=== PATIENT | male | born 1940 | race Caucasian/White ===

== ENCOUNTER 2017-02-17 23:47 | Inpatient (IN) | payer MEDICARE ==
[2017-02-18] MEDS ORDERED: Albuterol/Ipratropium NEB.SOL* Albuterol 2.5 MG/Ipratropium 0.5 MG 3 ML INH ONE (00:09)
[2017-02-18 01:01] LABS: Hematocrit 36 % (42-52); Hemoglobin 11.9 g/dl (14.0-18.0); Mean Corpuscular HGB Conc 33 g/dl (31-36); Mean Corpuscular Hemoglobin 28 pg (27-31); Mean Corpuscular Volume 83 fL (80-94); Mean Platelet Volume 10 um3 (7.4-10.4); Red Blood Count 4.29 10^6/ul (4.0-5.4); Red Cell Distribution Width 14 % (10.5-15); White Blood Count 13.6 10^3/ul (3.5-10.8)
[2017-02-18 01:18] LABS: Albumin 4.4 g/dL (3.2-5.2); BUN/Creatinine Ratio 21.8 (8-20); Calcium 9.6 mg/dL (8.6-10.3); EGFR African American 83.5 (>60); EGFR Non-African American 64.9 (>60); Globulin 3.3 g/dL (2-4); Potassium 3.3 mmol/L (3.5-5.0); Total Bilirubin 1.1 mg/dL (0.2-1.0); Total Protein 7.7 g/dL (6.4-8.9)
[2017-02-18 01:20] LABS: Troponin I 0.57 ng/mL (<0.04)
[2017-02-18] MEDS ORDERED: traMADol TAB* 50 MG PO PRN (01:35)
[2017-02-18] MEDS ORDERED: Ondansetron INJ* 2 MG/ML VIAL IV PRN (01:35)
[2017-02-18] MEDS ORDERED: Morphine INJ* 2 MG/ML 1 ML SYRINGE IV PRN (01:35)
[2017-02-18] MEDS ORDERED: CMCS: Melatonin (NF) 3 MG TAB PO PRN (01:35)
[2017-02-18] MEDS ORDERED: Heparin DRIP 25,000 UNITS(*) 25,000 UNITS/500 ML BAG IVPB SCH (01:45)
--- NOTE | 2017-02-18 01:48 | HP ---
H&P (Free Text) History and Physical: PCP: Zelda Chow MD Date/Time of Evaluation: 02/18/2017 0130 CC: SOB HPI: Mr Jim is a 76YO male HX CAD, DM2, & HTN presents reporting onset last night ~2100 of SOB which progressed quickly to included dull, non-exertional L chest discomfort radiating into the L neck associated with nausea, sweating, and light-headedness, but no palpitations. He monitored it at home for 30min to an hour, but called EMS when it was not improving. Reportedly his saO2 was in the high-80s upon their arrival. They placed him on oxygen which seemed to alleviate his symptoms and gave him 324mg chewable aspirin. Upon arrival to [facility] he reports only SOB which is worse with cough. He denies sick contacts & F/C. He frequently produces phlegm at baseline. ECG shows NSR with ischemic changes in the anterolateral leads. Troponin is 0.05. BNP 542. K+ 3.3. Mg++ 1.8. CXR consistent w/ CHF. PMedHx CAD DM2 HTN Ambulatory Orders Hydrochlorothiazide TAB* [Hydrodiuril TAB*] 25 mg PO DAILY 03/27/14 Metronidazole (Topical) [Metronidazole] 0.75 % TOPICAL DAILY 03/27/14 Sildenafil Citrate [Viagra] 50 mg PO DAILY PRN 03/27/14 metFORMIN* [Glucophage*] 1,000 mg PO BID 03/27/14 Ascorbic Acid [Vitamin C] 500 mg PO DAILY 08/01/14 Aspirin EC Low Dose* [Ecotrin EC Low Dose 81 MG*] 81 mg PO DAILY 08/01/14 Emollient [Beta Care] 1 cre EX BID 08/01/14 Hydrocortisone 1% CREAM* [Hytone Cream 1%*] 1 applic TOPICAL DAILY 08/01/14 Metoprolol Tartrate TAB* [Lopressor TAB*] 50 mg PO BID 08/01/14 Multiple Vitamins W/ Minerals [Multi Vitamin/Minerals Fu] 1 tab PO DAILY Juda-3 Fatty Acids [Juda-3 Fish Oil 1000 mg] 1 cap PO BID 08/01/14 Simvastatin TAB(NF) [Zocor(NF)] 40 mg PO 1700 08/01/14 Allergies No Known Allergies Allergy (Verified 02/18/17 00:12) PSurgHx none SocHx: minor smoking HX w/ <10PYHX, mild alcohol, denies recreational drugs; lives with his ; retired mechanical technician; full code status FamHx: positive for CAD & colon CA ROS: as above, otherwise reviewed and all were negative Constitutional: NAD, normally developed, overweight white male vitals: Vital Signs Temp 37.2 C 02/17/17 23:53 Pulse 76 02/18/17 01:16 Resp 14 02/18/17 01:16 BP 153/89 02/17/17 23:53 Pulse Ox 97 02/18/17 01:16 Intake & Output 02/17/17 02/17/17 02/18/17 11:59 23:59 11:59 Weight 83.915 kg HEENM: atraumatic; sclera/conjunctiva: non-icteric/mildly injected OU; hearing: clinically intact; oropharynx: clear, mucosa moist Neck: soft tissue: non-tender; thyroid: normal Pulmonary: clear to auscultation bilaterally, good aeration, no accessory muscle use CV: RR/RR, normal S1S2, no carotid bruit, no jugular venous distention, 2+ B DP/ PT, no edema Abdominal: soft, non-distended, non-tender, no rebound/guarding/rigidity, normoactive bowel sounds, no hepatosplenomegaly or masses, no costovertebral angle tenderness Musculoskeletal: general: grossly intact; gait: stable Integumental: normal appearance and texture of exposed skin Psychiatric orientation: AA&O to PPS affect: calm mood: cooperative eye contact: good content: reliable responses: mildly slowed insight: fair to good Testing: Lab Results 02/18/17 02/18/17 02/18/17 Range/Units 00:20 00:20 00:20 WBC 13.6 H (3.5-10.8) 10^3/ul RBC 4.29 (4.0-5.4) 10^6/ul Hgb 11.9 L (14.0-18.0) g/dl Hct 36 L (42-52) % MCV 83 (80-94) fL MCH 28 (27-31) pg MCHC 33 (31-36) g/dl RDW 14 (10.5-15) % Plt Count 260 (150-450) 10^3/ul MPV 10 (7.4-10.4) um3 Neut % (Auto) 87.0 H (38-83) % Lymph % (Auto) 7.6 L (25-47) % [place] % (Auto) 4.8 (1-9) % Eos % (Auto) 0.2 (0-6) % Baso % (Auto) 0.4 (0-2) % Absolute Neuts (auto) 11.8 H (1.5-7.7) 10^3/ul Absolute Lymphs (auto) 1.0 (1.0-4.8) 10^3/ul Absolute Monos (auto) 0.7 (0-0.8) 10^3/ul Absolute Eos (auto) 0 (0-0.6) 10^3/ul Absolute Basos (auto) 0.1 (0-0.2) 10^3/ul Absolute Nucleated RBC 0 10^3/ul Nucleated RBC % 0 Sodium 130 L (133-145) mmol/L Potassium 3.3 L (3.5-5.0) mmol/L Chloride 93 L (101-111) mmol/L Carbon Dioxide 26 (22-32) mmol/L Anion Gap 11 (2-11) mmol/L BUN 24 (6-24) mg/dL Creatinine 1.10 (0.67-1.17) mg/dL Est GFR ( Amer) 83.5 (>60) Est GFR (Non-Af Amer) 64.9 (>60) BUN/Creatinine Ratio 21.8 H (8-20) Glucose 253 H (70-100) mg/dL Lactic Acid 2.3 H* (0.5-2.0) mmol/L Calcium 9.6 (8.6-10.3) mg/dL Magnesium Pending Total Bilirubin 1.10 H (0.2-1.0) mg/dL AST 26 (13-39) U/L ALT 12 (7-52) U/L Alkaline Phosphatase 71 (34-104) U/L Troponin I 0.57 H* (<0.04) ng/mL B-Natriuretic Peptide ( - 100) pg/mL Total Protein 7.7 (6.4-8.9) g/dL Albumin 4.4 (3.2-5.2) g/dL Globulin 3.3 (2-4) g/dL Albumin/Globulin Ratio 1.3 (1-3) 02/18/17 Range/Units 00:20 WBC (3.5-10.8) 10^3/ul RBC (4.0-5.4) 10^6/ul Hgb (14.0-18.0) g/dl Hct (42-52) % MCV (80-94) fL MCH (27-31) pg MCHC (31-36) g/dl RDW (10.5-15) % Plt Count (150-450) 10^3/ul MPV (7.4-10.4) um3 Neut % (Auto) (38-83) % Lymph % (Auto) (25-47) % [place] % (Auto) (1-9) % Eos % (Auto) (0-6) % Baso % (Auto) (0-2) % Absolute Neuts (auto) (1.5-7.7) 10^3/ul Absolute Lymphs (auto) (1.0-4.8) 10^3/ul Absolute Monos (auto) (0-0.8) 10^3/ul Absolute Eos (auto) (0-0.6) 10^3/ul Absolute Basos (auto) (0-0.2) 10^3/ul Absolute Nucleated RBC 10^3/ul Nucleated RBC % Sodium (133-145) mmol/L Potassium (3.5-5.0) mmol/L Chloride (101-111) mmol/L Carbon Dioxide (22-32) mmol/L Anion Gap (2-11) mmol/L BUN (6-24) mg/dL Creatinine (0.67-1.17) mg/dL Est GFR ( Amer) (>60) Est GFR (Non-Af Amer) (>60) BUN/Creatinine Ratio (8-20) Glucose (70-100) mg/dL Lactic Acid (0.5-2.0) mmol/L Calcium (8.6-10.3) mg/dL Magnesium Total Bilirubin (0.2-1.0) mg/dL AST (13-39) U/L ALT (7-52) U/L Alkaline Phosphatase (34-104) U/L Troponin I (<0.04) ng/mL B-Natriuretic Peptide 542 H ( - 100) pg/mL Total Protein (6.4-8.9) g/dL Albumin (3.2-5.2) g/dL Globulin (2-4) g/dL Albumin/Globulin Ratio (1-3) ECG, personally reviewed: NSR rate 79, ST elevation V1, deep ST depressions V4-6 , I, & II CXR, personally reviewed: most consistent with CHF Impression: 76M presenting with acute mare/systolic HF and NSTEMI DIAGNOSIS & PLAN Primary NSTEMI w/ HX CAD : ? primary cardiac event vs demand ischemia from acute CHF : telemetry : NPO x/ meds : aspirin (given by EMS) : metoprolol : heparin GTT : trend troponin : supplemental oxygen : Marvin Lombardo MD cardiology called by Asa Malagon MD ED; awaiting return call : supportive care acute mare/systolic HF : strict I&Os : daily weights : furosemide diuresis : check ECHO in AM electrolyte imbalance : replace & recheck Secondary DM2 : basal/correctional insulin : NPO as above : hold metformin : check A1c HTN : metoprolol as above : review meds once reconciled Admission Rational: inpatient for management of NSTEMI & acute HF DVTp: SCDs & heparin GTT Code Status: full HCP:
[2017-02-18 01:58] LABS: Magnesium 1.8 mg/dL (1.9-2.7)
--- NOTE | 2017-02-18 02:50 | ED ---
Luc Arango Michael, scribed for Veronika Malagon MD on 02/18/17 at 0113 . Shortness of Breath - HPI Summary HPI Summary: 76 y/o male was BIBA to the ED presenting with intermittent episodes of SOB that started a few weeks ago. The pt reports that the SOB is aggravated with ambulation and does not wake him up during the night. He also c/o CP and a productive cough. The CP started at 2200 on 02/17/17. The CP was alleviated when given oxygen from EMS. Currently, the pt has no CP. He was given 81mg ASA and his oxygen saturation was 88 prior to EMS arrival. In 2013 the pt had similar symptoms. The PMHx is significant for HTN, DM, and hypercholesterolemia. - History of Current Complaint Chief Complaint: EDShortnessOfBreath Time Seen by Provider: 02/18/17 00:08 Hx Obtained From: Patient, EMS, Medical Records Onset/Duration: Gradual Onset, Lasting Weeks, Still Present Timing: Intermittent Episodes Lasting: Current Severity: Moderate Dyspnea At: Exertion Aggrevating Factors: Movement Alleviating Factors: Oxygen Associated Signs & Symptoms: Cough (Productive), Chest Pain Unrelated to Cough - Allergy/Home Medications Allergies/Adverse Reactions: Allergies Allergy/AdvReac Type Severity Reaction Status Date / Time No Known Allergies Allergy Verified 02/18/17 00:12 Home Medications: Home Medications Amlodipine Besylate [Norvasc 10 mg tab] 10 mg PO DAILY 02/18/17 [History Confirmed 02/18/17] Atorvastatin* [Lipitor*] 20 mg PO 2100 02/18/17 [History Confirmed 02/18/17] Cholecalciferol [Vitamin D] 1,000 unit PO QAM 02/18/17 [History Confirmed ] Ferrous Sulfate [Fe Tabs] 325 mg PO BID 02/18/17 [History Confirmed 02/18/17] Hydralazine HCl 1 tab PO TID 02/18/17 [History Confirmed 02/18/17] Potassium Chloride Microencaps [Potassium Chloride Cr] 10 meq PO DAILY 02/18/17 [History Confirmed 02/18/17] PMH/Surg Hx/FS Hx/Imm Hx Endocrine/Hematology History: Reports: Hx Diabetes Denies: Hx Systemic Lupus Erythematosus Cardiovascular History: Reports: Hx Angina, Hx Coronary Artery Disease, Hx Hypercholesterolemia, Hx Hypertension, Other Cardiovascular Problems/Disorders - HYPERCHOLESTEROLEMIA/HEART MURMUR/CAD/IDDM Denies: Hx Congestive Heart Failure History: Denies: Hx Dialysis, Hx Renal Disease Musculoskeletal History: Denies: Hx Rheumatoid Arthritis Sensory History: Reports: Hx Cataracts, Hx Contacts or Glasses, Hx Hearing Problem Opthamlomology History: Reports: Hx Cataracts, Hx Contacts or Glasses - Cancer History Hx Chemotherapy: No - Immunization History Date of Tetanus Vaccine: unk Date of Influenza Vaccine: utd Infectious Disease History: No Infectious Disease History: Denies: Traveled Outside the [place] in Last 30 Days - Family History Known Family History: Positive: Cardiac Disease - Social History Occupation: Retired Lives: With Family Alcohol Use: Weekly Alcohol Amount: 1-2 beers Substance Use Type: Reports: None Hx Tobacco Use: Yes Smoking Status (MU): Former Smoker Type: Cigarettes Length of Time of Smoking/Using Tobacco: 8 years Have You Smoked in the Last Year: No Review of Systems Positive: Chest Pain Positive: Shortness Of Breath, Cough All Other Systems Reviewed And Are Negative: Yes Physical Exam Triage Information Reviewed: Yes Vital Signs On Initial Exam: Initial Vitals Temp Pulse Resp BP Pulse Ox 99.0 F 87 16 153/89 94 02/17/17 23:53 02/17/17 23:53 02/17/17 23:53 02/17/17 23:53 02/17/17 23:53 Vital Signs Reviewed: Yes Appearance: Positive: Well-Appearing, No Pain Distress Skin: Positive: Warm, Skin Color Reflects Adequate Perfusion, Dry Eyes: Positive: EOMI, [place] ENT: Positive: Pharynx normal, TMs normal Neck: Positive: Supple, Nontender Respiratory/Lung Sounds: Positive: Breath Sounds Present, Other - crackles. Negative: Rales, Rhonchi, Wheezes Cardiovascular: Positive: RRR, Other - no gallops. Negative: Murmur, Rub Abdomen Description: Positive: Nontender, Soft, Other: - no rebound. Negative: Distended, Guarding Bowel Sounds: Positive: Present Musculoskeletal: Positive: Strength/ROM Intact. Negative: Edema Left, Edema Right Neurological: Positive: Sensory/Motor Intact, Alert, Oriented to Person Place, Time, CN Intact II-III Psychiatric: Positive: Affect/Mood Appropriate - [place]e Coma Scale Coma Scale Total: 15 Diagnostics - Vital Signs Vital Signs Temp Pulse Resp BP Pulse Ox 02/17/17 23:53 99.0 F 87 16 153/89 94 - Laboratory Lab Results: Lab Results 02/18/17 02/18/17 02/18/17 Range/Units 00:20 00:20 00:20 WBC 13.6 H (3.5-10.8) 10^3/ul RBC 4.29 (4.0-5.4) 10^6/ul Hgb 11.9 L (14.0-18.0) g/dl Hct 36 L (42-52) % MCV 83 (80-94) fL MCH 28 (27-31) pg MCHC 33 (31-36) g/dl RDW 14 (10.5-15) % Plt Count 260 (150-450) 10^3/ul MPV 10 (7.4-10.4) um3 Neut % (Auto) 87.0 H (38-83) % Lymph % (Auto) 7.6 L (25-47) % [place] % (Auto) 4.8 (1-9) % Eos % (Auto) 0.2 (0-6) % Baso % (Auto) 0.4 (0-2) % Absolute Neuts (auto) 11.8 H (1.5-7.7) 10^3/ul Absolute Lymphs (auto) 1.0 (1.0-4.8) 10^3/ul Absolute Monos (auto) 0.7 (0-0.8) 10^3/ul Absolute Eos (auto) 0 (0-0.6) 10^3/ul Absolute Basos (auto) 0.1 (0-0.2) 10^3/ul Absolute Nucleated RBC 0 10^3/ul Nucleated RBC % 0 Sodium 130 L (133-145) mmol/L Potassium 3.3 L (3.5-5.0) mmol/L Chloride 93 L (101-111) mmol/L Carbon Dioxide 26 (22-32) mmol/L Anion Gap 11 (2-11) mmol/L BUN 24 (6-24) mg/dL Creatinine 1.10 (0.67-1.17) mg/dL Est GFR ( Amer) 83.5 (>60) Est GFR (Non-Af Amer) 64.9 (>60) BUN/Creatinine Ratio 21.8 H (8-20) Glucose 253 H (70-100) mg/dL Lactic Acid 2.3 H* (0.5-2.0) mmol/L Calcium 9.6 (8.6-10.3) mg/dL Magnesium 1.8 L (1.9-2.7) mg/dL Total Bilirubin 1.10 H (0.2-1.0) mg/dL AST 26 (13-39) U/L ALT 12 (7-52) U/L Alkaline Phosphatase 71 (34-104) U/L Troponin I 0.57 H* (<0.04) ng/mL B-Natriuretic Peptide ( - 100) pg/mL Total Protein 7.7 (6.4-8.9) g/dL Albumin 4.4 (3.2-5.2) g/dL Globulin 3.3 (2-4) g/dL Albumin/Globulin Ratio 1.3 (1-3) 02/18/17 Range/Units 00:20 WBC (3.5-10.8) 10^3/ul RBC (4.0-5.4) 10^6/ul Hgb (14.0-18.0) g/dl Hct (42-52) % MCV (80-94) fL MCH (27-31) pg MCHC (31-36) g/dl RDW (10.5-15) % Plt Count (150-450) 10^3/ul MPV (7.4-10.4) um3 Neut % (Auto) (38-83) % Lymph % (Auto) (25-47) % [place] % (Auto) (1-9) % Eos % (Auto) (0-6) % Baso % (Auto) (0-2) % Absolute Neuts (auto) (1.5-7.7) 10^3/ul Absolute Lymphs (auto) (1.0-4.8) 10^3/ul Absolute Monos (auto) (0-0.8) 10^3/ul Absolute Eos (auto) (0-0.6) 10^3/ul Absolute Basos (auto) (0-0.2) 10^3/ul Absolute Nucleated RBC 10^3/ul Nucleated RBC % Sodium (133-145) mmol/L Potassium (3.5-5.0) mmol/L Chloride (101-111) mmol/L Carbon Dioxide (22-32) mmol/L Anion Gap (2-11) mmol/L BUN (6-24) mg/dL Creatinine (0.67-1.17) mg/dL Est GFR ( Amer) (>60) Est GFR (Non-Af Amer) (>60) BUN/Creatinine Ratio (8-20) Glucose (70-100) mg/dL Lactic Acid (0.5-2.0) mmol/L Calcium (8.6-10.3) mg/dL Magnesium (1.9-2.7) mg/dL Total Bilirubin (0.2-1.0) mg/dL AST (13-39) U/L ALT (7-52) U/L Alkaline Phosphatase (34-104) U/L Troponin I (<0.04) ng/mL B-Natriuretic Peptide 542 H ( - 100) pg/mL Total Protein (6.4-8.9) g/dL Albumin (3.2-5.2) g/dL Globulin (2-4) g/dL Albumin/Globulin Ratio (1-3) Result Diagrams: 02/18/17 00:20 02/18/17 00:20 Lab Statement: Any lab studies that have been ordered have been reviewed, and results considered in the medical decision making process. - EKG EK EKG Rhythm: Sinus Rhythm - 79 bpm EKG Interpretation: st depression anterior and laterally. LVH. no PVCs. EKG Comparison: Other - repolarization changes are worse than previous EKG on Course/Dx - Course Course Of Treatment: Discussed patient care with Dr. Shay (Hospitalist) at 0124. The pt will be accepted as an admission. Pt with signs of sob and cough over last few weeks with cp at 10pm tonight and sob lasting until 02 placed by paramedics when he was found with sats in the low 80's.EKG with mild elevation in V1 not new from last ekg but ant /lat st depressions that are new, trop is 0.5 and lactic is elevated. Case discussed at length with Dr. Owusu both agree this does not look an ST elevation ND and that pt is in failure with non-ST ND. Calls out to Dr. Lombardo to make him aware. - Diagnoses Provider Diagnoses: Myocardial infarction acute, CHF (congestive heart failure) Discharge - Discharge Plan Condition: Stable Disposition: ADMITTED TO [facility] Discharge Disposition Comment: accepted as an admission by Dr. Shay The documentation as recorded by the izzyibLuc raphael Michael accurately reflects the service I personally performed and the decisions made by me, Veronika Malagon MD.
[2017-02-18] MEDS ORDERED: Metoprolol Tartrate TAB* 25 MG PO ONE (03:12)
[2017-02-18] MEDS ORDERED: Magnesium Sulfate 2 GM IV* 2 GM/50 ML BAG IVPB ONE (03:16)
[2017-02-18] MEDS ORDERED: Furosemide IV* 10 MG/ML 10 ML VIAL (100 MG) IV ONE (03:19)
[2017-02-18] MEDS ORDERED: Heparin VIAL(*) 5000 UNITS/ML VIAL (FIVE THOUSAND) ONE (03:29)
[2017-02-18] MEDS ORDERED: Heparin VIAL(*) 5000 UNITS/ML VIAL (FIVE THOUSAND) IV ONE (03:34)
[2017-02-18] MEDS: Potassium Chlor TAB* 20 MEQ TAB.ER PO SCH ×2 (05:02→08:47)
[2017-02-18] MEDS: Insulin LISPRO* 1 UNITS UNIT SUBCUT SCH ×2 (05:25→08:28)
[2017-02-18 05:35] LABS: Hematocrit 32 % (42-52); Hemoglobin 10.8 g/dl (14.0-18.0); Mean Corpuscular HGB Conc 34 g/dl (31-36); Mean Corpuscular Hemoglobin 28 pg (27-31); Mean Corpuscular Volume 82 fL (80-94); Mean Platelet Volume 9 um3 (7.4-10.4); Red Blood Count 3.85 10^6/ul (4.0-5.4); Red Cell Distribution Width 14 % (10.5-15); White Blood Count 14.1 10^3/ul (3.5-10.8)
[2017-02-18 05:55] LABS: BUN/Creatinine Ratio 21.1 (8-20); Calcium 9.2 mg/dL (8.6-10.3); EGFR African American 98.9 (>60); EGFR Non-African American 76.9 (>60); HDL Cholesterol 30.9 mg/dL; Magnesium 1.8 mg/dL (1.9-2.7); Potassium 3.2 mmol/L (3.5-5.0)
[2017-02-18 05:58] LABS: Troponin I 9.78 ng/mL (<0.04)
[2017-02-18] MEDS ORDERED: Omeprazole CAP* 20 MG PO SCH (06:00)
[2017-02-18] MEDS ORDERED: Furosemide IV* 10 MG/ML 10 ML VIAL (100 MG) IV SCH (08:00)
--- NOTE | 2017-02-18 08:14 | RAD ---
Indication: Shortness of breath. 2 views of the chest including dual energy PA views are reviewed and compared to previous exam dated August 01, 2014. Cardiomegaly is noted. Interstitial edema consistent with CHF is noted. Small bilateral pleural effusions are present. IMPRESSION: INTERSTITIAL EDEMA CONSISTENT WITH CHF. THERE MAY BE SMALL BILATERAL PLEURAL EFFUSIONS NOTED.
[2017-02-18 08:28] VITALS: BP 135/65
[2017-02-18 08:37] LABS: BUN/Creatinine Ratio 18.8 (8-20); Calcium 9.1 mg/dL (8.6-10.3); EGFR African American 92.1 (>60); EGFR Non-African American 71.6 (>60); Potassium 3.4 mmol/L (3.5-5.0)
[2017-02-18 08:48] LABS: Troponin I 16.83 ng/mL (<0.04)
[2017-02-18] MEDS ORDERED: amLODIPine TAB* 5 MG PO SCH (09:00)
[2017-02-18] MEDS ORDERED: Docusate CAP* 100 MG PO SCH (09:00)
[2017-02-18] MEDS ORDERED: Metoprolol Tartrate TAB* 50 mg PO SCH (09:00)
[2017-02-18] MEDS ORDERED: diPHENhydraMINE PO* 50 MG PO ONE (09:00)
[2017-02-18] MEDS ORDERED: Diazepam TAB(*) 5 MG PO ONE (09:00)
[2017-02-18] MEDS ORDERED: NS 0.45% 1000 ML BAG* 1,000 ML IV SCH (09:00)
[2017-02-18] MEDS ORDERED: Aspirin EC Low Dose* 81 MG TAB.EC PO SCH (09:00)
--- NOTE | 2017-02-18 09:40 | ECHO ---
Patient: NARENDRA SANDOVAL [facility] Rec#: [id number] : 1940 Date: 02/18/2017 Age: 76y Height: 170.18 cm / 67.0 in Weight: 81.19 kg / 178.9 lbs Sex: M BSA: 1.93 Room#: 453 Admit Date#: 02/18/2017 Type: Inpatient Referring: Carson Shay MD Reading: Yessica Lombardo MD Manager Data Warehousing: Lilian Harvey Manager Data Warehousing: Agnieszka Hernandez RDCS CC: Ana Rosa Chow MD Transthoracic Echocardiogram Indication: NSTEMI, CHF. BP: 133/116 HR: 63 Rhythm: NSR Indications Acute Coronary Syndrome Findings History: CAD, DM, HTN, acute CHF. Technical Comments: The study quality is fair. Completed at 0930. Left Ventricle: The left ventricular chamber size is normal. Moderate concentric left ventricular hypertrophy is observed. Left ventricular systolic function is at the lower limits of normal. The estimated ejection fraction is 50-55%. Closer to 50% and inferior/pos wall hypokinesis. There is no consistent Doppler evidence of clinically significant diastolic dysfunction. The patient was unable to perform a Valsalva maneuver. Left Atrium: The left atrium is mildly dilated. Right Ventricle: The right ventricular cavity size is normal. The right ventricular global systolic function is normal. Right Atrium: The right atrium is mildly dilated. Aortic Valve: The aortic valve is trileaflet. Moderate aortic leaflet calcification is visualized. Systolic excursion of the aortic valve cusps is reduced. There is mild aortic regurgitation. There is moderate aortic stenosis. The mean gradient of the aortic valve is 9.4 mmHg. The peak instantaneous gradient of the aortic valve is 26.39 mmHg. The aortic valve area, by peak velocities, is calculated at 1.04 cm2. The aortic valve area, by VTI's, is calculated at 1.4 cm2. Highest aortic valve velocity was acquired with Pedoff in right sternal border position. Mitral Valve: There is mitral annular calcification.Severe Mitral valve posterior leaflet calcification is visualized. There is moderate mitral regurgitation. There is no evidence of mitral stenosis. Tricuspid Valve: The tricuspid valve leaflets are normal. There is trace to mild tricuspid regurgitation. No pulmonary hypertension is noted. There is no tricuspid stenosis. Pulmonic Valve: The pulmonic valve structure is not well visualized. There is a trace pulmonic regurgitation. There is no pulmonic stenosis. Pericardium: There is no significant pericardial effusion. Aorta: There is no dilatation of the ascending aorta. The aortic arch is not well visualized. There is no dilation of the aortic root. Pulmonary Artery: The main pulmonary artery is not well visualized. Venous: The inferior vena cava appears normal in size. There is a greater than 50% respiratory change in the inferior vena cava dimension. Summary: There are changes noted when compared to the previous study done on 08/01/2014, LV EF appears less now from 55-60% then and new WMA. and MR are stable. 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 Conclusions The left ventricular chamber size is normal. Moderate concentric left ventricular hypertrophy is observed. The estimated ejection fraction is 50-55%. Closer to 50% and inferior/pos wall hypokinesis. The left atrium is mildly dilated. The right atrium is mildly dilated. Moderate aortic leaflet calcification is visualized. There is mild aortic regurgitation. There is moderate aortic stenosis. There is moderate mitral regurgitation. There is mitral annular calcification.Severe There is trace to mild tricuspid regurgitation. No pulmonary hypertension is noted. Measurements Name Value Normal Range RVIDd (AP) 2D 2.1 cm (0.9 - 2.6) RVDdMajor (2D) 2.8 cm (2.2 - 4.4) RAd ISD 4CH 5.7 cm (3.4 - 4.9) RA (A4C)W 4.1 cm (2.9 - 4.6) IVSd (2D) 1.6 cm (0.6 - 1) LVPWd (2D) 1.3 cm (0.6 - 1) LVIDd (2D) 4.7 cm (3.6 - 5.4) LVIDs (2D) 3.3 cm - LV FS (2D) 31 % (25 - 45) Aortic Annulus 2 cm (1.4 - 2.6) Ao root diameter (2D) 3.3 cm (2.1 - 3.5) Ascending Ao 2.9 cm (2.1 - 3.4) LA dimension (AP) 2D 4.4 cm (2.3 - 3.8) LAd ISD 4CH 5.6 cm (2.9 - 5.3) LA ISD 4CH W 5.9 cm (2.5 - 4.5) Name Value Normal Range LA ESV SP 4CH (A/L) 108 ml - LA ESV SP 2CH (A/L) 57 ml - LA ESV BP (A/L) 79 ml - LA ESV BP (A/L) index 40.82 ml/m2 - LA ESV SP 4CH (MOD) 103 ml - LA ESV SP 2CH (MOD) 54 ml - Name Value Normal Range MV E-wave Vmax 1.75 m/sec - MV deceleration time 198.4 msec - MV A-wave Vmax 0.64 m/sec - MV E:A ratio 2.71 ratio - LV lateral e' Vmax 0.06 m/sec - LV average e' Vmax 0.06 m/sec - LV E:e' septal ratio 29.17 ratio - LV E:e' lateral ratio 29.17 ratio - Name Value Normal Range AV Vmax 2.57 m/sec - AV VTI 45.8 cm - AV peak gradient 26.39 mmHg - AV mean gradient 9.4 mmHg - LVOT diameter 2 cm - LVOT Vmax 0.85 m/sec - LVOT VTI 20.4 cm - LVOT peak gradient 2.96 mmHg - LVOT mean gradient 1.66 mmHg - DOI (VTI) 0.45 ratio - COURTNEY (continuity Vmax) 1.04 cm2 - COURTNEY (continuity VTI) 1.4 cm2 - Name Value Normal Range MV Vmax 1.71 m/sec - MV VTI 43.74 cm - MV peak gradient 11.66 mmHg - MV mean gradient 2.05 mmHg - MV PHT 42.67 msec - MR Vmax 5.98 m/sec - MR VTI 173.26 cm - MVA (PHT) 5.16 cm2 - Name Value Normal Range TR Vmax 2.1 m/sec - TR peak gradient 18 mmHg - RAP 3 mmHg - RVSP 21 mmHg - IVC diameter 1.5 cm - Name Value Normal Range PV Vmax 0.94 m/sec - PV peak gradient 3.51 mmHg -
[2017-02-18] MEDS ORDERED: Midazolam* 1 MG/ML 5 ML VIAL (5 MG) ONE (09:51)
[2017-02-18] MEDS ORDERED: Lidocaine 1% INJ* 10 MG/ML 30 ML SDV ONE ×2 (09:51→10:11)
[2017-02-18] MEDS ORDERED: fentaNYL* 50 MCG/ML 2 ML VIAL (100 MCG VIAL) ONE (09:51)
[2017-02-18] MEDS ORDERED: Iohexol 350 (CONTRAST) 200 ML MDV IV ONE (09:51)
[2017-02-18] MEDS ORDERED: Heparin 2 UNITS/ML IVPREMIX* 3,000 ML IV ONE (09:51)
--- NOTE | 2017-02-18 11:29 | CONS ---
CC: Dr. Yuen, Dr. Chow, Dr. Reid, log sorter; Dr. Lombardo CONSULTATION REPORT: DATE OF CONSULT: 02/18/17 HISTORY OF PRESENT ILLNESS: I was asked this morning by Dr. Yuen from the hospitalist service to see this 76-year-old male patient who was admitted last night with symptoms of chest pain, shortness of breath, and was found to have abnormal troponin and BNP. Of note, I was not covering cardiology services after 5 p.m. last night. I was not in call for cardiology services after 5 p.m. last h t. Apparently, the patient does have known history of coronary artery disease, full detailed inform ation not immediately available. According to the patient and the , he was seen at the [facility] for a cardiac catheterization, but no further intervention was needed at that time. He does have history of hypertension, diabetes mellitus, hyperlipidemia, obesity, and family history of CAD. Apparently, he presented with some chest discomfort, shortness of breath. He was found to have elevated BNP of 500. Initially, troponin was 0.57 and that was at 12:20 in the morning. It did go up to 9.78 this morning at 5:25 this morning. His BNP was 542 at 1 2:20 this morning. His potassium was low at 3.3. It is 3.2 at 5:25 this morning. The patient is c urrently chest pain-free. As I understand, he was started on IV heparin drip. He did receive beta- blockers, Norvasc, and Lasix and replenishing for his low potassium and cardiology consult was furth er requested. When I see the patient this morning, he had no symptoms of chest pain. At the presen t time, he had no nausea, no vomiting, no hematochezia, no skin rash, no abdominal pain, no syncope, no fever, no chills, no significant swelling of the lower extremities. His review of all other sys tems essentially is negative. His EKG was found to have significantly abnormal from 12:54. We have an EKG from 6:32 this morning and it showed him to have diffuse ST depression in V3, V4, V5 as well as V6. No active acute ST elevations was appreciated. PAST MEDICAL HISTORY: Include history of coronary artery disease, history of diabetes mellitus, sys temic arterial hypertension, hyperlipidemia. PAST SURGICAL HISTORY: None. MEDICATIONS: His medications currently include: 1. Norvasc 10 mg daily. 2. Aspirin 81 mg daily. 3. Lipitor 20 mg daily. 4. Colace 200 mg twice a day. 5. Lasix IV 200 mg IV. 6. Heparin adjusted to his PTT. 7. Insulin coverage. 8. Metformin as an outpatient is on hold. 9. Lopressor 50 mg b.i.d. 10. Prilosec 20 mg daily. ALLERGIES: No known allergies. FAMILY HISTORY: There is history of coronary artery disease. SOCIAL HISTORY: He gives no history of smoking. No drinking. No history of illicit drug abuse. REVIEW OF SYSTEMS: Review of all other systems essentially is negative. PHYSICAL EXAM: On exam, he is awake, alert, and oriented. He had no symptoms of chest pain. Vital s: Blood pressure is 169/73, pulse is 80, sinus rhythm, temperature 97.7, respirations 16. Head an d Neck Exam: Normocephalic, atraumatic head. Ears, Nose, and Throat: Essentially benign. Neck: Supple. JVP is not elevated. No carotid bruit. No masses in the neck is appreciated. Chest: [place] ar to auscultation with diminished air entry at the bases. Heart: Normal. Regular S1, S2. No add ed sounds, no gallops, no rubs. Abdomen: Benign. Positive bowel sounds. Extremities: No edema, no cyanosis, no clubbing. Skin Exam: Normal. Psych: Normal affect and mood. 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 DIAGNOSTIC STUDIES/LAB DATA: His chest x-ray was reported the patient to have some interstitial lila ma consistent with congestive heart failure. There might be a small bilateral pleural effusion. His labs; sodium is 131, potassium 3.2, chloride 96, total CO2 25, BUN 20, creatinine 0.95, glucose 160. Troponin 9.78, triglycerides 76, cholesterol 129, LDL 83, HDL 31. White blood cell is 14.1, h emoglobin 10.8, hematocrit 32, platelets 241. IMPRESSION: The patient is a 76-year-old male patient with; 1. Presentation with non-ST elevation myocardial infarction by EKG and troponins. 2. Known history of coronary artery disease, full detailed information not immediately available. 3. Systemic arterial hypertension. 4. Diabetes mellitus. 5. Hyperlipidemia. 6. Abnormal EKG as described. 7. Obesity. 8. Family history of CAD. 9. Hypokalemia. 10. Elevated BNP and chest x-ray consistent with some element of congestive heart failure. PLAN: Currently, the patient is on telemetry. He is chest pain free. We are in agreement to ankur nue his aspirin, beta-venecia treatment, and heparin. Replenish his potassium to at least 3.8 or mo re and echo is in progress to evaluate his left ventricular systolic function and any significant va lvular disease and further definite evaluation by left cardiac catheterization to evaluate his coron leandro anatomy. Benefits and risks discussed with the patient. He is willing to proceed. Any further recommendations will be based on the result of his cardiac catheterization. We will try to obtain h is old records and to see his previous cardiac catheterization for his coronary anatomy. I answered all of his concerns and questions up to his satisfaction. TIME SPENT: More than half at least 60 to 65 plus minutes was in education and counseling mode, fac e-to-face answering all of the risks, concerns, and questions up to his satisfaction. [id number]/[facility] #: [id number]
[2017-02-18] MEDS ORDERED: NS 0.9% 1000 ML* 1,000 ML IV SCH (11:45)
[2017-02-18] MEDS ORDERED: Acetaminophen TAB* 325 MG PO PRN (11:47)
[2017-02-18] MEDS ORDERED: oxyCODONE/Acetamin 5/325 MG* TAB PO PRN (11:47)
[2017-02-18] MEDS ORDERED: Nitroglycerin TAB 0.4 MG* 0.4 MG TAB SL PRN (11:47)
--- NOTE | 2017-02-18 11:50 | DCNOTE ---
Objective Active Medications: Amlodipine Besylate (Norvasc Tab*) 10 mg PO DAILY [facility] Last Admin: 02/18/17 08:29 Dose: 5 mg Aspirin (Aspirin Ec Low Dose*) 81 mg PO DAILY [facility] Last Admin: 02/18/17 08:29 Dose: 81 mg Atorvastatin Calcium (Lipitor*) 20 mg PO 2100 [facility] Docusate Sodium (Colace Cap*) 200 mg PO BID [facility] Last Admin: 02/18/17 08:56 Dose: Not Given Furosemide (Lasix Iv*) 20 mg IV 0800,1200 [facility] Last Admin: 02/18/17 08:28 Dose: 20 mg Heparin Sodium/Dextrose (Heparin Drip 25,000 Units(*)) 25,000 units in 500 mls @ 0 mls/hr IVPB .(INITIAL RATE) [facility]; Per Protocol PRN Reason: Protocol Last Admin: 02/18/17 03:35 Dose: 27 mls/hr Sodium Chloride (Ns 0.45% 1000 Ml Bag*) 1,000 mls @ 60 mls/hr IV .PER RATE [facility] Insulin Glargine (Lantus(*)) 17 units SUBCUT 2100 [facility] Stop: 02/19/17 20:00 Insulin Human Lispro (Humalog*) 0 units SUBCUT Q4H [facility] PRN Reason: Protocol Last Admin: 02/18/17 08:28 Dose: 1 unit Melatonin (Melatonin (Nf)) 3 mg PO BEDTIME PRN; Protocol PRN Reason: Sleep Metoprolol Tartrate (Lopressor Tab*) 50 mg PO BID [facility] Last Admin: 02/18/17 08:29 Dose: 25 mg Morphine Sulfate (Morphine Inj (Syringe)*) 2 mg IV Q4H PRN PRN Reason: PAIN - MILD Omeprazole (Prilosec Cap*) 20 mg PO DAILY@0600 [facility] Last Admin: 02/18/17 05:25 Dose: 20 mg Ondansetron HCl (Zofran Inj*) 4 mg IV Q6H PRN PRN Reason: NAUSEA Tramadol HCl (Ultram*) 50 mg PO Q6H PRN PRN Reason: PAIN Vital Signs 02/18/17 02/18/17 02/18/17 02:00 02:11 02:25 Temperature Pulse Rate 74 76 Respiratory 18 17 22 Rate Blood Pressure 105/83 (mmHg) O2 Sat by Pulse 95 97 Oximetry 02/18/17 02/18/17 02/18/17 02:30 02:33 03:00 Temperature Pulse Rate 86 90 78 Respiratory 22 19 23 Rate Blood Pressure 126/107 157/80 147/70 (mmHg) O2 Sat by Pulse 96 95 97 Oximetry 02/18/17 02/18/17 02/18/17 03:30 03:57 04:00 Temperature Pulse Rate 75 84 Respiratory 19 27 Rate Blood Pressure 146/101 133/116 (mmHg) O2 Sat by Pulse 96 94 Oximetry 02/18/17 02/18/17 02/18/17 04:01 04:14 07:14 Temperature 97.7 F 97.7 F Pulse Rate 75 80 64 Respiratory 22 16 24 Rate Blood Pressure 169/73 135/65 (mmHg) O2 Sat by Pulse 94 99 95 Oximetry 02/18/17 02/18/17 08:00 09:35 Temperature Pulse Rate Respiratory 18 18 Rate Blood Pressure (mmHg) O2 Sat by Pulse Oximetry Result Diagrams: 02/18/17 05:24 02/18/17 08:10 Additional Lab and Data: Lab Results 02/18/17 02/18/17 02/18/17 Range/Units 00:20 00:20 00:20 WBC 13.6 H (3.5-10.8) 10^3/ul RBC 4.29 (4.0-5.4) 10^6/ul Hgb 11.9 L (14.0-18.0) g/dl Hct 36 L (42-52) % MCV 83 (80-94) fL MCH 28 (27-31) pg MCHC 33 (31-36) g/dl RDW 14 (10.5-15) % Plt Count 260 (150-450) 10^3/ul MPV 10 (7.4-10.4) um3 Neut % (Auto) 87.0 H (38-83) % Lymph % (Auto) 7.6 L (25-47) % [place] % (Auto) 4.8 (1-9) % Eos % (Auto) 0.2 (0-6) % Baso % (Auto) 0.4 (0-2) % Absolute Neuts (auto) 11.8 H (1.5-7.7) 10^3/ul Absolute Lymphs (auto) 1.0 (1.0-4.8) 10^3/ul Absolute Monos (auto) 0.7 (0-0.8) 10^3/ul Absolute Eos (auto) 0 (0-0.6) 10^3/ul Absolute Basos (auto) 0.1 (0-0.2) 10^3/ul Absolute Nucleated RBC 0 10^3/ul Nucleated RBC % 0 Sodium 130 L (133-145) mmol/L Potassium 3.3 L (3.5-5.0) mmol/L Chloride 93 L (101-111) mmol/L Carbon Dioxide 26 (22-32) mmol/L Anion Gap 11 (2-11) mmol/L BUN 24 (6-24) mg/dL Creatinine 1.10 (0.67-1.17) mg/dL Est GFR ( Amer) 83.5 (>60) Est GFR (Non-Af Amer) 64.9 (>60) BUN/Creatinine Ratio 21.8 H (8-20) Glucose 253 H (70-100) mg/dL Lactic Acid 2.3 H* (0.5-2.0) mmol/L Calcium 9.6 (8.6-10.3) mg/dL Magnesium 1.8 L (1.9-2.7) mg/dL Total Bilirubin 1.10 H (0.2-1.0) mg/dL AST 26 (13-39) U/L ALT 12 (7-52) U/L Alkaline Phosphatase 71 (34-104) U/L Troponin I 0.57 H* (<0.04) ng/mL B-Natriuretic Peptide ( - 100) pg/mL Total Protein 7.7 (6.4-8.9) g/dL Albumin 4.4 (3.2-5.2) g/dL Globulin 3.3 (2-4) g/dL Albumin/Globulin Ratio 1.3 (1-3) 02/18/17 Range/Units 00:20 WBC (3.5-10.8) 10^3/ul RBC (4.0-5.4) 10^6/ul Hgb (14.0-18.0) g/dl Hct (42-52) % MCV (80-94) fL MCH (27-31) pg MCHC (31-36) g/dl RDW (10.5-15) % Plt Count (150-450) 10^3/ul MPV (7.4-10.4) um3 Neut % (Auto) (38-83) % Lymph % (Auto) (25-47) % [place] % (Auto) (1-9) % Eos % (Auto) (0-6) % Baso % (Auto) (0-2) % Absolute Neuts (auto) (1.5-7.7) 10^3/ul Absolute Lymphs (auto) (1.0-4.8) 10^3/ul Absolute Monos (auto) (0-0.8) 10^3/ul Absolute Eos (auto) (0-0.6) 10^3/ul Absolute Basos (auto) (0-0.2) 10^3/ul Absolute Nucleated RBC 10^3/ul Nucleated RBC % Sodium (133-145) mmol/L Potassium (3.5-5.0) mmol/L Chloride (101-111) mmol/L Carbon Dioxide (22-32) mmol/L Anion Gap (2-11) mmol/L BUN (6-24) mg/dL Creatinine (0.67-1.17) mg/dL Est GFR ( Amer) (>60) Est GFR (Non-Af Amer) (>60) BUN/Creatinine Ratio (8-20) Glucose (70-100) mg/dL Lactic Acid (0.5-2.0) mmol/L Calcium (8.6-10.3) mg/dL Magnesium (1.9-2.7) mg/dL Total Bilirubin (0.2-1.0) mg/dL AST (13-39) U/L ALT (7-52) U/L Alkaline Phosphatase (34-104) U/L Troponin I (<0.04) ng/mL B-Natriuretic Peptide 542 H ( - 100) pg/mL Total Protein (6.4-8.9) g/dL Albumin (3.2-5.2) g/dL Globulin (2-4) g/dL Albumin/Globulin Ratio (1-3) Assess/Plan/Problems-Billing Assessment: - Patient Problems (1) CAD (coronary artery disease) Status: Chronic Priority: Medium Code(s): I25.10 - ATHSCL HEART DISEASE OF [place] CORONARY ARTERY W/O ANG PCTRS SNOMED Code(s): 86789934 Comment: Discussed with Dr. Lombardo. Severe triple vessel disease plus mod . Pt to be transferred to [facility], Dr. Teague, possible open heart surgery. Pt stable for transport at this time.
--- NOTE | 2017-02-18 11:50 | PN ---
Progress Note - Progress Note Note: Time spent on discharge/transfer 50 minutes. I discussed the findings and tx at length with his also. I spoke with Dr. Lombardo also.
--- NOTE | 2017-02-18 12:11 | TRS ---
CC: Dr. Ana Rosa Chow DATE OF ADMISSION: 02/18/2017. DATE OF TRANSFER: 02/18/2017. HISTORY: This 76-year-old man had the onset on 02/17/2017 late in the evening, about 9:00 p.m., shortness of breath and then chest discomfort radiating into the left neck with nausea, diaphoresis, and lightheadedness. He waited 30 to 60 minutes, but with no improvement and then called the ambulance. The admission history and physical details the rest of the presentation. The patient was placed in a monitored bed. His troponin carrie from 0.57 to 9.78. A third value was 16.83. The patient had cardiac catheterization showing severe triple vessel disease and moderate aortic stenosis. Left ventricular function was at most mildly diminished. The patient tolerated the procedure well. When I saw the patient, he was still slightly sedated from the procedure medications. He denied chest pain. He was breathing easily. Skin was warm and dry. He had a 3/6 systolic murmur at the right sternal border. Lungs are clear anteriorly. There is no pedal edema. No skin lesions. The patient is being transferred to [facility] under the care of Dr. Teague for consideration of open heart surgery, possibly including a coronary bypass grafting and/or aortic valve replacement. He is on a Heparin drip with IV fluids running. Final Diagnosis: Acute myocardial infarction Aortic stenosis. [id number]/[facility] #: [id number] MTDD
--- NOTE | 2017-02-18 13:19 | CATH ---
CC: Dr. Yuen; Dr. Lombardo; Dr. Chow CARDIAC CATHETERIZATION: DATE OF PROCEDURE: 02/18/17 PROCEDURE: Left cardiac catheterization, selective coronary angiography, left ventriculography. INDICATIONS: The patient is a 76-year-old male patient who presented with symptoms of chest pain, s hortness of breath, ruled in for non-ST elevation myocardial infarction by significantly abnormal EK G and significantly elevated troponin. He does have known history of coronary artery disease in the past. He does have a history of diabetes mellitus. He was further referred for cardiac catheteriz ation to evaluate his coronary anatomy. DESCRIPTION OF PROCEDURE: After informed written consent had been obtained, the patient was brought in to the cardiac catheterization lab where the right femoral region was prepped and draped in the usual sterile fashion. A 1% Xylocaine was used for local anesthesia. Next, the right femoral arter y was entered and 6 Occ[place] sheath placed into the right femoral artery. Through the right femoral a rtery sheath, a 6-Occitan JR4 catheter was advanced over the arch of the aorta, left coronary engaged , and left coronary arteriography performed. This catheter was removed and a 6-[place] JR4 catheter was advanced over the arch of the aorta, right coronary engaged, and right coronary arteriography pe rformed. This catheter was removed. Left ventriculography was not performed as the patient just mendoza d transthoracic echocardiogram today this morning and he is diabetic, to minimize any diabetes, neph rotoxicity induced. The sheath was sutured in and the patient will be transferred to [facility] in [place] for complete revascularization by coronary artery bypass grafting. HEMODYNAMICS: The aortic pressure is 156/66. ANGIOGRAPHIC RESULTS: 1. Left Main Coronary Artery: The left main coronary artery was a short vessel. It gave rise to a left anterior descending artery, ramus intermedius and circumflex coronary artery. The left main wa s free of any significant disease. 2. Left Anterior Descending Artery: The left anterior descending artery was a good caliber vessel. It did reach and wrap around the apex of the left ventricle. It was heavily classified, severely d eceased. In the proximal segment, there was about at least 90% disease stenosis. 3. Ramus intermedius was a small caliber vessel. In the ostium to the proximal segment, there was about 80% stenosis. 4. Circumflex Coronary Artery: The circumflex coronary artery was a large caliber vessel. It was diffusely diseased and calcified. In the mid segment, there was about 99% stenosis. 5. Right Coronary Artery: The right coronary artery was a good caliber vessel. In the ostium to th e proximal segment, there was about at least 90% stenosis. In the mid segment, there was about 95% stenosis. CONCLUSION: 1. 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 2. The patient will be transferred to [facility] in [place] to have complete revasculariz ation with coronary artery bypass grafting with Dr. Teague whom kindly accepted the transfer and I discussed this patient further with him via phone today. Also, the patient will need aortic valve replacement given that his transthoracic echocardiogram showed at least moderate valvular aortic pamela nosis. I have discussed this all with Dr. Yuen from the hospitalist service. [id number]/[facility] #: [id number]
[2017-02-18] MEDS ORDERED: Insulin GLARGINE(*) 1 UNITS UNIT SUBCUT SCH (21:00)
[2017-02-18] MEDS ORDERED: Atorvastatin* 20 MG TAB PO SCH (21:00)
== END 2017-02-18 12:45 | disposition short-term general hospital (02) | DRG 280 ==
LOC: ED 23:47 → MEDTELE 02-18 01:30
PROVIDERS: ADMIT Hospitalist; ATTEND Internal Medicine
PROC: B211YZZ Fluoroscopy of Multiple Coronary Arteries using Other Contrast (ICD-10-PCS; 2017-02-18)
PROC: 4A023N7 Measurement of Cardiac Sampling and Pressure, Left Heart, Percutaneous Approach (ICD-10-PCS; principal; 2017-02-18 10:00)
DX: I21.4 Non-ST elevation (NSTEMI) myocardial infarction (principal); I50.41 Acute combined systolic (congestive) and diastolic (congestive) heart failure; I35.0 Nonrheumatic aortic (valve) stenosis; E11.9 Type 2 diabetes mellitus without complications; I25.10 Atherosclerotic heart disease of native coronary artery without angina pectoris; I11.0 Hypertensive heart disease with heart failure; E78.5 Hyperlipidemia, unspecified; E66.9 Obesity, unspecified; E87.6 Hypokalemia; Z68.28 Body mass index [BMI] 28.0-28.9, adult; Z79.84 Long term (current) use of oral hypoglycemic drugs; Z79.1 Long term (current) use of non-steroidal anti-inflammatories (NSAID); Z79.899 Other long term (current) drug therapy; Z87.891 Personal history of nicotine dependence; Z82.49 Family history of ischemic heart disease and other diseases of the circulatory system; Z80.0 Family history of malignant neoplasm of digestive organs
CPT/HCPCS: 36415; 71020; 80048; 80053; 80061; 83036; 83605; 83735; 83880; 84484; 85025; 87040; 93005; 93306; 93454; 94640; A9270-GY; C1887; J1644; J1940; J2001; J2250; J3010

== ENCOUNTER 2020-01-06 23:59 | Inpatient (IN) | payer MEDICARE ==
[2020-01-07] MEDS ORDERED: Iodixanol* (CONTRAST) 320 MG/ML 100 ML SDV IV ONE (00:24)
--- NOTE | 2020-01-07 00:25 | ED ---
Neurological HPI - HPI Summary HPI Summary: Patient is an 79 y/o M presenting to [facility] via EMS for vision loss and aphasia after falling the evening of 01/06/20. had reported that the patient had ambulated to their kitchen when she heard the patient fall. She called a friend to help her get the patient back up. Vision loss was subsequently noted. Last known well is 2210 01/06/20. EMS states that after their arrival, they noted the patient gradually developed aphasia. No weakness, numbness, parethesia noted. He is noted to not be currently on any anticoagulation therapy but is on baby ASA. PMHx of HTN, HLD, diabetes, CAD, afib, respiratory failure noted on medical records. accompanies the patient. Patient usually wears glasses, but vision is still impaired while wearing them. Home medications and allergies are reviewed. Provider evaluated patient at 2358, abril valdes called at 2359, patient wheeled to imaging for Brain CT immediately. - History of Current Complaint Stated Complaint: VISION LOSS PER EMS Time Seen by Provider: 01/07/20 00:00 Hx Obtained From: Patient, Family/Land Resource Specialist, EMS Onset/Duration: Started hours ago Timing: Constant Pain Scale Used: 0-10 Numeric Character: Impaired Speech, Visual Changes Associated Signs and Symptoms: Positive: Visual Changes, Impaired Speech - Allergy/Home Medications Allergies/Adverse Reactions: Allergies Allergy/AdvReac Type Severity Reaction Status Date / Time No Known Allergies Allergy Verified 01/07/20 00:25 Home Medications: Home Medications Hydrochlorothiazide TAB* [Hydrodiuril TAB*] 25 mg PO DAILY 03/27/14 [History Confirmed 01/07/20] Sildenafil Citrate [Viagra] 50 mg PO DAILY PRN 03/27/14 [History Confirmed 01/06] metFORMIN* [Glucophage*] 1,000 mg PO BID 03/27/14 [History Confirmed 01/07/20] Aspirin EC TAB* [Ecotrin EC Low Dose 81 MG*] 81 mg PO DAILY 08/01/14 [History Confirmed 01/07/20] Metoprolol Tartrate TAB* [Lopressor TAB*] 50 mg PO BID 08/01/14 [History Confirmed 01/07/20] Amlodipine Besylate [Norvasc 10 mg tab] 10 mg PO DAILY 02/18/17 [History Confirmed 01/07/20] Atorvastatin* [Lipitor*] 20 mg PO 2100 02/18/17 [History Confirmed 01/07/20] Cholecalciferol (Vitamin D3) [Vitamin D] 1,000 unit PO QAM 02/18/17 [History Confirmed 01/07/20] Ferrous Sulfate TAB* 325 mg PO BID 05/02/19 [History Confirmed 01/07/20] Multivitamin [Once Daily] 1 each PO DAILY 05/02/19 [History Confirmed 01/07/20] Ramipril 10 mg PO DAILY 01/07/20 [History Confirmed 01/07/20] PMH/Surg Hx/FS Hx/Imm Hx Endocrine/Hematology History: Reports: Hx Diabetes Denies: Hx Systemic Lupus Erythematosus Cardiovascular History: Reports: Hx Angina, Hx Coronary Artery Disease, Hx Hypercholesterolemia, Hx Hypertension, Other Cardiovascular Problems/Disorders - HYPERCHOLESTEROLEMIA/HEART MURMUR/CAD/IDDM Denies: Hx Congestive Heart Failure History: Denies: Hx Dialysis, Hx Renal Disease Musculoskeletal History: Denies: Hx Rheumatoid Arthritis Sensory History: Reports: Hx Cataracts, Hx Contacts or Glasses, Hx Hearing Problem Denies: Hx Hearing Aid Opthamlomology History: Reports: Hx Cataracts, Hx Contacts or Glasses - Cancer History Cancer Type, Location and Year: colon Hx Chemotherapy: No - Immunization History Date of Tetanus Vaccine: unk Date of Influenza Vaccine: utd Infectious Disease History: Denies: Traveled Outside the [place] in Last 30 Days - Family History Known Family History: Positive: Cardiac Disease - Social History Alcohol Use: Weekly Alcohol Amount: 1-2 beers Substance Use Type: Reports: None Hx Tobacco Use: Yes Smoking Status (MU): Former Smoker Type: Cigarettes Length of Time of Smoking/Using Tobacco: 8 years Have You Smoked in the Last Year: No - Additional Comments History Additional Comments: PMHx of HTN, HLD, diabetes, CAD, afib, respiratory failure Review of Systems - ROS Summary Review of Systems Summary: Home Medications Medication Instructions Recorded Confirmed Type Hydrochlorothiazide TAB* 25 mg PO DAILY 03/27/14 05/02/19 History [Hydrodiuril TAB*] Sildenafil Citrate [Viagra] 50 mg PO DAILY PRN 03/27/14 02/18/17 History metFORMIN* [Glucophage*] 1,000 mg PO BID 03/27/14 05/02/19 History Aspirin EC TAB* [Ecotrin EC Low 81 mg PO DAILY 08/01/14 05/02/19 History Dose 81 MG*] Metoprolol Tartrate TAB* 50 mg PO BID 08/01/14 05/02/19 History [Lopressor TAB*] Amlodipine Besylate [Norvasc 10 mg 10 mg PO DAILY 02/18/17 05/02/19 History tab] Atorvastatin* [Lipitor*] 20 mg PO 2100 02/18/17 05/02/19 History Cholecalciferol (Vitamin D3) 1,000 unit PO QAM 02/18/17 05/02/19 History [Vitamin D] Ferrous Sulfate TAB* 325 mg PO BID 05/02/19 05/02/19 History Multivitamin [Once Daily] 1 each PO DAILY 05/02/19 05/02/19 History Ramipril 10 mg PO DAILY 01/07/20 01/07/20 History Eyes: Other - Impaired vision Neurological/Mental Status: Other - positive - impaired speech Negative: Weakness, Paresthesia, Numbness All Other Systems Reviewed And Are Negative: Yes Physical Exam - Summary Physical Exam Summary: General: Well-developed, Well-nourished male. No acute distress. HEENT: Normocephalic, Atraumatic. Eyes: Conjuctiva normal, PERRL. Oropharynx: Clear, mucous membranes moist, (-) exudates. Neck: Soft, FROM, (-) lymphadenopathy, (-) thyromegaly, (-) JVD. Cardiovascular: Normal sinus rhythm, (-) murmur. Lungs: Clear to auscultation bilaterally (-) wheezes, (-) rales, (-) rhonchi. Abdomen: Soft, non-tender, non-distended, (-) organomegaly, normal bowel sounds. Back: (-) CVA tenderness Extremities: No edema. Skin: Warm, dry, (-) rash. Neuro: GCS 15, NIH 5, see scales for breakdown. Psychiatric: Mood normal, affect normal. Triage Information Reviewed: Yes Vital Signs On Initial Exam: Initial Vital Signs Temp 99.5 F 01/07/20 00:22 Pulse 85 01/07/20 00:22 Resp 18 01/07/20 00:22 BP 183/93 01/07/20 00:22 Pulse Ox 96 01/07/20 00:22 Vital Signs Reviewed: Yes - Rylee Coma Scale Best Eye Response: 4 - Spontaneous Best Motor Response: 6 - Obeys Commands Best Verbal Response: 5 - Oriented Coma Scale Total: 15 Procedures - Sedation Patient Received Moderate/Deep Sedation with Procedure: No Diagnostics - Laboratory Result Diagrams: 01/07/20 00:26 01/07/20 00:26 Lab Statement: Any lab studies that have been ordered have been reviewed, and results considered in the medical decision making process. - Radiology CXR Radiology Interpretation Completed By: ED Physician Summary of Radiographic Findings: Poor inspiration, pending official report. - CT BRAIN CT CT Interpretation Completed By: Radiologist Summary of CT Findings: BRAIN CT IMPRESSION: Low-attenuation area in the left occipital lobe representing acute/subacute. infarct without any hemorrhagic transformation. Mass effect on the posterior. left lateral ventricle. THIS REPORT WAS REVIEWED BY ED PHYSICIAN. HEAD/NECK CTA CT Interpretation Completed By: Radiologist Summary of CT Findings: HEAD CTA IMPRESSION: Moderate to severe atherosclerosis with 80% luminal narrowing of the cavernous. segment of the right internal carotid artery. No aneurysm. No occlusion. THIS REPORT WAS REVIEWED BY ED PHYSICIAN. NECK CTA IMPRESSION: Severe atherosclerosis at the right carotid bulb and origin of the right. internal carotid artery resulting in about 90% focal stenosis. Distal artery is. widely patent. Severe atherosclerosis at the origin of the left external carotid artery. resulting in about 80% focal stenosis. Distal artery is patent. THIS REPORT WAS REVIEWED BY ED PHYSICIAN. - EKG 0034 Cardiac Rate: Other Rate - afib with rate of 82 BPM EKG Rhythm: Atrial Fibrillation Summary of EKG Findings: EKG showed afib with rate of 82 BPM, no STEMI. ED physician has reviewed and interpreted this EKG. 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 Facial Paresis-Pt to Smile & Close Eyes or Grimace Symmetry: Normal/Symmetrical Motor Function - Right Arm: No Drift-Holds 10 Seconds Motor Function - Left Arm: No Drift-Holds 10 Seconds Motor Function - Right Leg: No Drift-Holds 10 Seconds Motor Function - Left Leg: No Drift-Holds 10 Seconds Limb Ataxia-Must be out of Proportion to Weakness Present: Absent Sensory (Use Pinprick to Test Arms/Legs/Trunk/Face): Normal Best Language (Describe Picture, Name Items): Severe Aphasia Dysarthria (Read Several Words): Slurs Some Words Extinction and Inattention: No Abnormality Total Score: 5 NIH Stroke Scale Comment: 0030 - Initial NIH score completed. Re-Evaluation - Re-Evaluation First Eval Re-Evaluation Time: 00:55 Comment: CT report and TPA considerations were discussed. Telestroke neurologist is on another telestroke consult at this time, awaiting consult before TPA decision is made. Second Eval Re-Evaluation Time: 01:19 Comment: Neurologist recommendations were discussed, patient to be admitted. Course/Dx - Course Course Of Treatment: During ED course, patient received fluids. - Diagnoses Provider Diagnoses: CVA (cerebral vascular accident) During the Visit The Following Alert/Code Occurred: Code Singh - 2358 - initial provider evaluation; 2359 - code valdes called, patient wheeled to CT. 0025 - Radiologist communicates on phone that positive stroke observed on brain CT. 0030 - Initial NIH score completed. 0032 - Neurologist is currently on another telestroke consult, will call back. - Physician Notifications Discussed Care Of Patient With: Satinder Baltazar Time Discussed With Above Provider: 01:05 Instructed by Provider To: Other - Patient's case was discussed with Dr. Baltazar. He does not recommend TPA and states that he believes that the patient' s stroke started hours before he fell and his stroke is completed at this time. He recommends admission, increasing patient's Lipitor to 80 mg, and awaiting ten days before considering anti-coagulation therapy for the patient's afib. He also recommends keeping the patient's systolic BP below 180. 0130 - Patient's case was discussed with Dr. Wright, Dr. Wright accepts for admission. - Critical Care Time Critical Care Time: 75-104 min - 90 minutes CCT Discharge ED - Sign-Out/Discharge Documenting (check all that apply): Patient Departure - admit - Discharge Plan Condition: Fair Disposition: ADMITTED TO [facility] Referrals: Ana Rosa Chow MD [Primary Care Provider] - - Attestation Statements Document Initiated by Scribe: Yes Documenting Scribe: DARRELL CLARK Provider For Whom Scribe is Documenting (Include Credential): ITZEL BUTT MD Scribe Attestation: DARRELL Arango, scribed for ITZEL BUTT MD on 01/07/20 at 0217. Status of Scribe Document: Ready
[2020-01-07 00:35] LABS: ABS Eosinophils 0.1 10^3/ul (0-0.6); ABS Lymphocytes 1.5 10^3/ul (1.0-4.8); ABS Neutrophils 8.7 10^3/ul (1.5-7.7); Eosinophil % 0.8 %; Hematocrit 40 % (42-52); Hemoglobin 13.7 g/dL (14.0-18.0); Lymphocyte % 12.9 %; Mean Corpuscular HGB Conc 34 g/dL (31-36); Mean Corpuscular Hemoglobin 28 pg (27-31); Mean Corpuscular Volume 83 fL (80-94); Mean Platelet Volume 8.1 fL (7.4-10.4); Platelet Count 192 10^3/uL (150-450); Red Blood Count 4.84 10^6 /uL (4.18-5.48); Red Cell Distribution Width 14 % (10-15); White Blood Count 11.3 10^3/uL (3.5-10.8)
[2020-01-07 00:49] LABS: Activated Partial Thrombo Time 32.2 seconds (26.0-38.0); INR 1.1 (0.82-1.09)
[2020-01-07 00:51] LABS: ALT 8 U/L (7-52); AST 15 U/L (13-39); Albumin 4.4 g/dL (3.2-5.2); Albumin/Globulin Ratio 1.5 (1-3); Alkaline Phosphatase 69 U/L (34-104); Anion Gap 10 mmol/L (2-11); BUN/Creatinine Ratio 15.6 (8-20); Blood Urea Nitrogen 23 mg/dL (6-24); CO2 Carbon Dioxide 28 mmol/L (22-32); Calcium 10.2 mg/dL (8.6-10.3); Chloride 96 mmol/L (101-111); Cholesterol 203 mg/dL; EGFR African American 55.8 (>60); EGFR Non-African American 46.1 (>60); Globulin 2.9 g/dL (2-4); Glucose 158 mg/dL (70-100); HDL Cholesterol 28.4 mg/dL; LDL Cholesterol 137 mg/dL; Potassium 3.6 mmol/L (3.5-5.0); Sodium 134 mmol/L (135-145); Total Protein 7.3 g/dL (6.4-8.9); Triglycerides 186 mg/dL
[2020-01-07 00:55] LABS: Troponin I 0.05 ng/mL (<0.03)
[2020-01-07 01:02] LABS: Urine Appearance Clear; Urine Bilirubin Negative (Negative); Urine Blood 1+ (Negative); Urine Color Straw; Urine Glucose Negative (Negative); Urine Ketones Negative (Negative); Urine Nitrite Negative (Negative); Urine Protein Negative (Negative); Urine Specific Gravity 1.019 (1.010-1.030); Urine Urobilinogen Negative (Negative)
[2020-01-07 01:09] LABS: Urine Bacteria Absent (Absent); Urine Red Blood Cell Trace(0-2/hpf) (Absent); Urine Squamous Epithelial Cell Present (Absent); Urine White Blood Cell Trace(0-5/hpf) (Absent)
[2020-01-07] MEDS ORDERED: Ondansetron INJ* 2 MG/ML VIAL IV PRN (03:49)
[2020-01-07] MEDS ORDERED: Acetaminophen TAB* 325 MG PO PRN (03:49)
[2020-01-07] MEDS ORDERED: Dextrose 50% Syringe 50 ML* 25 GM/50 ML SYRINGE IV PUSH PRN (03:54)
[2020-01-07 05:33] LABS: ABS Neutrophils 7.6 10^3/ul (1.5-7.7); Eosinophil % 0.3 %; Hematocrit 38 % (42-52); Hemoglobin 13.1 g/dL (14.0-18.0); Lymphocyte % 18.5 %; Mean Corpuscular HGB Conc 35 g/dL (31-36); Mean Corpuscular Hemoglobin 29 pg (27-31); Mean Corpuscular Volume 82 fL (80-94); Mean Platelet Volume 8.1 fL (7.4-10.4); Platelet Count 177 10^3/uL (150-450); Red Blood Count 4.58 10^6 /uL (4.18-5.48); Red Cell Distribution Width 15 % (10-15); White Blood Count 10.7 10^3/uL (3.5-10.8)
[2020-01-07 05:38] LABS: INR 1.16 (0.82-1.09)
[2020-01-07 05:50] LABS: Anion Gap 8 mmol/L (2-11); Blood Urea Nitrogen 20 mg/dL (6-24); CO2 Carbon Dioxide 28 mmol/L (22-32); Chloride 100 mmol/L (101-111); Cholesterol 193 mg/dL; EGFR African American 62.6 (>60); EGFR Non-African American 51.7 (>60); Glucose 127 mg/dL (70-100); HDL Cholesterol 27.4 mg/dL; LDL Cholesterol 135 mg/dL; Potassium 3.6 mmol/L (3.5-5.0); Sodium 136 mmol/L (135-145); Triglycerides 153 mg/dL
[2020-01-07 05:58] LABS: Troponin I 0.06 ng/mL (<0.03)
--- NOTE | 2020-01-07 06:48 | HP ---
CC: Dr. Guidry; Dr. Powell * HISTORY AND PHYSICAL: DATE OF ADMISSION: PRIMARY CARE PROVIDER: Dr. Guidry. ATTENDING PHYSICIAN WHILE IN THE HOSPITAL: Dr. Aretha Wright * (report dictated by Denis Carlton NP). CONSULTING NEUROLOGIST: Dr. Powell. CHIEF COMPLAINT: 1. Fall. 2. Neuro deficit. HISTORY OF PRESENT ILLNESS: Mr. Jim is an 79-year-old male patient who has a history of GA, aortic stenosis, CAD, history of diabetes, and hypertension, who comes into our ER today. He is a very poor historian, he is really not able to give much history. In addition to this, the was not able to give good history as well. He apparently around 10 o'clock this evening had gotten up from his chair, he went to go to the sink and he fell. He does not recall the fall, he does not remember the ambulance being called, he does not recall what happened earlier today. He has no really good memory of what had happened. The notes that he had fallen, to her knowledge he did not bite his tongue, there was no report of loss of consciousness or seizure-like activity and no reports of urinary incontinence. She was concerned because of the fall, they were having a hard time getting him up off the floor, so she called 911. She noted that he was having trouble with his speech and she feels that he has been acting confused since Tuesday of this week. The patient states that he has not had any loss of vision and the did not notice having any trouble with weakness to one arm or the other and no facial drooping, but she did feel that his speech was off. He is having a hard time coming up with words and she is unsure when his last known normal was, presumably it was at 10 o'clock last night. However, there is question if he had symptoms previously because she notes that he was not acting himself since Tuesday. When he came into the ER, it was noted that he did have neuro deficits, a code valdes was called, telestroke was initiated. Ultimately, CT imaging did confirm an acute to subacute CVA based on CT imaging and because of this we were asked to evaluate for admission. PAST MEDICAL HISTORY: Significant for: 1. CAD. 2. Diabetes. 3. Hypertension. 4. GA. 5. Aortic stenosis. PAST SURGICAL HISTORY: He has had CABG. MEDICATIONS: Home meds according the list provided include: 1. Ramipril 10 mg p.o. daily. 2. Vitamin D 1000 units p.o. daily. 3. Lipitor 20 mg daily. 4. Aspirin 81 mg daily. 5. Amlodipine 10 mg daily. 6. Multivitamin 1 tablet daily. 7. Lopressor 50 mg p.o. b.i.d. 8. Hydrochlorothiazide 25 mg daily. 9. Ferrous sulfate 325 mg p.o. daily. 10. Viagra 50 mg daily as needed. 11. Metformin 1000 mg p.o. twice a day. ALLERGIES TO MEDICATIONS: There are no known drug allergies. FAMILY HISTORY: His mother had a stroke. Father had high blood pressure. SOCIAL HISTORY: He is a former smoker. He rarely drinks alcohol. Surrogate decision-maker is his . REVIEW OF SYSTEMS: There is no documented fever. He denies having any significant weight change. There is no rhinorrhea. No sore throat. No thyroid enlargement. He denied having any chest pain. There was no orthopnea, and there was no nocturnal dyspnea. He denied having any abdominal pain. There was no nausea, no vomiting, no dysuria, no frequency, Again, there were no reports of loss of consciousness. Review of 14 systems completed, all others negative. PHYSICAL EXAMINATION GENERAL: At this time, Mr. Jim is an 79-year-old male patient. He is sitting in the ED stretcher. He does not appear to be in any acute distress. VITAL SIGNS: Blood pressure 168/85, pulse 77, respirations 15, O2 sat 96%, temperature 99.5. HEENT: Head is atraumatic and normocephalic. Eyes: EOMs are intact. Sclerae anicteric, not pale. Throat: Oral mucosa appeared to be moist. No oropharyngeal erythema. NECK: Supple. LUNGS: Clear to auscultation. No wheezes, rales or rhonchi. HEART: Sounds S1 and S2, irregularly irregular rate. No murmurs, rubs, or gallops. ABDOMEN: Soft, flat, nontender. Bowel sounds are present. EXTREMITIES: Pulses are 2+ throughout. He had no peripheral edema. NEUROLOGIC: He is awake, he is alert, he knows his name, but he is confused to his age and month. Cranial nerves were intact. He did have some mild flattening of the right nasolabial fold and no gaze deviation appreciated. He was obeying commands at this point. Visually, he did have a hemianopia noted in the left peripheral field. He had no drift to the upper or lower extremities bilaterally. He had some dysmetria noted to finger to nose on the right. He did have some severe expressive aphasia. He did have some mild dysarthria, slurring at time and he did have some partial neglect noted, particularly of the lower extremities. He was unable to tell me when I was touching both, he could not tell me I was touching the right side. I scored his NIH stroke scale at 9. Initially, it was a 5. He had good 5/5 strength throughout distally and proximally of the lower extremities as well. No other focal deficits were seen. SKIN: Grossly intact. LABORATORY DATA: His labs today are revealing a WBC of 11.3, RBC of 4.84, hemoglobin of 13.7, hematocrit of 40, and platelet count 193. INR 1.10. PTT of 32.2. His sodium was 134, potassium 3.6, chloride 96, bicarb 28, BUN 10, __ ____ 123, creatinine of 1.47 which is near his baseline 1.3. His glucose was 158, lactic 1, calcium 10.2, total bili 1.2, AST 15, ALT 8, alk phos 69, troponin 0.05 which when looking back he has been higher in the past, albumin 4.4, LDL was 137. Urine showed 1+ blood, presence of squamous epithelial cells. He did have brain CT obtained today, impression: Low-attenuation area in the left occipital lobe representing acute to subacute infarct without any hemorrhagic transformation, mass effect on the posterior left ventricle. He had a head CT obtained today as well which showed impression: Moderate to severe atherosclerosis with 80% luminal narrowing of the cavernous segment of the right internal carotid artery. No aneurysm, no occlusion. Mild atherosclerosis of the internal cervical segment, petrous segment and moderate atherosclerosis of the cavernous segment of the left internal carotid artery. Proximal and mid left cerebral artery is unremarkable. Mild narrowing of the distal posterior cerebral artery, no occlusion, no aneurysm. Impression of the CTA of the neck: Severe atherosclerosis of the right carotid bulb and right origin of the internal carotid artery resulting in 90% focal stenosis, distal artery is widely patent, severe atherosclerosis at the origin of the left external carotid artery resulting in 80% focal stenosis, distal artery is patent. He had a chest x-ray obtained today, which did show some cardiomegaly with inspiratory film. No effusions or gross infiltrates noted. We will await official read. He did have an EKG obtained today as well. His initial EKG was difficult as he did have significant artifact, it did appear to be consistent with atrial fibrillation with a rate of 82. When you review it to his EKG from 2017, that was a normal sinus rhythm with ST-T wave changes noted. However, manuel's EKG did show the incomplete left bundle branch block, which he has had previously. He does have some LVH noted, which was noted previously. There are no T wave inversions noted. He did have some downsloping ST segments in lead I. The new finding is again the atrial fibrillation. Old medical records were reviewed. ASSESSMENT AND PLAN: Mr. Jim is an 79-year-old male patient coming into the ED today with a fall, on evaluation found to have significant neuro deficits. We were asked to evaluate for admission. He will be admitted on inpatient status for: 1. 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 Again, initial NIH stroke scale was 5; however, when I evaluated it was 9. I did touch base again with [place]. At this point, they did not recommend any further testing with the exception of an MRI in the morning and an echo. He does have signs on his neuro exam that are consistent with a INDUSTRIAL MACHINE ASSEMBLER stroke. At this point, I am going to get an MRI and echo given the size of the stroke. We will hold on any anticoagulation for the atrial fibrillation as he is at risk for hemorrhagic transformation. I would continue aspirin as recommended by Stroke Neurology at [place]. Continue with atorvastatin. We will continue with frequent neuro checks and secondary prevention. I will check an A1c in the morning given the history of diabetes and we will try to maintain an LDL less than 70. An EKG did show atrial fibrillation, which could certainly be the culprit. We are getting an MRI, neuro consult. I have ordered speech, OT and PT therapies. We will get an echo with bubble study. 2. Carotid artery disease. Again, at this point, no intervention was recommended. We will continue with secondary prevention and medical management. This may be followed closely by his primary. 3. History of coronary artery disease. I will still continue on his aspirin and statin. I am holding on beta-venecia at this point given the acute stroke. I would like to hold off because I do not want to lower his blood pressure in the setting of his carotid artery disease and the acute stroke, which could possibly extend the territory. 4. Diabetes. He will be placed on lispro sliding scale. 5. Hypertension. Continue with permissive hypertension. We will treat for systolics greater than 200 and diastolics greater than 110. 6. History of aortic stenosis. We will continue his current medical regimen. We are getting an echo. 7. History of myocardial infarction. Continue with secondary prevention. 8. DVT prophylaxis. I will place him on SCDs only. We could consider starting heparin subcu; however, given the size of the stroke, I would like to hold off. 9. Code status. Full code. 10. Fluids, electrolytes and nutrition. He did pass a bedside swallowing eval. He can have a consistent carb diet. TIME SPENT: Time spent on the admission was 60 minutes, greater than half the time was spent [id number] with the patient obtaining my history of physical. I discussed the plan of care with my attending, Dr. Wright; she is in agreement. DENIS CARLTON, RAYMUNDO [id number]/CPS #: [id number] MTDD
[2020-01-07] MEDS: Insulin LISPRO* 1 UNITS UNIT SUBCUT SCH ×3 (07:30→17:11)
[2020-01-07] MEDS ORDERED: Metoprolol Tartrate TAB* 25 MG PO SCH (09:00)
[2020-01-07] MEDS: Aspirin 81 mg CHEW TAB* 81 MG TAB.CHEW PO SCH (09:22)
[2020-01-07 09:26] LABS: Troponin I 0.05 ng/mL (<0.03)
--- NOTE | 2020-01-07 11:03 | PN ---
Subjective Date of Service: 01/07/20 Interval History: States he is having a tough time dealing with going from being independent in all activities to needing help. Nursing noticed a large deficit in his vision. Unable to see clear features from any angle unless they are right in front of his face. Denies lightheadedness, dizziness, abdominal pain, nausea, vomiting, issues moving bowel or bladder. Family History: Unchanged from Admission Social History: Unchanged from Admission Past Medical History: Unchanged from Admission Objective Active Medications: Acetaminophen (Tylenol Tab*) 650 mg PO Q4H PRN PRN Reason: PAIN - MILD Aspirin (Aspirin 81 Mg Chew Tab*) 81 mg PO DAILY [facility] Last Admin: 01/07/20 09:22 Dose: 81 mg Atorvastatin Calcium (Lipitor*) 80 mg PO 1700 SHAUNNA Dextrose (D50w Syringe 50 Ml*) 12.5 gm IV PUSH .FOR FS < 60 - SS PRN PRN Reason: FS < 60 Insulin Human Lispro (Humalog*) 0 units SUBCUT AC [facility]; Protocol Last Admin: 01/07/20 07:30 Dose: Not Given Metoprolol Tartrate (Lopressor Tab*) 12.5 mg PO BID [facility] Last Admin: 01/07/20 09:22 Dose: 12.5 mg Ondansetron HCl (Zofran Inj*) 4 mg IV Q6H PRN PRN Reason: NAUSEA Vital Signs - 8 hr 01/07/20 01/07/20 01/07/20 03:00 03:28 03:59 Temperature Pulse Rate 87 Respiratory 17 17 22 Rate Blood Pressure 163/91 165/90 (mmHg) O2 Sat by Pulse 84 Oximetry 01/07/20 01/07/20 01/07/20 04:00 04:50 04:53 Temperature 98.1 F 99.5 F Pulse Rate 74 72 Respiratory 19 19 19 Rate Blood Pressure 155/71 165/90 (mmHg) O2 Sat by Pulse 96 98 Oximetry 01/07/20 01/07/20 07:30 08:09 Temperature 98.0 F Pulse Rate 115 Respiratory 16 16 Rate Blood Pressure 137/71 (mmHg) O2 Sat by Pulse 97 Oximetry Oxygen Devices in Use Now: None Appearance: This is a well developed older gentleman seen sittin gu pin a chair , no acute distress noted. Eyes: No Scleral Icterus, PERRLA Ears/Nose/Mouth/Throat: Clear Oropharnyx, Mucous Membranes Moist, - - Tongue deviates to right , slight left sided facial droop. Neck: NL Appearance and Movements; NL JVP, Trachea Midline Respiratory: Symmetrical Chest Expansion and Respiratory Effort, Clear to Auscultation Cardiovascular: NL Sounds; No Murmurs; No JVD, No Edema, - - Irregular HR. Afib on monitor. Abdominal: NL Sounds; No Tenderness; No Distention Lymphatic: No Cervical Adenopathy Extremities: No Edema, No Clubbing, Cyanosis Skin: No Rash or Ulcers, No Nodules or Sclerosis Neurological: Alert and Oriented x 3 Lines/Tubes/Other Access: Clean, Dry and Intact Peripheral IV Result Diagrams: 01/07/20 05:26 01/07/20 05:26 Assess/Plan/Problems-Billing Assessment: This is an 79 year old male with a PMH of DM, CAD, HTN who was admitted on for CVA involving left QUANTITATIVE MANAGER territory and right parietal lobe. - Patient Problems (1) CVA (cerebral vascular accident) Current Visit: Yes Status: Acute Code(s): I63.9 - CEREBRAL INFARCTION, UNSPECIFIED SNOMED Code(s): 440576967 Comment: - MRI showed involvement of left QUANTITATIVE MANAGER territory and right parietal lobe, possibly due to watershed infarct from severely stenosed bilateral carotids. - Resulted in fall at home. - Has cortical blindness bilaterally. Left arm weakness, right leg weakness. - PT/OT/ST. Will require KARLA. -Neurocheck Q4H. - Started on atorvastatin and ASA. Will wait to order plavix and AC until after follow up CT on 01/17/20 to rule out hemorrhagic stroke, as per Dr. Simmons. (2) Aortic stenosis Current Visit: Yes Status: Acute Code(s): I35.0 - NONRHEUMATIC AORTIC (VALVE ) STENOSIS SNOMED Code(s): 90291107 Comment: -Echo is largely unchanged from previous echo in 2017. EF 50-55% with hypokinesis to inferolateral wall. Will continue metoprolol. (3) Atrial fibrillation Current Visit: Yes Status: Acute Code(s): I48.91 - UNSPECIFIED ATRIAL FIBRILLATION SNOMED Code(s): 15524829 Comment: -Newly diagnosed on this admission. Unclear as to whether or not this contributed to his CVA. -Continued his home metoprolol dosing, though converted it to succinate from tartrate. -CHADSVASC2 score of 7=11.2% change of stroke. -HASBLED score of 4=8.9% of risk. -Will hold off on AC until a repeat CT scan is performed on 01/17/20 to rule out a hemorrhagic CVA. (4) CAD (coronary artery disease) Current Visit: No Status: Chronic Priority: Medium Code(s): I25.10 - ATHSCL HEART DISEASE OF [place] CORONARY ARTERY W/O ANG PCTRS SNOMED Code(s): 10621775 Comment: -Was not on ASA prior to arrival, unsure as to why. Started on baby aspirin this admission, which he should continue. (5) Diabetes mellitus, type 2 Current Visit: No Status: Chronic Priority: Medium Comment: -Metformin on hold until 01/09/20 due to having received imaging contrast. -Fingersticks AC with sliding scale lispro. Sugars have been below 180, which is the goal. (6) Hyperlipemia Current Visit: No Status: Chronic Priority: Medium Code(s): E78.5 - HYPERLIPIDEMIA, UNSPECIFIED SNOMED Code(s): 47340938 Comment: -LDL goal of less than 70. Started on high intensity statin. (7) Hypertension Current Visit: No Status: Chronic Priority: Medium Code(s): I10 - ESSENTIAL (PRIMARY) HYPERTENSION SNOMED Code(s): 60696859 Comment: -Allow for permissive HTN with SBP goal between 130-180 for the next 24-48 hours. -Bolused with 1L NS over two hours to increase his pressures from the 120's. (8) DVT prophylaxis Current Visit: Yes Status: Acute Code(s): Z29.9 - ENCOUNTER FOR PROPHYLACTIC MEASURES, UNSPECIFIED SNOMED Code(s): 878739287 Comment: -SCD's. AC contraindicated until follow up CT scan. (9) Full code status Current Visit: Yes Status: Acute Code(s): Z78.9 - OTHER SPECIFIED HEALTH STATUS SNOMED Code(s): 211594509 Status and Disposition: Condition: Guarded Dispo: Admit inpatient to . Attending: Rufino Mason
[2020-01-07] MEDS ORDERED: Perflutren Lipid Microsphere* 3 ML VIAL ONE (11:55)
[2020-01-07] MEDS: Metoprolol Succinate XL TAB* 100 MG PO SCH (13:51)
--- NOTE | 2020-01-07 14:05 | CONSULT ---
Consult Consult: Neurology Inpatient Consult Note Reason for consult: Neurology was consulted by Deins Carlton for stroke. The history was obtained by the patient and his spouse at bedside. The patient was evaluated by the TELESTROKE today. Chief complaint: Fall, word finding difficulty. 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 According to his , the patient began acting differently on Tuesday01/04/2020 at 2130. He was asked to turn the bedroom lights off but he couldn't find the light switch. He slept the majority of the day on Tuesday because he had trouble sleeping on Tuesday evening. He then had a fall on Tuesday01/06/2020 that triggered this hospitalization. The patient was standing from a seated position when he suddenly fell. He did not lose consciousness or hit his head. He doesn't usually fall. EMS was contacted as he was having trouble standing. This was associated with word-finding difficulty. Today, the patient denied any headaches, focal weakness, or paresthesia. He denied any swallowing difficulty. Labs, Imaging and Other Diagnostics: Cholesterol: 193 LDL: 135 - CT head without contrast 01/06 personally reviewed. low attenuation area in the left occipital lobe representing acute to subacute infarct without any hemorrhagic transformation. - CTA head and neck 01/07/2020: moderate to severe atherosclerosis with 80% luminal narrowing of the cavernous segment of the right ICA. Severe atherosclerosis at the right carotid bulb and origin of the right ICA resulting in 90% focal stneosis. DIstal artery is widely patent. Severe atherosclerosis of the origin of the left ECA resulting in 80% stenosis. - MRI brain without contrast: restricted diffusion noted within the right parietal lobe, including the postcentral gyrus, as well as the majority of the left SUPERVISOR GRAPHITE territory. - EKG: atrial fibrillation - TTE: pending Past Medical History: CAD, DMII, hypertension, aortic stenosis, Past Surgical History: CABG Family History: Mother had a stroke in the past. Social History: . He lives with his . He was recently chopping wood and enjoys working outdoors. He is a former smoker. He denied any alcohol use. Hydrochlorothiazide TAB* [Hydrodiuril TAB*] 25 mg PO DAILY 03/27/14 [History Confirmed 01/07/20] Sildenafil Citrate [Viagra] 50 mg PO DAILY PRN 03/27/14 [History Confirmed 01/06] metFORMIN* [Glucophage*] 1,000 mg PO BID 03/27/14 [History Confirmed 01/07/20] Aspirin EC TAB* [Ecotrin EC Low Dose 81 MG*] 81 mg PO DAILY 08/01/14 [History Confirmed 01/07/20] Metoprolol Tartrate TAB* [Lopressor TAB*] 50 mg PO BID 08/01/14 [History Confirmed 01/07/20] Amlodipine Besylate [Norvasc 10 mg tab] 10 mg PO DAILY 02/18/17 [History Confirmed 01/07/20] Atorvastatin* [Lipitor*] 20 mg PO 2100 02/18/17 [History Confirmed 01/07/20] Cholecalciferol (Vitamin D3) [Vitamin D] 1,000 unit PO QAM 02/18/17 [History Confirmed 01/07/20] Ferrous Sulfate TAB* 325 mg PO BID 05/02/19 [History Confirmed 01/07/20] Multivitamin [Once Daily] 1 each PO DAILY 05/02/19 [History Confirmed 01/07/20] Ramipril 10 mg PO DAILY 01/07/20 [History Confirmed 01/07/20] Allergies No Known Allergies Allergy (Verified 01/07/20 00:25) Review of Systems: A 14-point ROS was obtained and otherwise negative except for what was mentioned in the HPI. Physical Exam: Vital Signs - 12 hr Temp Pulse Resp BP Pulse Ox 01/07/20 08:09 98.0 F 115 16 137/71 97 01/07/20 07:30 16 01/07/20 04:53 99.5 F 72 19 165/90 98 01/07/20 04:50 98.1 F 74 19 155/71 96 01/07/20 04:00 19 01/07/20 03:59 22 165/90 01/07/20 03:28 17 163/91 01/07/20 03:00 87 17 84 01/07/20 02:58 76 19 156/87 93 01/07/20 02:28 73 16 134/100 93 01/07/20 02:00 78 16 96 01/07/20 01:59 78 17 151/85 97 NIHSS: 10. 1 Partial gaze palsy, 2 complete hemianopsia, 1 facial palsy, 2 limb ataxia, 1 Mild-moderate aphasia, 1 Mild moderate dysarthria, 2 hemiinattention. General: Ill appearing male in no distress. Very pleasant appearing. Head: normocephalic, without obvious abnormality Eyes: conjunctivae/corneas clear Neck: supple, symmetrical. No carotid bruit. No lymphadenopathy. Lungs: clear to auscultation bilaterally, non-labored CV: irregular rhythm and rate Extremities: normal range of motion with no cyanosis. Skin: no skin lesions or lacerations Psych: affect-broad and normal mood. Easy to establish rapport. Neurological examination: Mental status: awake; alert and oriented to person, place, time, & general circumstances; moderate expressive aphasia. Cranial nerves: I: not tested II, III, IV, : cortical blindness with right and left homonomous hemianopsia with a small window on the left lateral visual field that has not been entirely effected. The patient has a great deal of neglect on the left so he points to the right when the hand is not even moving at the time. V //: sensation is intact on forehead, cheeks, and jaw region VII: right facial droop VIII: able to hear throughout the history process IX & X: symmetric palatal elevation XI: normal strength against resistance XII: tongue is symmetrical & midline with no atrophy or fasciculations Motor (R/L): no abnormal movements, no pronator drift. Normal bulk and tone throughout. No fasciculations. Neck extension 5. Shoulder ROM is full. Shoulder abduction 5/5. Elbow flexion 5/5, extension 5/5. Wrist flexion 5/5, extension 5/5. Finger flexion 5/5, extension 5/5, abduction 5/5. Hip flexion 5/5, abduction 5/5. Knee flexion 5/5, extension 5/5. Ankle dorsiflexion 5/5, plantarflexion 5/5. Reflexes R L Brachioradialis 2+ 2+ Biceps 2+ 2+ Triceps 2+ 2+ Patella 1 1 Ankle trace trace Plantar extensor extensor Sensation is intact to light touch throughout. Coordination: finger to nose dysmetria on the right. Gait & Station: wide based gait. Required one person assist. Assessment: 1. Acute large multifocal embolic strokes involving the left SUPERVISOR GRAPHITE and right MCA- SUPERVISOR GRAPHITE vascular distribution. Mechanism: cardio emboli in the setting of atrial fibrillation. This explains his cortical blindness and right hemineglect. He had symptoms since Tuesday evening, thus was outside the window for alteplase therapy. He doesn't have any evidence of large vessel occlusion but has extensive intra and extracranial vascular disease. The patient's examination is notable for moderate aphasia, right and left disorientation, neglect towards the left, visual and tactile extinction on the left, cortical blindness involving both sides, but mostly on the left lower quadrant explained by the right parietal stroke. 2. New onset atrial fibrillation 3. Severe right ICA stenosis at the carotid bulb and cavernous portion. This would explain the watershed infarction in the right MCA-SUPERVISOR GRAPHITE vascular distribution. Right carotid surgery would not be as effective in this case since has both extracranial (proximal) and intracranial (distal) stenosis. A cardioembolic stroke cannot be entirely excluded. 4. 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 Recommendations: - Aspirin 81 mg daily. He will need anticoagulation therapy for new onset atrial fibrillation, but we should waiting at least 10 days given his risk of hemorrhagic transformation of the large infarctions. - Repeat CT head without contrast on 01/17/2020. If negative for hemorrhage, we can start Eliquis. Defer exact dosing to the primary team. - Neuro checks every 4 hours - Atorvastatin 80 mg nightly. - PT/OT/RN TRAUMA evaluation and treatment. He will need acute stroke rehabilitation. - Pending TTE with bubble study - Allow permissive hypertension with SBP slowly reduced to a range of 130-<180 mmHg the next 24-48 hours. - Fall precautions. - He cannot operate any heavy machinery due to his cortical blindness - He is at risk of having post-stroke depression and seizures. Hold off on any prophylactic anti-depressants or anti-seizure medications for now. - VTE prophylaxis: SCDs Neurology will continue to follow. Discussed the above recommendations with Aarti from PT. Puma Simmons MD Date: 01/07/2020 Time: 13:53
--- NOTE | 2020-01-07 14:35 | ECHO ---
*[facility]* [place] [address] Fax #: [phone] Transthoracic Echocardiogram Patient: Kunal Jim : 1940 Study Date: 01/07/2020 Age: 79 Gender: M HR: 66 bpm Height: 68 in /172.7 cm BSA: 1.93 m^2 Weight: 174.6 lb /79.4 kg BMI: 26.6 kg/m^2 *Car Wiper: * Mariangel Pradhan *Referring Physician: * Denis CarltonReading Physician: * Daniel Sanches MD Indications: CVA. History: Atrial fibrillation. Coronary artery disease. Aortic stenosis. Risk factors: Hypertension. Diabetes mellitus. Conclusions Summary: - Impressions: No previous study was available for comparison. - Left ventricle: Systolic function is at the lower limits of normal. The estimated ejection fraction is 50-55%. Hypokinesis of the inferolateral myocardium. - Right ventricle: Systolic function is normal. - Atrial septum: No defect or patent foramen ovale is identified. Bubble study was negative - Mitral valve: There is no evidence of stenosis. There is mild regurgitation. - Aortic valve: The valve is probably trileaflet. The leaflets are moderately thickened. The findings are consistent with moderate stenosis. There is no significant regurgitation. - Tricuspid valve: There is trace to mild regurgitation. - Pulmonary arteries: Systolic pressure can not be accurately estimated. - Compared to study of 02/18/17, there is no significant change. Study data: Transthoracic echocardiogram. Procedure: Transthoracic echocardiography was performed. Image quality was suboptimal. Intravenous Definity , 2 mlswas administered. A bubble study was performed. Complete 2D, spectral Doppler, and color flow Doppler. Location: Bedside. Patient status: Inpatient. Patient room number: 444-02. Rhythm: Atrial fibrillation. Findings Left ventricle: The cavity size is normal. Wall thickness is moderately increased. Systolic function is at the lower limits of normal. The estimated ejection fraction is 50-55%. Regional wall motion abnormalities: Hypokinesis of the inferior myocardium. Hypokinesis of the inferolateral myocardium. Left ventricular diastolic function parameters are indeterminate. Right ventricle: Not well visualized. The cavity size is at the upper limits of normal. Wall thickness is normal. Systolic function is normal. Ventricular septum: The ventricular septum is normal. Left atrium: The atrium is mildly dilated. Right atrium: The atrium is mildly dilated. Atrial septum: No defect or patent foramen ovale is identified. Bubble study was negative Mitral valve: Appears moderately calcified. No echocardiographic evidence for prolapse. There is no evidence of stenosis. There is mild regurgitation. Aortic valve: The valve is probably trileaflet. The leaflets are moderately thickened. The findings are consistent with moderate stenosis. There is no significant regurgitation. Tricuspid valve: The valve is structurally normal. There is no evidence of stenosis. There is trace to mild regurgitation. Pulmonic valve: The valve is structurally normal. There is no evidence of stenosis. There is trace regurgitation. Aorta: The aortic root appears normal. Pericardium: There is no significant pericardial effusion. Pulmonary arteries: Systolic pressure can not be accurately estimated. Systemic veins: Inferior vena cava: The vessel is normal in size. There is (>= 50%) respiratory change in the IVC dimension. Pulmonary veins: Not well visualized. Measurements Left ventricle Value Ref Right atrium continued Value Ref MAC, LAX (L) 3.3 cm 4.2 - 5.8 ML dim, ES, A4C 3.9 cm 2.6 - 4.4 ESD, LAX 2.7 cm 2.5 - 4.0 SI dim, ES, A4C (H) 6.6 cm 3.4 - 5.3 FS, LAX (L) 17 % 25 - 43 PW, ED, LAX (H) 1.6 cm 0.6 - 1.0 Aortic valve Value Ref Qs 1 L/min Peak v, S 2.17 m/sec --------- E', lat yojana, TDI (L) 8.7 cm/sec >=10.0 VTI, S 48.9 cm - -------- E/e', lat yojana, 16 Mean grad, S 12.0 mm Hg ---- ----- TDI Peak grad, S 19.0 mm Hg --------- COURTNEY, VTI 0.85 cm^2 --------- LVOT Value Ref COURTNEY, Vmax 0.85 cm^2 --------- Diam, S 2.00 cm Area 3.1 cm^2 Mitral valve Value Ref Peak dejon, S 0.59 m/sec Peak E 1.43 m/sec --------- Mean grad, S 1 mm Hg Peak A 0 m/sec --------- SV 35 ml Decel time 227 ms --------- Peak grad, D 8.2 mm Hg --------- Ventricular septum Value Ref Peak E/A ratio 476.7 --------- IVS, ED (H) 1.9 cm 0.6 - 1.0 Pulmonic valve Value Ref Right ventricle Value Ref Peak v, S 0.95 m/sec --------- MAC, LAX 2.9 cm Peak grad, S 4.0 mm Hg --------- MAC minor ax, (H) 4.1 cm 1.9 - 3.5 A4C mid Aortic root Value Ref Root diam 3.2 cm <4.1 Left atrium Value Ref AP dim, ES (H) 5.40 cm 3.00 - Ascending aorta Value Ref 4.00 AAo AP diam, S 2.8 cm --------- ML dim, A4C 6.0 cm SI dim, A4C 7.6 cm Inferior vena cava Value Ref Vol/bsa, ES, 1-p (H) 63 ml/m^2 12 - 37 Diam 2.7 cm --------- A4C Right atrium Value Ref SI dim, ES (H) 6.6 cm 3.4 - 5.3 Legend: (L) and (H) pj values outside specified reference range. Prepared and electronically signed by Daniel Sanches MD 01/07/2020 14:34
[2020-01-07] MEDS ORDERED: Atorvastatin* 80 MG TAB PO SCH (17:00)
[2020-01-07] MEDS ORDERED: NS 0.9% 1000 ML** 1,000 ML IV ONE ×2 (17:52)
[2020-01-08] MEDS: Insulin LISPRO* 1 UNITS UNIT SUBCUT SCH ×2 (08:30→12:34)
[2020-01-08] MEDS: Metoprolol Succinate XL TAB* 100 MG PO SCH (08:34)
[2020-01-08] MEDS: Aspirin 81 mg CHEW TAB* 81 MG TAB.CHEW PO SCH (08:35)
[2020-01-08 09:40] VITALS: BP 170/69
--- NOTE | 2020-01-08 14:24 | DS ---
CC: Dr. Mason; Dr. Guidry* DISCHARGE SUMMARY: DATE OF ADMISSION: 01/07/20 DATE OF DISCHARGE: 01/08/20 PROVIDER: Yareli Belle NP ATTENDING PHYSICIAN: Dr. Mason* (dictated by Yareli Belle NP). PRIMARY CARE PROVIDER: Dr. Guidry. CONSULTING PHYSICIANS: Dr. Powell and Dr. Simmons. PRIMARY DIAGNOSES: 1. New onset atrial fibrillation. 2. Cerebrovascular accidents involving right parietal lobe, postcentral gyrus and the majority of the left posterior cerebral artery territory. 3. Bilateral carotid stenosis. SECONDARY DIAGNOSES: 1. Coronary artery disease. 2. Diabetes. 3. Hypertension. 4. Myocardial infarction. PROCEDURES: None. DIAGNOSTIC STUDIES/LAB DATA: 1. CT of the brain without contrast on 01/07/20 at 4:10 in the morning showed acute/subacute left occipital infarct without any hemorrhagic transformation, mass effect on the posterior left lateral ventricle. Findings are essentially stable from prior examination to moderate volume loss and small vessel ischemic changes. 2. CTA of the head and neck on 01/07/20, showed severe atherosclerosis in the right carotid bulb and origin of the right internal carotid artery resulting in about 90% focal stenosis and distal artery is widely patent, and severe atherosclerosis of the origin of the left external carotid artery resulting in about 80% focal stenosis and distal artery is patent. 3. MRI of the brain without contrast on 01/07/20, showed restricted diffusion noted within the right parietal lobe including the postcentral gyrus as well as the majority of the left PHOTOCOPIER TECHNICIAN territory consistent with subacute infarct. There is susceptibility artifact consistent with cortical laminar necrosis without macroscopic blood. 4. Chest x-ray on 01/07/20, showed no active cardiopulmonary disease. 5. CT of the brain on 01/07/20 at midnight showed low-attenuation area in the left occipital lobe representing acute/subacute infarct without any hemorrhagic transformation, mass effect on the posterior left lateral ventricle. Pertinent lab data: Hemoglobin 13.1, hematocrit 38, hemoglobin A1c 5.9. Troponin 0.05. Triglycerides 153, cholesterol 193, LDL cholesterol 135, HDL cholesterol 27.4. HISTORY OF PRESENT ILLNESS/HOSPITAL COURSE: This is an 79-year-old male with a past medical history significant for OK, coronary artery disease, diabetes, and hypertension, who presented to the emergency room on 01/07/20, for fall and neurologic deficit. Prior to his arrival to the emergency room, he had gotten up from his chair, went to the sink and fell, and did not lose consciousness, and had no seizure-like activity. No urinary incontinence. He was having trouble with his speech and had been acting confused since the previous Tuesday, and due to his inability to get up off the floor and EMS was called. In the emergency room, CTA of head and neck and brain CT was performed. Labs were drawn. Initially, he scored a 5 on the NIH stroke scale, however, when it was performed again by the hospitalist, the NIH stroke scale was at 9. Dr. Powell was consulted and brain MRI was ordered. Prior to the MRI completion on , he was noted to have not only right-sided facial droop and right leg weakness. He also was having left arm weakness. Initially, the CT scan only showed involvement of the left PHOTOCOPIER TECHNICIAN, however, when the MRI was performed around midday yesterday it also showed right right parietal involvement. He was also experiencing cortical blindness and difficulty extending features and reaching for things that are in front of him. His passed his swallow eval and is able to eat and drink without any difficulty. He does have moderate aphasia , right and left disorientation and right-sided hemineglect. He was placed on 81 mg of aspirin daily, however, the decision was made to hold off of any anticoagulation or antiplatelet therapy, or any additional antiplatelet therapy to repeat his CT scan in 10 days to ensure that there was no hemorrhagic transformation of his large infarcts. An EKG that was performed in the emergency room also showed atrial fibrillation, which is new to this patient. It is possible that this contributed to his strokes, however, his CTA also showed severe stenosis of bilateral carotid arteries for which he is not a good candidate for an endarterectomy. It is likely that he is having a watershed effect from the stenosis. Yesterday, his blood pressures were kept above 130 and he was evaluated by Physical Therapy and Occupational Therapy, and was moving relatively well though needed guidance. Today, he is still experiencing cortical blindness, but appears to be more coordinated when reaching for things. His left arm weakness has resolved though still has right-sided facial droop and tongue deviation and his right leg appears to be stronger than it was yesterday. His vital signs are stable and he is motivated to move forward with his physical therapy. REVIEW OF SYSTEMS: A 12-point system review was performed, which was positive for blindness to items in front of his face and to some degree in the periphery bilaterally. He denies any lightheadedness, dizziness, chest pain, palpitations , shortness of breath, abdominal pain, nausea, vomiting, issues moving his bowels or bladder. PHYSICAL EXAMINATION: Vital Signs: 99.5 Fahrenheit, 62 pulse, 20 respirations , 97% oxygen on room air, and 170/69 blood pressure. General: This is a well- developed older gentleman, seen sitting in the chair, in no acute distress. HEENT: Conjunctivae pink and moist. PERRLA. EOMs intact. Oropharynx clear. Neck is supple. Cardiac: Heart rate irregular. No murmurs, gallops or rubs appreciated. Respiratory: Lung sounds clear throughout bilaterally on room air. No accessory muscle use noted. Abdomen: Soft, nontender, nondistended with positive bowel sounds x4. Musculoskeletal: No clubbing or cyanosis of the digits. He will move all extremities. No lower extremity edema. Neurologic: Sensation intact to light touch. Right-sided facial droop tongue deviates to the right. Hand grasps are equal. Strength is equal to bilateral upper and lower extremities though has persistent cortical blindness particularly centrally and to some degree in the periphery. Skin, which is intact with no rashes or lesions. Psych: He is alert and oriented x4. Thought content organized, however, does have some degree of expressive aphasia. DISCHARGE PLAN: He is to be discharged to the rehab unit with a consistent carb diet. No activity restrictions though should continue PT/OT and speech therapy. PLAN FOR EACH CONDITION: 1. Multifocal CVA involving right parietal lobe, postcentral gyrus, and left PHOTOCOPIER TECHNICIAN. He is to continue with PT/OT and speech therapy as well as supportive care. He is at risk for post CVA depression, however, do not feel necessary to start him on any antidepressants or seizure medicines at this time and Dr. Simmons agrees with this assessment. He should continue with NephroCheck q. shift. The plan is for him to have a repeat CT of head without contrast on to evaluate for hemorrhagic transformation. After that point, if there is none, then Eliquis may be started at 75 mg along with his aspirin. 2. Hyperlipidemia. His LDL cholesterol goal is to below 70, so he was started on 80 mg atorvastatin nightly. He should be reassessed for myalgias. 3. New onset atrial fibrillation. He has remained rate controlled on metoprolol succinate 100 mg p.o. daily. At this time, anticoagulation is contraindicated until followup CT scan at which time as it is negative for any hemorrhaging. He should on apixaban 5 mg p.o. b.i.d. 4. Bilateral carotid stenosis. Upon discharge from [facility], he should be referred to vascular surgeon to evaluate the ability to undergo an endarterectomy. He does not appear to be a good candidate, however, there is a concern that he will have subsequent strokes even with antiplatelet therapy. 5. Hypertension. During his stay, we allowed for permissive hypertension secondary to the CVAs. Initially, his home medication of amlodipine and hydrochlorothiazide were held due to blood pressures creeping up back into the 170s. I recommend starting him back on ramipril 10 mg p.o. daily as well as metoprolol though continue to hold hydrochlorothiazide until he demonstrates further need. 6. Diabetes type 2. His hemoglobin A1c is 5.9, so he is well within his goal of 8%. His metformin typically at home was 1000 mg p.o. b.i.d. and may be possible to even scale back further on that as he does not need to be as low as 5.9. I recommend metformin 500 mg p.o. b.i.d. 7. Coronary artery disease. We are going to continue baby aspirin. DISCHARGE MEDICATIONS: New medications upon discharge: 1. Metoprolol succinate 100 mg p.o. daily. 2. Aspirin 81 mg p.o. daily. 3. Atorvastatin 80 mg p.o. daily. Medications to continue upon discharge: 1. Cholecalciferol 1000 units p.o. q.a.m. 2. Ferrous sulfate 325 mg p.o. daily. 3. Metformin 500 mg p.o. b.i.d. 4. Multivitamin 1 tab p.o. daily. 5. Ramipril 10 mg p.o. daily. CONDITION UPON DISCHARGE: Stable. DISPOSITION: Discharge to [facility]. TIME SPENT: Time spent on the patient is about 40 minutes with 20 minutes of that spent [id number]. Yareli Belle, CAMP DIRECTOR [id number]/[id number] #: [id number] MARY
[2020-01-09] MEDS ORDERED: Ramipril CAP* 10 MG PO SCH (09:00)
== END 2020-01-08 13:20 | DRG 308 ==
LOC: ED 23:59 → MEDTELE 01-07 03:45
PROVIDERS: ADMIT Internal Medicine; ATTEND Internal Medicine
DX: I48.91 Unspecified atrial fibrillation (principal); I63.432 Cerebral infarction due to embolism of left posterior cerebral artery; I63.411 Cerebral infarction due to embolism of right middle cerebral artery; R47.01 Aphasia; R29.810 Facial weakness; G83.11 Monoplegia of lower limb affecting right dominant side; H54.7 Unspecified visual loss; E78.5 Hyperlipidemia, unspecified; I65.23 Occlusion and stenosis of bilateral carotid arteries; I10 Essential (primary) hypertension; R29.705 NIHSS score 5; E11.9 Type 2 diabetes mellitus without complications; I25.10 Atherosclerotic heart disease of native coronary artery without angina pectoris; I35.0 Nonrheumatic aortic (valve) stenosis; I44.7 Left bundle-branch block, unspecified; W18.30XA Fall on same level, unspecified, initial encounter; I25.2 Old myocardial infarction; Z95.1 Presence of aortocoronary bypass graft; Z79.84 Long term (current) use of oral hypoglycemic drugs; Z79.82 Long term (current) use of aspirin; Z79.899 Other long term (current) drug therapy; Z82.3 Family history of stroke; Z82.49 Family history of ischemic heart disease and other diseases of the circulatory system; Z87.891 Personal history of nicotine dependence; Y92.002 Bathroom of unspecified non-institutional (private) residence as the place of occurrence of the external cause
CPT/HCPCS: 36415; 70450; 70496; 70498; 70551; 71045; 80048; 80053; 80061; 81003; 81015; 83036; 83605; 84484; 85025; 85610; 85730; 87086; 93005; 93306; 99284; A9270-GY; C8929

== ENCOUNTER 2020-01-08 10:38 | Inpatient (IN) | payer MEDICARE ==
[2020-01-08] MEDS ORDERED: Acetaminophen TAB* 325 MG PO PRN (16:15)
[2020-01-08] MEDS ORDERED: Magnesium Hydroxide LIQ* 30 ML UDC PO PRN (16:15)
[2020-01-08] MEDS ORDERED: Dextrose 50% Syringe 50 ML* 25 GM/50 ML SYRINGE IV PUSH PRN (16:20)
[2020-01-08] MEDS: Insulin LISPRO* 1 UNITS UNIT SUBCUT SCH ×2 (17:33→20:45)
[2020-01-08] MEDS: Atorvastatin* 80 MG TAB PO SCH (18:07)
[2020-01-08] MEDS: Docusate CAP* 100 MG PO SCH (20:45)
--- NOTE | 2020-01-08 21:00 | HP ---
ADMISSION HISTORY AND PHYSICAL: DATE OF ADMISSION: 01/08/20 REASON FOR ADMISSION: Multiple embolic CVAs; atrial fibrillation. HISTORY OF PRESENT ILLNESS: Kunal Jim is an 79-year-old male. He has a medical history significant for myocardial infarct in the past as well as coronary artery disease and diabetes. He normally treats his diabetes with metformin 1000 mg twice a day. The patient starting around 01/05/20 was having intermittent difficulties moving, although they seemed to get better, so the did not make much of it. On 01/06/20, the patient was at the sink and he fell over. She was unable to get him up off the floor. She called a neighbor, who came over to help. The neighbor helped her get him into a chair and recommended calling 911. He was brought to the emergency room. He was felt to have neurologic deficits and a code valdes was called. The patient had a CAT scan of his brain that seemed to suggest he had a left occipital stroke that was acute to subacute without hemorrhagic transformation. He was evaluated by Dr. Simmons via telestroke. He was felt to be outside the window for tPA. He had an MRI of the brain done without contrast, which showed restricted diffusion within the right parietal lobe including the postcentral gyrus as well as the majority of the left HAMMER SMITH territory. He was also noted to have new- onset atrial fibrillation. Dr. Simmons recommended putting him on an aspirin a day and then on 01/17/20 having a repeat CAT scan of his head without contrast. If the CAT scan is negative, to start Eliquis. He was also started on Lipitor 80 mg daily and he was put on an aspirin 81 mg daily. The patient was felt to have physical therapy, occupational therapy, and speech therapy needs. He is now being admitted for inpatient rehab so that he might return to independent living. PAST MEDICAL HISTORY: Significant for the aforementioned diabetes. He has a history of coronary artery disease, has had a myocardial infarct in the past. He has a history of aortic stenosis as well. He had no previous history of atrial fibrillation prior to this admission. CURRENT MEDICATIONS: Include: 1. Aspirin 81 mg daily. 2. Lipitor 80 mg daily. 3. He is on Colace and Senokot. 4. Lispro insulin sliding scale coverage. 5. Toprol-XL 100 mg daily. 6. Altace 10 mg daily. ALLERGIES: No known drug allergies. FAMILY HISTORY: Noncontributory. SOCIAL HISTORY: He is a nonsmoker, nondrinker. Lives with his in a ranch style house with 6 steps to enter. She is home full-time. REVIEW OF SYSTEMS: The patient reports no current shortness of breath or chest pain. PHYSICAL EXAMINATION VITAL SIGNS: The patient's temperature is 98.3, blood pressure is 158/72, pulse is 82, respirations 20. HEENT: His extraocular movements appeared to be intact. He seems to have a decrease in his peripheral vision both to the left and to the right. LUNGS: Sounded clear to auscultation bilaterally. HEART: Sounds were irregularly irregular. S1 and S2 are audible. There was a grade 2/6 systolic murmur. ABDOMEN: Soft and nontender. EXTREMITIES: Showed normal muscle bulk and tone. Peripheral pulses were intact. NEUROLOGIC: He as mentioned did seem to have difficulties with his peripheral vision both to the left and to the right. His sensation appeared to be intact. Muscle strength was 5/5 on the left and about 4/5 on the right. He had word- finding difficulties noted with his speech. FUNCTIONAL EXAM: He transfers with min assist. ASSESSMENT: Multiple embolic cerebrovascular accidents with bilateral visual field cuts and aphasia. PLAN: Integrate him into a comprehensive and therapeutic rehab program with the following goals: 1. Physical Therapy will work with the patient. They are going to work on functional transfer training, ambulation training with a walker. 2. Occupational Therapy will see the patient, work on his activities of daily living including toileting and toilet transfers. 3. Speech Therapy will see the patient, work on his aphasia as well as his cognitive linguistic deficits. 4. Heparin for DVT prophylaxis. We will need to start this not sooner than . 5. Continue Lipitor 80 mg daily and aspirin 81 mg daily for secondary stroke prevention. 6. For his insulin, we will do fingersticks 4 times a day with appropriate insulin coverage. 7. We will begin anticoagulation on 01/17/20 after repeat CAT scan done on that date. This will be done only if the repeat CAT scan does not show any sign of hemorrhage. 8. For his hypertension, we will continue Altace, but we will allow permissive hypertension. 9. Family training as appropriate. 10. Home with appropriate services. ESTIMATED LENGTH OF STAY: 14 days. [id number]/[facility] #: [id number] [facility]ITALMari
[2020-01-09 04:24] LABS: ABS Basophils 0.1 10^3/ul (0-0.2); ABS Eosinophils 0.2 10^3/ul (0-0.6); ABS Lymphocytes 1.8 10^3/ul (1.0-4.8); ABS Monocytes 0.8 10^3/ul (0-0.8); Eosinophil % 2.6 %; Hematocrit 36 % (42-52); Hemoglobin 12.3 g/dL (14.0-18.0); Lymphocyte % 23.1 %; Mean Corpuscular HGB Conc 34 g/dL (31-36); Mean Corpuscular Hemoglobin 29 pg (27-31); Mean Corpuscular Volume 83 fL (80-94); Mean Platelet Volume 8.7 fL (7.4-10.4); Platelet Count 160 10^3/uL (150-450); Red Blood Count 4.32 10^6 /uL (4.18-5.48); Red Cell Distribution Width 14 % (10-15); White Blood Count 7.9 10^3/uL (3.5-10.8)
[2020-01-09 04:40] LABS: Albumin 3.8 g/dL (3.2-5.2); Albumin/Globulin Ratio 1.7 (1-3); BUN/Creatinine Ratio 19.3 (8-20); Calcium 9.3 mg/dL (8.6-10.3); EGFR African American 61.5 (>60); EGFR Non-African American 50.9 (>60); Globulin 2.3 g/dL (2-4); Potassium 3.2 mmol/L (3.5-5.0); Total Bilirubin 1.2 mg/dL (0.2-1.0); Total Protein 6.1 g/dL (6.4-8.9)
[2020-01-09] MEDS: Insulin LISPRO* 1 UNITS UNIT SUBCUT SCH ×3 (07:23→17:01)
[2020-01-09] MEDS: Metoprolol Succinate XL TAB* 100 MG PO SCH (08:07)
[2020-01-09] MEDS: Ramipril CAP* 10 MG PO SCH (08:07)
[2020-01-09] MEDS: Aspirin EC TAB* 81 MG TAB.EC PO SCH (08:07)
[2020-01-09] MEDS: Docusate CAP* 100 MG PO SCH ×2 (08:07→19:59)
[2020-01-09] MEDS: Atorvastatin* 80 MG TAB PO SCH (17:12)
--- NOTE | 2020-01-09 18:49 | PN ---
Progress Note Date of Service: 01/09/20 Note: NARENDRA SANDOVAL was visited. Therapy notes read and reviewed. He feels like he had a good first day of therapy. Upset that his will not be able to visit Current Medications: Active Medications Generic Name Dose Route Start Last Admin Trade Name Freq PRN Reason Stop Dose Admin Acetaminophen 650 mg 01/08/20 16:15 Tylenol Tab* PO Q6H PRN MILD PAIN or TEMP > 100.4 Aspirin 81 mg 01/09/20 09:00 01/09/20 08:07 Aspirin Ec Tab* PO 81 mg DAILY SHAUNNA Administration Atorvastatin Calcium 80 mg 01/08/20 17:00 01/09/20 17:12 Lipitor* PO 80 mg 1700 SHAUNNA Administration Dextrose 12.5 gm 01/08/20 16:20 D50w Syringe 50 Ml* IV PUSH .FOR FS < 60 - SS PRN FS < 60 Docusate Sodium 100 mg 01/08/20 21:00 01/09/20 08:07 Colace Cap* PO 100 mg BID SHAUNNA Administration Insulin Human Lispro 0 - 6 units 01/08/20 16:30 01/09/20 17:01 Humalog* SUBCUT Not Given ACHS [facility] Protocol Magnesium Hydroxide 30 ml 01/08/20 16:15 Milk Of Magnesia Liq* PO Q6H PRN CONSTIPATION Metoprolol Succinate 100 mg 01/09/20 09:00 01/09/20 08:07 Toprol Xl Tab* PO 100 mg DAILY SHAUNNA Administration Ramipril 10 mg 01/09/20 09:00 01/09/20 08:07 Altace Cap* PO 10 mg DAILY SHAUNNA Administration Senna 2 tab 01/08/20 16:15 Senokot 8.6 Mg Tab* PO BEDTIME PRN CONSTIPATION Vital Signs: Vital Signs Temp Pulse Resp BP Pulse Ox 97.8 F 72 20 164/71 97 01/09/20 17:18 01/09/20 17:18 01/09/20 17:18 01/09/20 17:18 01/09/20 17:18 Lab Results: Laboratory Results - last 24 hr 01/08/20 01/08/20 01/09/20 17:24 20:20 03:39 WBC 7.9 RBC 4.32 Hgb 12.3 L Hct 36 L MCV 83 MCH 29 MCHC 34 RDW 14 Plt Count 160 MPV 8.7 Neut % (Auto) 62.9 Lymph % (Auto) 23.1 Granite % (Auto) 10.6 Eos % (Auto) 2.6 Baso % (Auto) 0.8 Absolute Neuts (auto) 5.0 Absolute Lymphs (auto) 1.8 Absolute Monos (auto) 0.8 Absolute Eos (auto) 0.2 Absolute Basos (auto) 0.1 Absolute Nucleated RBC 0.0 Nucleated RBC % 0.0 Sodium Potassium Chloride Carbon Dioxide Anion Gap BUN Creatinine Est GFR ( Amer) Est GFR (Non-Af Amer) BUN/Creatinine Ratio Glucose POC Glucose (mg/dL) 122 H 152 H Calcium Total Bilirubin AST ALT Alkaline Phosphatase Total Protein Albumin Globulin Albumin/Globulin Ratio 01/09/20 03:39 WBC RBC Hgb Hct MCV MCH MCHC RDW Plt Count MPV Neut % (Auto) Lymph % (Auto) Granite % (Auto) Eos % (Auto) Baso % (Auto) Absolute Neuts (auto) Absolute Lymphs (auto) Absolute Monos (auto) Absolute Eos (auto) Absolute Basos (auto) Absolute Nucleated RBC Nucleated RBC % Sodium 138 Potassium 3.2 L Chloride 103 Carbon Dioxide 27 Anion Gap 8 BUN 26 H Creatinine 1.35 H Est GFR ( Amer) 61.5 Est GFR (Non-Af Amer) 50.9 BUN/Creatinine Ratio 19.3 Glucose 104 H POC Glucose (mg/dL) Calcium 9.3 Total Bilirubin 1.20 H AST 16 ALT 8 Alkaline Phosphatase 61 Total Protein 6.1 L Albumin 3.8 Globulin 2.3 Albumin/Globulin Ratio 1.7 Exam: GENERAL: No distress HEENT: Peripheral field cuts bilaterally LUNGS: Clear bilaterally HEART: Irregularly irreg rhythm. II/ Systolic murmur ABDOMEN: Soft EXTREMITIES: Normal tone NEUROLOGIC: sensation intact. Aphasia. Motor 5/ Assessment/Plan: 1. Bilateral CVA: ASA/Lipitor. Permissive HTN. Repeat CT Scan of head January 16. If neg for bleeding, start Eliquis 5 BID 2. DM: Fingersticks ok. Resume Metformin, start 500 BID. Decrease finger sticks 3. Aortic Stenosis: Follow 4. Atrial Fibrillation: Toprol XL. Start Eliquis after January [address] Negative 5. DVT Prophylaxis: Heparin 5000 units BID start in am 6. Advance Directives: Full code, is surrogate decision maker 7. HTN: Altace 03/18/20 18:46 01/09/20 18:50
[2020-01-09] MEDS ORDERED: Potassium Chlor TAB* 20 MEQ TAB.ER PO ONE (18:51)
[2020-01-09] MEDS: Senna TAB 8.6 mg* TAB PO PRN (20:00)
[2020-01-10] MEDS: Insulin LISPRO* 1 UNITS UNIT SUBCUT SCH ×2 (07:25→17:08)
[2020-01-10] MEDS: Aspirin EC TAB* 81 MG TAB.EC PO SCH (07:35)
[2020-01-10] MEDS: Docusate CAP* 100 MG PO SCH ×2 (07:35→19:59)
[2020-01-10] MEDS: metFORMIN* 500 MG TAB PO SCH ×2 (07:35→17:06)
[2020-01-10] MEDS: Ramipril CAP* 10 MG PO SCH (07:36)
[2020-01-10] MEDS: Potassium Chlor TAB* 20 MEQ TAB.ER PO SCH (07:36)
[2020-01-10] MEDS: Heparin VIAL(*) 5000 UNITS/ML VIAL (FIVE THOUSAND) SUBCUT SCH ×2 (07:36→20:01)
[2020-01-10] MEDS: Metoprolol Succinate XL TAB* 100 MG PO SCH (07:36)
[2020-01-10] MEDS: Atorvastatin* 80 MG TAB PO SCH (17:06)
--- NOTE | 2020-01-10 17:59 | PN ---
Progress Note Date of Service: 01/10/20 Note: NARENDRA SANDOVAL was visited. Therapy notes read and reviewed. Remains aphasic but otherwise no complaints. He seems to be doing fairly well. No complaints of headache Current Medications: Active Medications Generic Name Dose Route Start Last Admin Trade Name Freq PRN Reason Stop Dose Admin Acetaminophen 650 mg 01/08/20 16:15 Tylenol Tab* PO Q6H PRN MILD PAIN or TEMP > 100.4 Aspirin 81 mg 01/09/20 09:00 01/10/20 07:35 Aspirin Ec Tab* PO 81 mg DAILY SHAUNNA Administration Atorvastatin Calcium 80 mg 01/08/20 17:00 01/10/20 17:06 Lipitor* PO 80 mg 1700 SHAUNNA Administration Dextrose 12.5 gm 01/08/20 16:20 D50w Syringe 50 Ml* IV PUSH .FOR FS < 60 - SS PRN FS < 60 Docusate Sodium 100 mg 01/08/20 21:00 01/10/20 07:35 Colace Cap* PO 100 mg BID SHAUNNA Administration Heparin Sodium (Porcine) 5,000 units 01/10/20 09:00 01/10/20 07:36 Heparin Vial(*) SUBCUT 5,000 units Q12HR SHAUNNA Administration Insulin Human Lispro 0 - 6 units 01/10/20 08:00 01/10/20 17:08 Humalog* SUBCUT Not Given 0800,1700 [facility] Protocol Magnesium Hydroxide 30 ml 01/08/20 16:15 01/10/20 07:47 Milk Of Magnesia Liq* PO 30 ml Q6H PRN Administration CONSTIPATION Metformin HCl 500 mg 01/10/20 08:00 01/10/20 17:06 Glucophage* PO 500 mg 0800,1700 SHAUNNA Administration Metoprolol Succinate 100 mg 01/09/20 09:00 01/10/20 07:36 Toprol Xl Tab* PO 100 mg DAILY SHAUNNA Administration Potassium Chloride 20 meq 01/10/20 09:00 01/10/20 07:36 Klor Con Er Tab* PO 20 meq DAILY SHAUNNA Administration Ramipril 10 mg 01/09/20 09:00 01/10/20 07:36 Altace Cap* PO 10 mg DAILY SHAUNNA Administration Senna 2 tab 01/08/20 16:15 01/09/20 20:00 Senokot 8.6 Mg Tab* PO 2 tab BEDTIME PRN Administration CONSTIPATION Vital Signs: Vital Signs Temp Pulse Resp BP Pulse Ox 98.0 F 95 18 142/58 100 01/10/20 15:51 01/10/20 15:51 01/10/20 15:51 01/10/20 16:57 01/10/20 16:00 Lab Results: Laboratory Results - last 24 hr 01/09/20 01/09/20 01/09/20 07:22 11:47 16:57 POC Glucose (mg/dL) 112 H 131 H 150 H 01/10/20 01/10/20 07:24 16:49 POC Glucose (mg/dL) 93 138 H Exam: GENERAL: No distress HEENT: Peripheral field cuts bilaterally LUNGS: Clear bilaterally HEART: Irregularly irreg rhythm. II/ Systolic murmur ABDOMEN: Soft EXTREMITIES: Normal tone NEUROLOGIC: sensation intact. Aphasia. Motor 5/5 Assessment/Plan: 1. Bilateral CVA: ASA/Lipitor. Permissive HTN. Repeat CT Scan of head January 16. If neg for bleeding, start Eliquis 5 BID 2. DM: Metformin, 500 BID. Will increase to 1000 Tuesday; finger sticks 3. Aortic Stenosis: Follow 4. Atrial Fibrillation: Toprol XL. Start Eliquis after January [address] Negative 5. DVT Prophylaxis: Heparin 5000 units BID 6. Advance Directives: Full code, is surrogate decision maker 7. HTN: Altace 01/10/20 18:00 01/10/20 18:01
[2020-01-10] MEDS: Senna TAB 8.6 mg* TAB PO PRN (19:59)
[2020-01-11] MEDS: Docusate CAP* 100 MG PO SCH ×2 (09:38→19:57)
[2020-01-11] MEDS: Aspirin EC TAB* 81 MG TAB.EC PO SCH (09:38)
[2020-01-11] MEDS: metFORMIN* 500 MG TAB PO SCH ×2 (09:38→16:27)
[2020-01-11] MEDS: Potassium Chlor TAB* 20 MEQ TAB.ER PO SCH (09:38)
[2020-01-11] MEDS: Ramipril CAP* 10 MG PO SCH (09:38)
[2020-01-11] MEDS: Metoprolol Succinate XL TAB* 100 MG PO SCH (09:39)
[2020-01-11] MEDS: Heparin VIAL(*) 5000 UNITS/ML VIAL (FIVE THOUSAND) SUBCUT SCH ×2 (09:39→19:59)
[2020-01-11] MEDS: Insulin LISPRO* 1 UNITS UNIT SUBCUT SCH ×2 (09:59→16:29)
--- NOTE | 2020-01-11 13:02 | PMRUTEAM ---
PMRU: Team Meeting Current Status: Physical Therapy: Current Status Current Rolling Status Supervision/Touching Current Supine <-> Sit Status Supervision/Touching Current Sit <-> Stand Status Supervision/Touching Current Bed <-> Chair Status Supervision/Touching Transfer/Bed Mobility None,Rolling Walker Recommended Devices Current Picking Up Object Not attempted Status Current Car Transfer Status Partial/Moderate Current Ambulation Assistance Supervision/Touching Status Ambulation Assistive Device None,Rolling Walker Ambulation Conditions Two or More Turns,Uneven Surfaces Current Ambulation Distance 150' x 3 Current Wheelchair Propulsion Not Applicable Ability Status Current Stair Climbing Status Supervision/Touching Stair Climbing Assistive Left Railing,Right Railing Devices Number of Stairs Climbed 10 Current Curb Assistance Status Partial/Moderate Curb Assistive Devices Railings Objective Comments Moderate dysmetria noted bilaterally. Pt continues to present with moderate expressive and receptive aphasia throughout session, worsening with fatigue. Occupational Therapy: Current Status Current Upper Body Dressing Partial/Moderate Status Current Lower Body Dressing Substantial/Maximal Status Current Footwear Status Supervision/Touching Current Bathing Status Partial/Moderate Current Grooming Status Supervision/Touching Current Toileting Status Partial/Moderate Current Toilet Transfer Status Partial/Moderate Current Eating Status Supervision/Touching Nursing: Current Status Skin Deviations [Left Lateral Abrasion Foot] Skin Deviation Description [ red scab, healing Left Lateral Foot] Rec Therapy: Current Status Summary of Assessment and Pt was open to meet with staff and was pleasant Clinical Impression during the coversation. Pt had some difficulty expressing himself at times due to his aphasia. Pt 's was present during conversation and assited him in identifying some of his interests. Pt declined any independent leisure needs at this time, but was open to continued leisure visits. Treatment Goals Pt will engaged in leisure activities while on the unit, as tolerated Treatment Plan Provide recreation therapy services and encourage involvement Social Work: Current Status Discharge Plan return home with home care service and family support Potential for Family Training pt's is supportive and involved Anticipated Discharge Home Destination Discharge With home care svs and family support Speech: Current Status Assessment Patient is progressing as expected. Goals: Physical Therapy: Goals Goals to Be Accomplished in ( 7-10 Days) Goal: Rolling Assistance Independent Goal Supine <-> Sit Status Independent Goal Sit <-> Stand Status Supervision/Touching Goal Bed <-> Chair Status Supervision/Touching Transfer/Bed Mobility None,Rolling Walker Recommended Devices Goal: Picking Up Object Supervision/Touching Goal: Car Transfer Status Setup or Clean-up Assist Goal: Ambulation Assistance Supervision/Touching Ambulation Assistive Devices None,Rolling Walker Ambulation Distance (ft) 150 Goal: Stairs Assistance Supervision/Touching Stairs Recommended Devices Straight Cane,One Rail,Two Rails Number of Stairs 10 Goal: Curb Assistance Supervision/Touching Goal: Home Exercise Program Supervision/Touching Assistance Occupational Therapy: Goals Goals to be Completed in (Days 10-14 ) Goal Upper Body Dressing Setup or Clean-up Assist Routine Goal Lower Body Dressing Supervision/Touching Routine Goal Footwear Status Setup or Clean-up Assist Goal Bathing Routine (OT) Supervision/Touching Goal Grooming Routine Setup or Clean-up Assist Goal Toilet Hygiene and Independent Clothing Management Routine Goal Toilet Transfer Routine Independent Goal Functional Transfers for Independent ADL Goal Feeding Routine Setup or Clean-up Assist Speech: Goals Speech Goal 1 Comprehension Speech Evaluation Status Goal moderate 1 Goal 1 Comments Comprehension Goal, Long-Term: Pt will use compensatory strategies to demonstrate comprehension of paragraph length verbal and written information of moderate complexity, 100% accuracy, given minimal extra time, Independently. Status: progressing as expected Comprehension Goal, Short-Term: Pt will use compensatory strategies to demonstrate comprehension of paragraph length verbal and written information of simple complexity, 90% accuracy, given moderate extra time, and Moderate skilled instruction and cueing. Status: progressing as expected STAFF ANESTHETIST directed patient to follow one-step directions with twp criteria, such as "Show me your right knee." Speech Goal 2 Expression Speech Goal 2 Evaluation moderate Status Speech Goal 2 Comments Belt Loop Cutter Goal: Pt will use conversational repair strategies to cooperatively find words in structured conversation, 100% accuracy, given extra time, Independently. Expression, Short-Term Goal #1: Pt will use conversational repair strategies to cooperatively find words in structured language activities, 75% accuracy, given Moderate skilled instruction and cueing. Status: progressing as expected Expression, Short-Term Goal #2: Pt will complete automatic language tasks (SARAH, VIOLETTA, Counting, etc. ) w/100% accuracy given min/mod cues. Status: progressing as expected Patient counted up to 21 accurately, and backward from 21 given 4 cues for skipped numbers. Patient named SARAH I'ly. STAFF ANESTHETIST presented 4 pictures for visual and verbal memory task. Patient named 2/4 I'ly, and 2 required cues and successive sound approximations. required models and maximal cueing with repetition to recall and name 4/4 immediately after after looking away. Patient recalled and named 2/4 I'ly after delays of 20 seconds to one minute. STAFF ANESTHETIST presented verbl models of 3 to 5 syllable words, and patient repeated wqitb 80% accuracy I' ly. STAFF ANESTHETIST instructed by teaching syllables by backward chaining, and emphasis on the erhythm of stressed syllables. Speech Goal 3 Problem Solving Speech Goal 3 Evaluation moderate Status Speech Goal 3 Comments Problem Solving Goal: Long-Term Goal: Pt will use compensatory strategies to solve moderately complex routine problems, for transfer and mobility safety, adaptive dressing, time and money management; with 100% accuracy, Independently. Status: progressing as expected Problem Solving Goal: Short-Term: Pt will use compensatory strategies to solve simple routine problems, for transfer and mobility safety, adaptive dressing, time and money management; with 80% accuracy, given skilled instruction, Moderate cueing, and extra time. Status: progressing as expected Social Work: Goals Discharge Plan return home with home care service and family support Potential for Family Training pt's is supportive and involved Anticipated Discharge Home Destination Discharge With home care svs and family support Care Plan: Care Plan ADL's - Improve/Maintain Start: 01/08/20 16:43 Freq: DAILY@[id number],1900 Status: Active Target: 01/09/20 Protocol: Activity Type Activity Date Activity User E-Sign Co-Sign Detail Recorded Client Recorded Date Recorded By Document 01/10/20 15:10 [id number] 01/10/20 15:11 [id number] 01/10/20 15:10 PMRU Outcome: ADL's/ADL Transfers Orders/Interventions Occupational Therapy Evaluation & Treatment Communication Tool in Patient Room Device Yes Address Deficits Secondary To: Minor CVA Patient to receive OT 5x/wk for 60-120 Therex min/day Self Care Management Group Therapy Neuromuscular ReEducation UE/LE ADL's with Assist Yes: supervision/ setup ADL Transfers with Assist Yes: independent Toileting: Transfers,Clothing Management Yes: ,Hygeine w/Assist independent Light Kitchen/Laundry w/Assist No Other Outcome/Goals Pt tolerates OT tx session well this date. Noted possible improved vision . Will continue to work on dual tasking with pt and visual perceptual tasks. Progression Toward Outcome/Goals Progressing Cardiovascular- Improve/Maintain Start: 01/08/20 18:28 Freq: DAILY@[id number] Status: Active Target: 01/22/20 Protocol: Activity Type Activity Date Activity User E-Sign Co-Sign Detail Recorded Client Recorded Date Recorded By Document 01/11/20 07:00 [id number] 01/11/20 09:28 [id number] 01/11/20 07:00 PMRU Outcome: Cardiovascular Vital Signs q Shift for 48hrs Then BID Yes Daily Weight Ordered No Current Cardiovascular Outcome/Goal Maintain/ Achieve Baseline HR, BP , Perfusion Improve HR Within Prescribed Parameters Maintain/ Improve Perfusion Free of Abnormal Cardiac Symptoms Progression Toward Outcome/Goal Progressing Communication-Improve/Maintain Start: 01/08/20 18:28 Freq: DAILY@ Status: Active Target: 01/22/20 Protocol: Activity Type Activity Date Activity User E-Sign Co-Sign Detail Recorded Client Recorded Date Recorded By Document 01/11/20 07:00 [id number] 01/11/20 09:28 [id number] 01/11/20 07:00 PMRU Outcome: Communication/Cognitive Status Current Communication Outcome/Goals Makes Needs Known Effectively Progression Toward Outcomes/Goals Progressing DVT Prophylaxis- Improve/Maintain Start: 01/08/20 18:28 Freq: DAILY@ Status: Complete Target: 01/22/20 Protocol: Activity Type Activity Date Activity User E-Sign Co-Sign Detail Recorded Client Recorded Date Recorded By Document 01/10/20 15:57 [id number] 01/10/20 15:58 [id number] 01/10/20 15:57 PMRU Outcome: DVT Prophylaxis Current DVT Outcome/Goals Remains Free of DVT Complies with DVT Prophylaxis /Treatment Demonstrates Knowledge of DVT Prevention/ Treatment TEDS Stockings on Every AM, Off at HS Progression Toward Outcome/Goals Goals Met Outcome/Goals Met Remains Free of DVT Discharge Planning - Improve/Maintain Start: 01/08/20 18:28 Freq: DAILY@[id number] Status: Active Target: 01/22/20 Protocol: Activity Type Activity Date Activity User E-Sign Co-Sign Detail Recorded Client Recorded Date Recorded By Document 01/11/20 07:00 [id number] 01/11/20 09:28 [id number] 01/11/20 07:00 PMRU Outcome: Discharge Planning Update Patient Family No: familiy not present this am Current Discharge Planning Outcome/Goals Demonstrates Understanding of Discharge Plan Homecare Referral - See Comment Progression Toward Outcome/Goals Progressing Education-Improve/Maintain Start: 01/08/20 18:28 Freq: DAILY@0700,1900 Status: Active Target: 01/22/20 Protocol: Activity Type Activity Date Activity User E-Sign Co-Sign Detail Recorded Client Recorded Date Recorded By Document 01/11/20 07:00 [id number] 01/11/20 09:28 [id number] 01/11/20 07:00 PMRU Outcome: Education Current Education Outcome/Goals Demonstrate/ Verbalize Understanding of Written Discharge Instructions Demonstrates Skills Encourage Questions Progression Toward Outcome/Goals Progressing /GI-Improve/Maintain Start: 01/08/20 18:28 Freq: DAILY@699,0 Status: Active Target: 01/22/20 Protocol: Activity Type Activity Date Activity User E-Sign Co-Sign Detail Recorded Client Recorded Date Recorded By Document 01/11/20 07:00 [id number] 01/11/20 09:28 [id number] 01/11/20 07:00 PMRU Outcome: Genitourinary/ Gastrointestinal Current Gastrointestinal Outcome/Goals Maintain/ Achieve Bowel Regularity in Accordance with Pt's Baseline Remain Free of Emesis Prevent Constipation Laxatives as Ordered Progression Toward Outcome/Goals Goals Met Outcome/Goals Met Maintain/ Achieve Bowel Regularity in Accordance with Pt's Baseline Prevent Constipation Laxatives as Ordered Current Genitourinary Outcome/Goals Maintain/ Achieve Urinary Continence Maintain/ Achieve Adequate Urinary Output Remain Free of Hospital- Acquired UTI Progression Toward Outcome/Goals Progressing Outcome/Goals Met Maintain/ Achieve Urinary Continence Medication Administration Start: 01/08/20 18:28 Freq: DAILY@[id number] Status: Active Target: 01/22/20 Protocol: Activity Type Activity Date Activity User E-Sign Co-Sign Detail Recorded Client Recorded Date Recorded By Document 01/11/20 07:00 [id number] 01/11/20 09:28 [id number] 01/11/20 07:00 PMRU Outcome: Medication Administration Assess Patient Knowledge/Teach Med Yes Education for all Meds Current Garment Folder Outcome/Goals Family/ Caregiver Administer Medications at Home Demonstrates Understanding Progression Towards Outcome/Goals Progressing Is Patient Going Home on Lovenox? No Metabolic Status- Improve/Maintain Start: 01/08/20 18:28 Freq: DAILY@ Status: Active Target: 01/22/20 Protocol: Activity Type Activity Date Activity User E-Sign Co-Sign Detail Recorded Client Recorded Date Recorded By Document 01/11/20 07:00 [id number] 01/11/20 09:28 [id number] 01/11/20 07:00 PMRU Outcome: Metabolic Status Have Fingersticks Been Ordered Yes Fingerstick Order Frequency BID Current Metabolic Status Outcome/Goals Maintain/ Improve Metabolic Status Demonstrate Knowledge of Prevention/ Treatment of Metabolic Imbalances Progression Toward Outcome/Goals Progressing Mobility- Improve/Maintain Start: 01/08/20 17:49 Freq: DAILY@ Status: Active Target: 01/09/20 Protocol: Activity Type Activity Date Activity User E-Sign Co-Sign Detail Recorded Client Recorded Date Recorded By Document 01/10/20 16:25 [id number] 01/10/20 16:26 [id number] 01/10/20 16:25 PMRU Outcome: Mobility Physical Therapy Evaluation and Yes Treatment Activity OOB with Assistance Yes Device Yes: FWW Assistance Yes: Min A Patient to be seen 5x/wk for 60-120 min/ Therex day for: Mobility Training Gait Training Balance Current Mobility Outcome/Goals Maintain/ Achieve Baseline Mobility Status Improve Mobility Status Demonstrates Proper Use of Assistive Devices Free from Complications of Immobility Progression Toward Outcome/Goals Progressing Bed Mobility Yes: Ind Transfers Yes: Ind with FWW Gait x ft Yes: Ind with FWW x150ft W/C Mobility x ft No Up/Down Stairs Yes: Supervision x1 flight, 2 rails With HEP Yes Neurological- Improve/Maintain Start: 01/08/20 18:28 Freq: DAILY@0 Status: Active Target: 01/22/20 Protocol: Activity Type Activity Date Activity User E-Sign Co-Sign Detail Recorded Client Recorded Date Recorded By Document 01/11/20 07:00 [id number] 01/11/20 09:28 [id number] 01/11/20 07:00 PMRU Outcome: Neurological Weakness/Aphasia Weakness Aphasia Weakness/Aphasia Comment s/p bilateral cva, visual difficulties Current Neurological Outcome/Goals Maintain/ Achieve Baseline Neurological Status Improve Neurological Status Prevent Avoidable Neurological Decline Demonstrate Knowledge of Prevention/Tx of Neuro Disorders/ Complication Maintain/ Improve Strength/ROM Progression Toward Outcome/Goals Progressing Rec Therapy- Improve/Maintain Start: 01/09/20 16:25 Freq: DAILY@[id number] Status: Active Target: 01/15/20 Protocol: Activity Type Activity Date Activity User E-Sign Co-Sign Detail Recorded Client Recorded Date Recorded By Document 01/10/20 16:51 [id number] 01/10/20 16:53 [id number] 01/10/20 16:51 PMRU Outcome: Recreation Therapy Current Rec Ther Outcome/Goals Complete Rec Therapy Assessment Meet with Patient Regularly for Support Encourage Leisure Involvement Progression Toward Outcome/Goals Progressing Lack of Progression Comment Met with pt and played [employer], which he appeared to enjoy playing. Outcome/Goals Met Complete Rec Therapy Assessment Safety- Improve/Maintain Start: 01/08/20 13:59 Freq: DAILY@0700,1900 Status: Active Target: 01/22/20 Protocol: Activity Type Activity Date Activity User E-Sign Co-Sign Detail Recorded Client Recorded Date Recorded By Document 01/11/20 07:00 [id number] 01/11/20 09:28 [id number] 01/11/20 07:00 PMRU Outcome: Safety Current Safety Outcome/Goals Remain Free of Injury or Harm Cooperates with Safety Measures for Least Restrictive Environment Prevent Falls/ Injury Progression Toward Outcome/Goals Progressing Outcome/Goals Met Comment personal alarm in place - Interdisciplinary Staff Present Clinical Laboratory Technologist/Social Work Staff Present: Joi Mo LMSW Nursing Staff Present: Alcira Aburto, RN OT Staff Present: Pina Mathew PT Staff Present: Vilma Ashraf STAFF ANESTHETIST Staff Present: Roldan Lowery Medicine Note: Length of Stay: 10 days Anticipated Discharge Destination: Home Tentative Discharge Date: 01/22/20 Discharged to: Home
[2020-01-11] MEDS: Atorvastatin* 80 MG TAB PO SCH (16:27)
--- NOTE | 2020-01-11 19:00 | PN ---
Progress Note Date of Service: 01/11/20 Note: NARENDRA SANDOVAL was visited. Therapy notes read and reviewed. He was discussed in interdisciplinary plan of care rounds. Overall doing fairly well. Misses his Current Medications: Active Medications Generic Name Dose Route Start Last Admin Trade Name Freq PRN Reason Stop Dose Admin Acetaminophen 650 mg 01/08/20 16:15 Tylenol Tab* PO Q6H PRN MILD PAIN or TEMP > 100.4 Aspirin 81 mg 01/09/20 09:00 01/11/20 09:38 Aspirin Ec Tab* PO 81 mg DAILY SHAUNNA Administration Atorvastatin Calcium 80 mg 01/08/20 17:00 01/11/20 16:27 Lipitor* PO 80 mg 1700 SHAUNNA Administration Dextrose 12.5 gm 01/08/20 16:20 D50w Syringe 50 Ml* IV PUSH .FOR FS < 60 - SS PRN FS < 60 Docusate Sodium 100 mg 01/08/20 21:00 01/11/20 09:38 Colace Cap* PO 100 mg BID SHAUNNA Administration Heparin Sodium (Porcine) 5,000 units 01/10/20 09:00 01/11/20 09:39 Heparin Vial(*) SUBCUT 5,000 units Q12HR SHAUNNA Administration Insulin Human Lispro 0 - 6 units 01/10/20 08:00 01/11/20 16:29 Humalog* SUBCUT Not Given 0800,1700 [facility] Protocol Magnesium Hydroxide 30 ml 01/08/20 16:15 01/10/20 07:47 Milk Of Magnesia Liq* PO 30 ml Q6H PRN Administration CONSTIPATION Metformin HCl 500 mg 01/10/20 08:00 01/11/20 16:27 Glucophage* PO 500 mg 0800,1700 SHAUNNA Administration Metoprolol Succinate 100 mg 01/09/20 09:00 01/11/20 09:39 Toprol Xl Tab* PO 100 mg DAILY SHAUNNA Administration Potassium Chloride 20 meq 01/10/20 09:00 01/11/20 09:38 Klor Con Er Tab* PO 20 meq DAILY SHAUNNA Administration Ramipril 10 mg 01/09/20 09:00 01/11/20 09:38 Altace Cap* PO 10 mg DAILY SHAUNNA Administration Senna 2 tab 01/08/20 16:15 01/10/20 19:59 Senokot 8.6 Mg Tab* PO 2 tab BEDTIME PRN Administration CONSTIPATION Vital Signs: Vital Signs Temp Pulse Resp BP Pulse Ox 98.2 F 68 20 156/67 99 01/11/20 14:48 01/11/20 14:48 01/11/20 14:48 01/11/20 14:48 01/11/20 16:47 Lab Results: Laboratory Results - last 24 hr 01/11/20 01/11/20 07:30 16:29 POC Glucose (mg/dL) 118 H 100 Exam: GENERAL: No distress HEENT: Peripheral field cuts bilaterally LUNGS: Clear bilaterally HEART: Irregularly irreg rhythm. II/ Systolic murmur ABDOMEN: Soft EXTREMITIES: Normal tone NEUROLOGIC: sensation intact. Aphasia. Motor 5/5 Assessment/Plan: 1. Bilateral CVA: ASA/Lipitor. Permissive HTN. Repeat CT Scan of head January 16. If neg for bleeding, start Eliquis 5 BID 2. DM: Metformin, 500 BID. Will increase to 1000 Tuesday; finger sticks BID 3. Aortic Stenosis: Follow 4. Atrial Fibrillation: Toprol XL. Start Eliquis after January [address] Negative 5. DVT Prophylaxis: Heparin 5000 units BID 6. Advance Directives: Full code, is surrogate decision maker 7. HTN: Altace 01/11/20 19:00
[2020-01-11] MEDS: Senna TAB 8.6 mg* TAB PO PRN (19:57)
[2020-01-12] MEDS: metFORMIN* 500 MG TAB PO SCH (08:04)
[2020-01-12] MEDS: Insulin LISPRO* 1 UNITS UNIT SUBCUT SCH ×2 (08:05→16:58)
[2020-01-12] MEDS: Ramipril CAP* 10 MG PO SCH (09:33)
[2020-01-12] MEDS: Aspirin EC TAB* 81 MG TAB.EC PO SCH (09:33)
[2020-01-12] MEDS: Heparin VIAL(*) 5000 UNITS/ML VIAL (FIVE THOUSAND) SUBCUT SCH ×2 (09:33→20:26)
[2020-01-12] MEDS: Metoprolol Succinate XL TAB* 100 MG PO SCH (09:33)
[2020-01-12] MEDS: Potassium Chlor TAB* 20 MEQ TAB.ER PO SCH (09:33)
[2020-01-12] MEDS: Docusate CAP* 100 MG PO SCH ×2 (09:33→20:26)
--- NOTE | 2020-01-12 12:25 | PN ---
Progress Note Date of Service: 01/12/20 Note: NARENDRA SANDOVAL was visited. Therapy notes read and reviewed. He is in good spirits today and doing well overall. Moving well and otherwise ok without complaints Current Medications: Active Medications Generic Name Dose Route Start Last Admin Trade Name Freq PRN Reason Stop Dose Admin Acetaminophen 650 mg 01/08/20 16:15 Tylenol Tab* PO Q6H PRN MILD PAIN or TEMP > 100.4 Aspirin 81 mg 01/09/20 09:00 01/12/20 09:33 Aspirin Ec Tab* PO 81 mg DAILY SHAUNNA Administration Atorvastatin Calcium 80 mg 01/08/20 17:00 01/11/20 16:27 Lipitor* PO 80 mg 1700 SHAUNNA Administration Dextrose 12.5 gm 01/08/20 16:20 D50w Syringe 50 Ml* IV PUSH .FOR FS < 60 - SS PRN FS < 60 Docusate Sodium 100 mg 01/08/20 21:00 01/12/20 09:33 Colace Cap* PO 100 mg BID SHAUNNA Administration Heparin Sodium (Porcine) 5,000 units 01/10/20 09:00 01/12/20 09:33 Heparin Vial(*) SUBCUT 5,000 units Q12HR SHAUNNA Administration Insulin Human Lispro 0 - 6 units 01/10/20 08:00 01/12/20 08:05 Humalog* SUBCUT Not Given 0800,1700 [facility] Protocol Magnesium Hydroxide 30 ml 01/08/20 16:15 01/10/20 07:47 Milk Of Magnesia Liq* PO 30 ml Q6H PRN Administration CONSTIPATION Metformin HCl 500 mg 01/10/20 08:00 01/12/20 08:04 Glucophage* PO 500 mg 0800,1700 SHAUNNA Administration Metoprolol Succinate 100 mg 01/09/20 09:00 01/12/20 09:33 Toprol Xl Tab* PO 100 mg DAILY SHAUNNA Administration Potassium Chloride 20 meq 01/10/20 09:00 01/12/20 09:33 Klor Con Er Tab* PO 20 meq DAILY SHAUNNA Administration Ramipril 10 mg 01/09/20 09:00 01/12/20 09:33 Altace Cap* PO 10 mg DAILY SHAUNNA Administration Senna 2 tab 01/08/20 16:15 01/11/20 19:57 Senokot 8.6 Mg Tab* PO 2 tab BEDTIME PRN Administration CONSTIPATION Vital Signs: Vital Signs Temp Pulse Resp BP Pulse Ox 98.8 F 58 18 142/62 97 01/12/20 06:10 01/12/20 06:10 01/12/20 08:00 01/12/20 06:10 01/12/20 08:00 Lab Results: Laboratory Results - last 24 hr 01/11/20 16:29 POC Glucose (mg/dL) 100 Exam: GENERAL: No distress HEENT: Peripheral field cuts bilaterally but vision seems to be improving LUNGS: Clear bilaterally HEART: Irregularly irreg rhythm. II/ Systolic murmur ABDOMEN: Soft EXTREMITIES: Normal tone NEUROLOGIC: sensation intact. Aphasia. Motor 5/5 Assessment/Plan: 1. Bilateral CVA: ASA/Lipitor. Permissive HTN. Repeat CT Scan of head January 16. If neg for bleeding, start Eliquis 5 BID 2. DM: Metformin, 500 BID. Will increase to 1000 today; finger sticks BID 3. Aortic Stenosis: Follow 4. Atrial Fibrillation: Toprol XL. Start Eliquis on January [address] of head Negative for bleed 5. DVT Prophylaxis: Heparin 5000 units BID 6. Advance Directives: Full code, is surrogate decision maker 7. HTN: Altace 01/12/20 12:26
[2020-01-12 12:42] LABS: HIV 4th Generation Nonreactive (Nonreactive)
[2020-01-12 13:34] LABS: Hepatitis B Surface Antigen Nonreactive (Nonreactive)
[2020-01-12 13:51] LABS: Hepatitis B Surface Ab Not Immune (Immune)
[2020-01-12 13:52] LABS: Hepatitis C Antibody Negative (Negative)
[2020-01-12] MEDS: metFORMIN* 1,000 MG TAB PO SCH (16:58)
[2020-01-12] MEDS: Atorvastatin* 80 MG TAB PO SCH (16:58)
[2020-01-12] MEDS: Senna TAB 8.6 mg* TAB PO PRN (20:26)
[2020-01-13] MEDS: Insulin LISPRO* 1 UNITS UNIT SUBCUT SCH ×2 (07:42→17:10)
[2020-01-13] MEDS: Aspirin EC TAB* 81 MG TAB.EC PO SCH (08:23)
[2020-01-13] MEDS: Docusate CAP* 100 MG PO SCH ×2 (08:23→21:06)
[2020-01-13] MEDS: Metoprolol Succinate XL TAB* 100 MG PO SCH (08:23)
[2020-01-13] MEDS: Ramipril CAP* 10 MG PO SCH (08:23)
[2020-01-13] MEDS: metFORMIN* 1,000 MG TAB PO SCH ×2 (08:23→17:10)
[2020-01-13] MEDS: Heparin VIAL(*) 5000 UNITS/ML VIAL (FIVE THOUSAND) SUBCUT SCH ×2 (08:24→21:09)
[2020-01-13] MEDS: Potassium Chlor TAB* 20 MEQ TAB.ER PO SCH (08:42)
[2020-01-13] MEDS: Potassium Chloride* LIQUID 20 MEQ/15 ML UDC PO SCH (11:51)
--- NOTE | 2020-01-13 14:36 | PN ---
Progress Note Date of Service: 01/13/20 Note: NARENDRA SANDOVAL was visited. Nursing notes read and reviewed. He has no complaints at the present time. Moving fairly well. Current Medications: Active Medications Generic Name Dose Route Start Last Admin Trade Name Freq PRN Reason Stop Dose Admin Acetaminophen 650 mg 01/08/20 16:15 Tylenol Tab* PO Q6H PRN MILD PAIN or TEMP > 100.4 Aspirin 81 mg 01/09/20 09:00 01/13/20 08:23 Aspirin Ec Tab* PO 81 mg DAILY SHAUNNA Administration Atorvastatin Calcium 80 mg 01/08/20 17:00 01/12/20 16:58 Lipitor* PO 80 mg 1700 SHAUNNA Administration Dextrose 12.5 gm 01/08/20 16:20 D50w Syringe 50 Ml* IV PUSH .FOR FS < 60 - SS PRN FS < 60 Docusate Sodium 100 mg 01/08/20 21:00 01/13/20 08:23 Colace Cap* PO Not Given BID [facility] Heparin Sodium (Porcine) 5,000 units 01/10/20 09:00 01/13/20 08:24 Heparin Vial(*) SUBCUT 5,000 units Q12HR SHAUNNA Administration Insulin Human Lispro 0 - 6 units 01/10/20 08:00 01/13/20 07:42 Humalog* SUBCUT Not Given 0800,1700 [facility] Protocol Magnesium Hydroxide 30 ml 01/08/20 16:15 01/10/20 07:47 Milk Of Magnesia Liq* PO 30 ml Q6H PRN Administration CONSTIPATION Metformin HCl 1,000 mg 01/12/20 17:00 01/13/20 08:23 Glucophage* PO 1,000 mg 0800,1700 SHAUNNA Administration Metoprolol Succinate 100 mg 01/09/20 09:00 01/13/20 08:23 Toprol Xl Tab* PO 100 mg DAILY SHAUNNA Administration Potassium Chloride 20 meq 01/13/20 09:00 01/13/20 11:51 Potassium Chloride Liquid PO Not Given DAILY SHAUNNA Ramipril 10 mg 01/09/20 09:00 01/13/20 08:23 Altace Cap* PO 10 mg DAILY SHAUNNA Administration Senna 2 tab 01/08/20 16:15 01/12/20 20:26 Senokot 8.6 Mg Tab* PO 2 tab BEDTIME PRN Administration CONSTIPATION Vital Signs: Vital Signs Temp Pulse Resp BP Pulse Ox 98.6 F 58 18 156/66 96 01/13/20 05:00 01/13/20 05:00 01/13/20 08:00 01/13/20 05:00 01/13/20 08:00 Exam: GENERAL: No distress HEENT: Peripheral field cuts bilaterally but vision seems to be improving LUNGS: Clear bilaterally HEART: Irregularly irreg rhythm. II/ Systolic murmur ABDOMEN: Soft EXTREMITIES: Normal tone NEUROLOGIC: sensation intact. Aphasia. Motor 5/5 Assessment/Plan: 1. Bilateral CVA: ASA/Lipitor. Permissive HTN. Repeat CT Scan of head TuesdayJanuary 16. If neg for bleeding, start Eliquis 5 BID 2. DM: Metformin, 1,000 mg BID; finger sticks BID 3. Aortic Stenosis: Follow 4. Atrial Fibrillation: Toprol XL. Start Eliquis on January [address] of head Negative for bleed 5. DVT Prophylaxis: Heparin 5000 units BID 6. Advance Directives: Full code, is surrogate decision maker 7. HTN: Altace 01/13/20 14:37
[2020-01-13] MEDS: Atorvastatin* 80 MG TAB PO SCH (17:10)
[2020-01-14] MEDS: Insulin LISPRO* 1 UNITS UNIT SUBCUT SCH (07:35)
[2020-01-14] MEDS ORDERED: Potassium Chlor TAB* 20 MEQ TAB.ER PO SCH (09:40)
[2020-01-14] MEDS: metFORMIN* 1,000 MG TAB PO SCH ×2 (09:50→17:05)
[2020-01-14] MEDS: Aspirin EC TAB* 81 MG TAB.EC PO SCH (09:50)
[2020-01-14] MEDS: Docusate CAP* 100 MG PO SCH ×2 (09:51→20:49)
[2020-01-14] MEDS: Ramipril CAP* 10 MG PO SCH (09:53)
[2020-01-14] MEDS: Metoprolol Succinate XL TAB* 100 MG PO SCH (09:53)
[2020-01-14] MEDS: Heparin VIAL(*) 5000 UNITS/ML VIAL (FIVE THOUSAND) SUBCUT SCH (10:00)
[2020-01-14] MEDS: Potassium Chloride* LIQUID 20 MEQ/15 ML UDC PO SCH (10:05)
--- NOTE | 2020-01-14 16:35 | PN ---
Progress Note Date of Service: 01/14/20 Note: NARENDRA SANDOVAL was visited. Therapy notes read and reviewed. Therapists reported he was much worse with them today than he had been and otherwise had trouble finding his room. Seems about the same with me, but I will order a CT scan of his brain Current Medications: Active Medications Generic Name Dose Route Start Last Admin Trade Name Freq PRN Reason Stop Dose Admin Acetaminophen 650 mg 01/08/20 16:15 Tylenol Tab* PO Q6H PRN MILD PAIN or TEMP > 100.4 Aspirin 81 mg 01/09/20 09:00 01/14/20 09:50 Aspirin Ec Tab* PO 81 mg DAILY SHAUNNA Administration Atorvastatin Calcium 80 mg 01/08/20 17:00 01/13/20 17:10 Lipitor* PO 80 mg 1700 SHAUNNA Administration Dextrose 12.5 gm 01/08/20 16:20 D50w Syringe 50 Ml* IV PUSH .FOR FS < 60 - SS PRN FS < 60 Docusate Sodium 100 mg 01/08/20 21:00 01/14/20 09:51 Colace Cap* PO 100 mg BID SHAUNNA Administration Heparin Sodium (Porcine) 5,000 units 01/10/20 09:00 01/14/20 10:00 Heparin Vial(*) SUBCUT 5,000 units Q12HR SHAUNNA Administration Magnesium Hydroxide 30 ml 01/08/20 16:15 01/10/20 07:47 Milk Of Magnesia Liq* PO 30 ml Q6H PRN Administration CONSTIPATION Metformin HCl 1,000 mg 01/12/20 17:00 01/14/20 09:50 Glucophage* PO 1,000 mg 0800,1700 SHAUNNA Administration Metoprolol Succinate 100 mg 01/09/20 09:00 01/14/20 09:53 Toprol Xl Tab* PO 100 mg DAILY SHAUNNA Administration Ramipril 10 mg 01/09/20 09:00 01/14/20 09:53 Altace Cap* PO 10 mg DAILY SHAUNNA Administration Senna 2 tab 01/08/20 16:15 01/12/20 20:26 Senokot 8.6 Mg Tab* PO 2 tab BEDTIME PRN Administration CONSTIPATION Vital Signs: Vital Signs Temp Pulse Resp BP Pulse Ox 98.6 F 68 20 154/72 96 01/14/20 05:40 01/14/20 05:40 01/14/20 08:00 01/14/20 05:40 01/14/20 05:40 Lab Results: Laboratory Results - last 24 hr 01/12/20 01/12/20 01/13/20 07:49 16:43 07:36 POC Glucose (mg/dL) 113 H 102 H 102 H 01/13/20 16:54 POC Glucose (mg/dL) 87 Exam: GENERAL: No distress HEENT: Peripheral field cuts bilaterally but vision may be slightly worse LUNGS: Clear bilaterally HEART: Irregularly irreg rhythm. II/ Systolic murmur ABDOMEN: Soft EXTREMITIES: Normal tone NEUROLOGIC: sensation intact. Aphasia. Motor 5/5 Assessment/Plan: 1. Bilateral CVA: ASA/Lipitor. Permissive HTN. will get CT now for worsening 2. DM: Metformin, 1,000 mg BID; finger sticks BID 3. Aortic Stenosis: Follow 4. Atrial Fibrillation: Toprol XL. Start Eliquis on January [address] of head Negative for bleed 5. DVT Prophylaxis: Heparin 5000 units BID 6. Advance Directives: Full code, is surrogate decision maker 7. HTN: Altace 01/14/20 16:36
[2020-01-14] MEDS: Atorvastatin* 80 MG TAB PO SCH (17:05)
[2020-01-15] MEDS: Aspirin EC TAB* 81 MG TAB.EC PO SCH (07:34)
[2020-01-15] MEDS: metFORMIN* 1,000 MG TAB PO SCH ×2 (07:34→16:50)
[2020-01-15] MEDS: Metoprolol Succinate XL TAB* 100 MG PO SCH (07:35)
[2020-01-15] MEDS: Ramipril CAP* 10 MG PO SCH (07:35)
[2020-01-15] MEDS: Docusate CAP* 100 MG PO SCH ×2 (07:40→20:21)
--- NOTE | 2020-01-15 12:47 | PMRUTEAM ---
PMRU: Team Meeting Current Status: Physical Therapy: Current Status Current Rolling Status Supervision/Touching Current Supine <-> Sit Status Supervision/Touching Current Sit <-> Stand Status Supervision/Touching Current Bed <-> Chair Status Supervision/Touching Transfer/Bed Mobility None,Rolling Walker Recommended Devices Current Picking Up Object Not attempted Status Current Car Transfer Status Supervision/Touching Current Ambulation Assistance Supervision/Touching Status Ambulation Assistive Device None,Rolling Walker Ambulation Conditions Two or More Turns Current Ambulation Distance 2x150' Current Wheelchair Propulsion Not Applicable Ability Status Current Stair Climbing Status Supervision/Touching Stair Climbing Assistive Left Railing Devices Number of Stairs Climbed 10 Current Curb Assistance Status Partial/Moderate Curb Assistive Devices Railings Objective Comments 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 Pt continues to require close supervision-CGA for functional tasks due to impaired attention and safety awareness. Occupational Therapy: Current Status Current Upper Body Dressing Partial/Moderate Status Current Lower Body Dressing Substantial/Maximal Status Current Footwear Status Supervision/Touching Current Bathing Status Partial/Moderate Current Grooming Status Supervision/Touching Current Toileting Status Supervision/Touching Current Toilet Transfer Status Supervision/Touching Current Eating Status Supervision/Touching Nursing: Current Status Skin Deviations [Left Lateral Abrasion Foot] Skin Deviation Description [ scab healed Left Lateral Foot] Drain Type [Left Lateral Foot] None Bladder Current Status assist with gaitbelt and 1 to bathroom. Bowel Current Status assist with gaitbelt and 1 to bathroom, last BM , colace given. Nutrition Current Status Good appetitie Medication Current Status verbal ques to swallow, given whole in appelsause Rec Therapy: Current Status Summary of Assessment and Recreation Therapy assessment complete and pt is Clinical Impression aware of services. Pt has participated in playing [employer] and appeares to enjoy talking with appeals writer about his family. Pt is also open to continued leisure visits. Treatment Goals Pt will engaged in leisure activities while on the unit, as tolerated Treatment Plan Provide recreation therapy services and encourage involvement Social Work: Current Status Discharge Plan return home with home care service and family support Potential for Family Training pt's is supportive and involved Anticipated Discharge Home Destination Discharge With home care svs and family support Speech: Current Status Assessment Patient is progressing slowly as expected Goals: Physical Therapy: Goals Goals to Be Accomplished in ( 7-10 Days) Goal: Rolling Assistance Independent Goal Supine <-> Sit Status Independent Goal Sit <-> Stand Status Supervision/Touching Goal Bed <-> Chair Status Supervision/Touching Transfer/Bed Mobility Rolling Walker Recommended Devices Goal: Picking Up Object Supervision/Touching Goal: Car Transfer Status Setup or Clean-up Assist Goal: Ambulation Assistance Supervision/Touching Ambulation Assistive Devices None,Rolling Walker Ambulation Distance (ft) 150 Goal: Stairs Assistance Supervision/Touching Stairs Recommended Devices One Rail Number of Stairs 2x5 (10) Goal: Curb Assistance Supervision/Touching Goal: Home Exercise Program Supervision/Touching Assistance Occupational Therapy: Goals Goals to be Completed in (Days 10-14 ) Goal Upper Body Dressing Setup or Clean-up Assist Routine Goal Lower Body Dressing Supervision/Touching Routine Goal Footwear Status Setup or Clean-up Assist Goal Bathing Routine (OT) Supervision/Touching Goal Grooming Routine Setup or Clean-up Assist Goal Toilet Hygiene and Independent Clothing Management Routine Goal Toilet Transfer Routine Independent Goal Functional Transfers for Independent ADL Goal Feeding Routine Setup or Clean-up Assist Nutrition: Goals Intervention Goals 1. Intake will remain adequate to maintain stable wt 2. Adequate glycemic control per inpt parameters ( <180) 3. Pt will maintain regular bowel pattern without constipation/diarrhea Speech: Goals Speech Goal 1 Comprehension Speech Evaluation Status Goal moderate 1 Goal 1 Comments Comprehension Goal, Long-Term: Pt will use compensatory strategies to demonstrate comprehension of paragraph length verbal and written information of moderate complexity, 100% accuracy, given minimal extra time, Independently. Status: progressing as expected Comprehension Goal, Short-Term: Pt will use compensatory strategies to demonstrate comprehension of paragraph length verbal and written information of simple complexity, 90% accuracy, given moderate extra time, and Moderate skilled instruction and cueing. Status: progressing as expected Patient generated appropriate words to fill blank on sentences with 95% accuracy. Speech Goal 2 Expression Speech Goal 2 Evaluation moderate Status Speech Goal 2 Comments Infection Prevention Specialist Goal: Pt will use conversational repair strategies to cooperatively find words in structured conversation, 100% accuracy, given extra time, Independently. Expression, Short-Term Goal #1: Pt will use conversational repair strategies to cooperatively find words in structured language activities, 75% accuracy, given Moderate skilled instruction and cueing. Status: Progressing as expected. UNIT EDUCATOR presented photos of clothing on the [employer] tablet shankar, which allows presentation of a hierarchy of cues and records success. Patient named 16/29 photos (55%) I'ly, and more given cuein by First Letter, 2 by First Sound, and 9 by Phrase Completion (or "story"). Expression, Short-Term Goal #2: Pt will complete automatic language tasks (SARAH, VIOLETTA, Counting, etc. ) w/100% accuracy given min/mod cues. Status: progressing as expected Speech Goal 3 Problem Solving Speech Goal 3 Evaluation moderate Status Speech Goal 3 Comments Problem Solving Goal: Long-Term Goal: Pt will use compensatory strategies to solve moderately complex routine problems, for transfer and mobility safety, adaptive dressing, time and money management; with 100% accuracy, Independently. Status: progressing as expected Problem Solving Goal: Short-Term: Pt will use compensatory strategies to solve simple routine problems, for transfer and mobility safety, adaptive dressing, time and money management; with 80% accuracy, given skilled instruction, Moderate cueing, and extra time. Status: progressing as expected Patient required maxinal verbal and some KOTLIK cueing to name 6 picutres in a left column and find their matches on the right column. Patient is left hand dominant. UNIT EDUCATOR provided printed and verbal skilled instruction in moving his Left pointer finger to the right of pictures to better perceive them with his left visual field to name them. UNIT EDUCATOR maddison illustrations to demonstrate. Patient verbalized understanding and performed with moderate cueing. Given adrawing of half a face, patient recognzed that the other side was blank, and that he saw the left side of the page as dominant. Social Work: Goals Discharge Plan return home with home care service and family support Potential for Family Training pt's is supportive and involved Anticipated Discharge Home Destination Discharge With home care svs and family support Nursing: Goals Bladder Goal independant Bowel Goal Independant Nutrition Goal 100% on all meals. Medication Goal supervised by spouse. Care Plan: Care Plan ADL's - Improve/Maintain Start: 01/08/20 16:43 Freq: DAILY@0700,1900 Status: Active Target: 01/09/20 Protocol: Activity Type Activity Date Activity User E-Sign Co-Sign Detail Recorded Client Recorded Date Recorded By Document 01/14/20 14:33 [id number] 01/14/20 14:33 [id number] 01/14/20 14:33 PMRU Outcome: ADL's/ADL Transfers Orders/Interventions Occupational Therapy Evaluation & Treatment Communication Tool in Patient Room Device Yes Address Deficits Secondary To: Minor CVA Patient to receive OT 5x/wk for 60-120 Therex min/day Self Care Management Group Therapy Neuromuscular ReEducation UE/LE ADL's with Assist Yes: supervision/ setup ADL Transfers with Assist Yes: independent Toileting: Transfers,Clothing Management Yes: ,Hygeine w/Assist independent Light Kitchen/Laundry w/Assist No Progression Toward Outcome/Goals Not Progressing Lack of Progression Comment Pt demonstrates increased difficulty following commands and increased visiual deficits. Ns staff and MD notified. Cardiovascular- Improve/Maintain Start: 01/08/20 18:28 Freq: DAILY@0700,1900 Status: Active Target: 01/22/20 Protocol: Activity Type Activity Date Activity User E-Sign Co-Sign Detail Recorded Client Recorded Date Recorded By Document 01/15/20 09:52 [id number] 01/15/20 09:57 [id number] 01/15/20 09:52 PMRU Outcome: Cardiovascular Vital Signs q Shift for 48hrs Then BID Yes Daily Weight Ordered No Current Cardiovascular Outcome/Goal Maintain/ Achieve Baseline HR, BP , Perfusion Progression Toward Outcome/Goal Progressing Communication-Improve/Maintain Start: 01/08/20 18:28 Freq: DAILY@0700,1900 Status: Active Target: 01/22/20 Protocol: Activity Type Activity Date Activity User E-Sign Co-Sign Detail Recorded Client Recorded Date Recorded By Document 01/15/20 00:19 [id number] 01/15/20 00:21 [id number] 01/15/20 00:19 PMRU Outcome: Communication/Cognitive Status Current Communication Outcome/Goals Makes Needs Known Effectively Other Other Communication Outcomes/Goals Comprehension Goal, Long-Term : Pt will use compensatory strategies to demonstrate comprehension of paragraph length verbal and written information of moderate complexity, 100 % accuracy, given minimal extra time, Independently. Comprehension Goal, Short- Term: Pt will use compensatory strategies to demonstrate comprehension of paragraph length verbal and written information of simple complexity, 90% accuracy, given moderate extra time, and Moderate skilled instruction and cueing. Status: Progressing as expected Expression, Intermediate Goal: Pt will use conversational repair strategies to cooperatively find words in structured conversation, 100% accuracy, given extra time, Independently. Expression Goal , Short-Term #1 : Pt will use conversational repair strategies to cooperatively find words in structured language activities, 75% accuracy, given Moderate skilled instruction and cueing. Expression Goal , Short-Term #2 : Pt will complete automatic language tasks (SARAH, VIOLETTA, Counting, etc.) w/100% accuracy given min/mod cues. Status: Progressing as expected Problem Solving Goal: Long- Term Goal: Pt will use compensatory strategies to solve moderately complex routine problems, for transfer and mobility safety , adaptive dressing, time and money management; with 100% accuracy, Independently. Problem Solving Goal: Short- Term: Pt will use compensatory strategies to solve simple routine problems, for transfer and mobility safety , adaptive dressing, time and money management; with 80% accuracy, given skilled instruction, Moderate cueing , and extra time. Status: Progressing as expected Progression Toward Outcomes/Goals Progressing DVT Prophylaxis- Improve/Maintain Start: 01/08/20 18:28 Freq: DAILY@07,1900 Status: Complete Target: 01/22/20 Protocol: Activity Type Activity Date Activity User E-Sign Co-Sign Detail Recorded Client Recorded Date Recorded By Document 01/15/20 09:52 [id number] 01/15/20 09:57 [id number] 01/15/20 09:52 PMRU Outcome: DVT Prophylaxis Current DVT Outcome/Goals Complies with DVT Prophylaxis /Treatment TEDS Stockings on Every AM, Off at HS Progression Toward Outcome/Goals Progressing Discharge Planning - Improve/Maintain Start: 01/08/20 18:28 Freq: DAILY@07,1900 Status: Active Target: 01/22/20 Protocol: Activity Type Activity Date Activity User E-Sign Co-Sign Detail Recorded Client Recorded Date Recorded By Document 01/15/20 09:52 [id number] [id number] 01/15/20 09:57 [id number] 01/15/20 09:52 PMRU Outcome: Discharge Planning Update Patient Family Yes Current Discharge Planning Outcome/Goals Homecare Referral - See Comment Progression Toward Outcome/Goals Progressing Education-Improve/Maintain Start: 01/08/20 18:28 Freq: DAILY@0700,1900 Status: Active Target: 01/22/20 Protocol: Activity Type Activity Date Activity User E-Sign Co-Sign Detail Recorded Client Recorded Date Recorded By Document 01/15/20 09:52 [id number] 01/15/20 09:57 [id number] 01/15/20 09:52 PMRU Outcome: Education Current Education Outcome/Goals Demonstrate/ Verbalize Understanding of Written Discharge Instructions Demonstrates Skills Progression Toward Outcome/Goals Progressing /GI-Improve/Maintain Start: 01/08/20 18:28 Freq: DAILY@07,1900 Status: Active Target: 01/22/20 Protocol: Activity Type Activity Date Activity User E-Sign Co-Sign Detail Recorded Client Recorded Date Recorded By Document 01/15/20 09:52 [id number] 01/15/20 09:57 [id number] 01/15/20 09:52 PMRU Outcome: Genitourinary/ Gastrointestinal Current Gastrointestinal Outcome/Goals Maintain/ Achieve Bowel Regularity in Accordance with Pt's Baseline Remain Free of Emesis Prevent Constipation Progression Toward Outcome/Goals Progressing Current Genitourinary Outcome/Goals Maintain/ Achieve Urinary Continence Maintain/ Achieve Adequate Urinary Output Remain Free of Hospital- Acquired UTI Progression Toward Outcome/Goals Progressing Medication Administration Start: 01/08/20 18:28 Freq: DAILY@699,1899 Status: Active Target: 01/22/20 Protocol: Activity Type Activity Date Activity User E-Sign Co-Sign Detail Recorded Client Recorded Date Recorded By Document 01/15/20 09:52 [id number] 01/15/20 09:57 [id number] 01/15/20 09:52 PMRU Outcome: Medication Administration Assess Patient Knowledge/Teach Med Yes Education for all Meds Current Bucket Wash Operator Outcome/Goals Patient Independent with Medication Administration at Home Family/ Caregiver Administer Medications at Home Demonstrates Understanding Progression Towards Outcome/Goals Progressing Is Patient Going Home on Lovenox? No Metabolic Status- Improve/Maintain Start: 01/08/20 18:28 Freq: DAILY@699,1900 Status: Complete Target: 01/22/20 Protocol: Activity Type Activity Date Activity User E-Sign Co-Sign Detail Recorded Client Recorded Date Recorded By Document 01/15/20 09:52 [id number] 01/15/20 09:57 [id number] 01/15/20 09:52 PMRU Outcome: Metabolic Status Have Fingersticks Been Ordered No Current Metabolic Status Outcome/Goals Maintain/ Improve Metabolic Status Demonstrate Knowledge of Prevention/ Treatment of Metabolic Imbalances Progression Toward Outcome/Goals Goals Met Outcome/Goals Met Maintain/ Improve Metabolic Status Demonstrate Knowledge of Prevention/ Treatment of Metabolic Imbalances Outcome/Goals Met Comment FS d/c 01/14/20 per MD order. Mobility- Improve/Maintain Start: 01/08/20 17:49 Freq: DAILY@699,1899 Status: Active Target: 01/09/20 Protocol: Activity Type Activity Date Activity User E-Sign Co-Sign Detail Recorded Client Recorded Date Recorded By Document 01/14/20 10:37 [id number] 01/14/20 10:37 [id number] 01/14/20 10:37 PMRU Outcome: Mobility Physical Therapy Evaluation and Yes Treatment Activity OOB with Assistance Yes Device Yes: FWW Assistance Yes: Min A Patient to be seen 5x/wk for 60-120 min/ Therex day for: Mobility Training Gait Training Balance Current Mobility Outcome/Goals Maintain/ Achieve Baseline Mobility Status Improve Mobility Status Demonstrates Proper Use of Assistive Devices Free from Complications of Immobility Progression Toward Outcome/Goals Progressing Bed Mobility Yes: Ind Transfers Yes: Ind with FWW Gait x ft Yes: Ind with FWW x150ft W/C Mobility x ft No Up/Down Stairs Yes: Supervision x1 flight, 2 rails With HEP Yes Neurological- Improve/Maintain Start: 01/08/20 18:28 Freq: DAILY@699,1899 Status: Active Target: 01/22/20 Protocol: Activity Type Activity Date Activity User E-Sign Co-Sign Detail Recorded Client Recorded Date Recorded By Document 01/15/20 09:52 [id number] [id number] 01/15/20 09:57 [id number] 01/15/20 09:52 PMRU Outcome: Neurological Weakness/Aphasia Aphasia Current Neurological Outcome/Goals Maintain/ Achieve Baseline Neurological Status Improve Neurological Status Prevent Avoidable Neurological Decline Maintain/ Improve Strength/ROM Progression Toward Outcome/Goals Progressing Rec Therapy- Improve/Maintain Start: 01/09/20 16:25 Freq: DAILY@699,1899 Status: Active Target: 01/15/20 Protocol: Activity Type Activity Date Activity User E-Sign Co-Sign Detail Recorded Client Recorded Date Recorded By Document 01/10/20 16:51 [id number] 01/10/20 16:53 [id number] 01/10/20 16:51 PMRU Outcome: Recreation Therapy Current Rec Ther Outcome/Goals Complete Rec Therapy Assessment Meet with Patient Regularly for Support Encourage Leisure Involvement Progression Toward Outcome/Goals Progressing Lack of Progression Comment Met with pt and played dominoes, which he appeared to enjoy playing. Outcome/Goals Met Complete Rec Therapy Assessment Safety- Improve/Maintain Start: 01/08/20 13:59 Freq: DAILY@0700,1900 Status: Active Target: 01/22/20 Protocol: Activity Type Activity Date Activity User E-Sign Co-Sign Detail Recorded Client Recorded Date Recorded By Document 01/15/20 09:52 [id number] [email or web address] 01/15/20 09:57 [id number] 01/15/20 09:52 PMRU Outcome: Safety Current Safety Outcome/Goals Remain Free of Injury or Harm Cooperates with Safety Measures for Least Restrictive Environment Prevent Falls/ Injury Progression Toward Outcome/Goals Progressing - Interdisciplinary Staff Present City Bus Driver/Social Work Staff Present: Joi Mo LMSW Nursing Staff Present: Luna Brar RN OT Staff Present: Pina Mathew PT Staff Present: Vivienne Sapp UNIT EDUCATOR Staff Present: Roldan Lowery Medicine Note: Length of Stay: 1 week Anticipated Discharge Destination: Home Tentative Discharge Date: 01/22/20 Discharged to: Home
[2020-01-15] MEDS: Atorvastatin* 80 MG TAB PO SCH (16:50)
--- NOTE | 2020-01-15 17:17 | PN ---
PROGRESS NOTE: DATE OF SERVICE: 01/15/20. PATIENT OF: Dr. Main. HISTORY: This is an 79-year-old man who I am asked to evaluate for an abnormal CT scan. He had been recently seen by Dr. 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 He was begun on aspirin and repeat CT scan was going to be done on , and if it was negative for hemorrhage, he was going to be started on Eliquis. However, he has since been admitted to the rehab center and they note that he was more disoriented yesterday than it was the case, but when Dr. Main saw him, he thought he was back to his baseline. A repeat CT scan was obtained and showed unchanged ischemic stroke, but in his right occipitoparietal area, there appeared to be a small amount of petechial hemorrhage which was new from 01/07/20 and was not clearly noted on the patient' s MRI scan. The nurse today notes that he is back to his baseline and Dr. Main has not seen any clinical difference on him. MEDICATIONS: His heparin was stopped yesterday, but he remains on: 1. Aspirin 81 mg daily. 2. Lipitor 80 mg daily. 3. Colace 100 mg b.i.d. 4. Metformin 1000 mg twice a day. 5. Metoprolol 100 mg daily. 6. Altace 10 mg daily. 7. Senna 2 tabs p.r.n. PHYSICAL EXAMINATION: Temperature 97.5, pulse 67, respirations 16, blood pressure 164/70. He was confused as to his age. He could name some objects and he spoke in short sentences. He had decreased vision in his left lower quadrant primarily. He moved all extremities with power and symmetrically. Strength was 5/5 bilaterally. Reflexes were symmetric with trace ankle jerks. Toes were equivocal. Chest: Clear. Cardiovascular: Irregular rate and rhythm. Abdomen was soft with positive bowel sounds. IMPRESSION AND PLAN: I reviewed his CT scan from yesterday, his CT scan from admission, and also his MRI scan. He does have stroke as described on report including bilateral occipital stroke that is new as well as some right parietal new stroke. The radiologist's report is a little confusing. What I am seeing is some petechial hemorrhage in his right parietooccipital stroke. It is possible that this could be luxury perfusion instead secondary, sometimes a normal pattern following a stroke that does not indicate hemorrhage, but it would be hard to differentiate and I do agree with radiologist that a small hemorrhage is possible. Clinically, he is unchanged. It is unclear when this hemorrhage happened, but I would not have him on aspirin at this point either and I would not begin Eliquis on . Dr. Main will be rechecking another CT scan in a week and sooner if there is clinical deterioration. Thank you for sharing his case. [id number]/[facility] #: [id number] MARY
--- NOTE | 2020-01-15 18:02 | PN ---
Progress Note Date of Service: 01/15/20 Note: NARENDRA SANDOVAL was visited. Therapy notes read and reviewed. He was discussed in interdiscipplinary team rounds. His vision was slightly better today. His CT scan was reviewed and showed possible expansion of hemorrhage within area of infarct. I have stopped his Heparin and his ASA 81 mg. Will need repeat CT scan in 1 week Current Medications: Active Medications Generic Name Dose Route Start Last Admin Trade Name Freq PRN Reason Stop Dose Admin Acetaminophen 650 mg 01/08/20 16:15 Tylenol Tab* PO Q6H PRN MILD PAIN or TEMP > 100.4 Atorvastatin Calcium 80 mg 01/08/20 17:00 01/15/20 16:50 Lipitor* PO 80 mg 1700 SHAUNNA Administration Dextrose 12.5 gm 01/08/20 16:20 D50w Syringe 50 Ml* IV PUSH .FOR FS < 60 - SS PRN FS < 60 Docusate Sodium 100 mg 01/08/20 21:00 01/15/20 07:40 Colace Cap* PO 100 mg BID SHAUNNA Administration Magnesium Hydroxide 30 ml 01/08/20 16:15 01/10/20 07:47 Milk Of Magnesia Liq* PO 30 ml Q6H PRN Administration CONSTIPATION Metformin HCl 1,000 mg 01/12/20 17:00 01/15/20 16:50 Glucophage* PO 1,000 mg 0800,1700 SHAUNNA Administration Metoprolol Succinate 100 mg 01/09/20 09:00 01/15/20 07:35 Toprol Xl Tab* PO 100 mg DAILY SHAUNNA Administration Ramipril 10 mg 01/09/20 09:00 01/15/20 07:35 Altace Cap* PO 10 mg DAILY SHAUNNA Administration Senna 2 tab 01/08/20 16:15 01/12/20 20:26 Senokot 8.6 Mg Tab* PO 2 tab BEDTIME PRN Administration CONSTIPATION Vital Signs: Vital Signs Temp Pulse Resp BP Pulse Ox 97.5 F 67 16 164/70 96 01/15/20 04:44 01/15/20 04:44 01/15/20 04:44 01/15/20 04:44 01/15/20 04:44 Lab Results: Laboratory Results - last 24 hr 01/14/20 07:33 POC Glucose (mg/dL) 98 Exam: GENERAL: No distress HEENT: Peripheral field cuts bilaterally but vision may be slightly worse LUNGS: Clear bilaterally HEART: Irregularly irreg rhythm. II/ Systolic murmur ABDOMEN: Soft EXTREMITIES: Normal tone NEUROLOGIC: sensation intact. Aphasia. Motor 5/5 Assessment/Plan: 1. Bilateral CVA: Lipitor. Permissive HTN. CT showed possible area of hemorrhage within infarct; stop ASA, repeat CT 01/21 2. DM: Metformin, 1,000 mg BID 3. Aortic Stenosis: Follow 4. Atrial Fibrillation: Toprol XL. Start Eliquis on January [address] of head Negative for bleed 5. DVT Prophylaxis: Heparin stopped 6. Advance Directives: Full code, is surrogate decision maker 7. HTN: Altace 01/15/20 18:02
[2020-01-15] MEDS: Senna TAB 8.6 mg* TAB PO PRN (20:21)
[2020-01-16 05:12] LABS: ABS Basophils 0.1 10^3/ul (0-0.2); ABS Eosinophils 0.2 10^3/ul (0-0.6); ABS Lymphocytes 1.8 10^3/ul (1.0-4.8); ABS Monocytes 0.9 10^3/ul (0-0.8); ABS Neutrophils 5.9 10^3/ul (1.5-7.7); Eosinophil % 2.3 %; Hematocrit 36 % (42-52); Hemoglobin 12.3 g/dL (14.0-18.0); Lymphocyte % 20.3 %; Mean Corpuscular HGB Conc 35 g/dL (31-36); Mean Corpuscular Hemoglobin 29 pg (27-31); Mean Corpuscular Volume 83 fL (80-94); Mean Platelet Volume 8.5 fL (7.4-10.4); Nucleated Red Blood Cells % 0.1; Platelet Count 219 10^3/uL (150-450); Red Blood Count 4.31 10^6 /uL (4.18-5.48); Red Cell Distribution Width 14 % (10-15); White Blood Count 8.9 10^3/uL (3.5-10.8)
[2020-01-16 05:28] LABS: Albumin 3.9 g/dL (3.2-5.2); Albumin/Globulin Ratio 1.6 (1-3); Calcium 9.7 mg/dL (8.6-10.3); EGFR Non-African American 48.8 (>60); Globulin 2.4 g/dL (2-4); Potassium 3.8 mmol/L (3.5-5.0); Total Bilirubin 0.8 mg/dL (0.2-1.0); Total Protein 6.3 g/dL (6.4-8.9)
[2020-01-16] MEDS: metFORMIN* 1,000 MG TAB PO SCH ×2 (08:51→17:02)
[2020-01-16] MEDS: Metoprolol Succinate XL TAB* 100 MG PO SCH (08:51)
[2020-01-16] MEDS: Docusate CAP* 100 MG PO SCH ×2 (08:51→20:48)
[2020-01-16] MEDS: Ramipril CAP* 10 MG PO SCH (08:52)
[2020-01-16] MEDS: Atorvastatin* 80 MG TAB PO SCH (17:02)
--- NOTE | 2020-01-16 18:14 | PN ---
Progress Note Date of Service: 01/16/20 Note: NARENDRA SANDOVAL was visited. Therapy notes read and reviewed. He did okay today and was able to recognize me, indicating his vision is slightly better. Off ASA and s/q heparin Current Medications: Active Medications Generic Name Dose Route Start Last Admin Trade Name Freq PRN Reason Stop Dose Admin Acetaminophen 650 mg 01/08/20 16:15 Tylenol Tab* PO Q6H PRN MILD PAIN or TEMP > 100.4 Atorvastatin Calcium 80 mg 01/08/20 17:00 01/16/20 17:02 Lipitor* PO 80 mg 1700 SHAUNNA Administration Dextrose 12.5 gm 01/08/20 16:20 D50w Syringe 50 Ml* IV PUSH .FOR FS < 60 - SS PRN FS < 60 Docusate Sodium 100 mg 01/08/20 21:00 01/16/20 08:51 Colace Cap* PO 100 mg BID SHAUNNA Administration Magnesium Hydroxide 30 ml 01/08/20 16:15 01/10/20 07:47 Milk Of Magnesia Liq* PO 30 ml Q6H PRN Administration CONSTIPATION Metformin HCl 1,000 mg 01/12/20 17:00 01/16/20 17:02 Glucophage* PO 1,000 mg 0800,1700 SHAUNNA Administration Metoprolol Succinate 100 mg 01/09/20 09:00 01/16/20 08:51 Toprol Xl Tab* PO 100 mg DAILY SHAUNNA Administration Ramipril 10 mg 01/09/20 09:00 01/16/20 08:52 Altace Cap* PO 10 mg DAILY SHAUNNA Administration Senna 2 tab 01/08/20 16:15 01/15/20 20:21 Senokot 8.6 Mg Tab* PO 2 tab BEDTIME PRN Administration CONSTIPATION Vital Signs: Vital Signs Temp Pulse Resp BP Pulse Ox 97.3 F 78 24 178/75 96 01/16/20 15:58 01/16/20 15:58 01/16/20 15:58 01/16/20 15:58 01/16/20 17:15 Lab Results: Laboratory Results - last 24 hr 01/16/20 01/16/20 04:11 04:11 WBC 8.9 RBC 4.31 Hgb 12.3 L Hct 36 L MCV 83 MCH 29 MCHC 35 RDW 14 Plt Count 219 MPV 8.5 Neut % (Auto) 66.7 Lymph % (Auto) 20.3 [place] % (Auto) 10.0 Eos % (Auto) 2.3 Baso % (Auto) 0.7 Absolute Neuts (auto) 5.9 Absolute Lymphs (auto) 1.8 Absolute Monos (auto) 0.9 H Absolute Eos (auto) 0.2 Absolute Basos (auto) 0.1 Absolute Nucleated RBC 0.0 Nucleated RBC % 0.1 Sodium 137 Potassium 3.8 Chloride 103 Carbon Dioxide 26 Anion Gap 8 BUN 28 H Creatinine 1.40 H Est GFR ( Amer) 59.0 Est GFR (Non-Af Amer) 48.8 BUN/Creatinine Ratio 20.0 Glucose 86 Calcium 9.7 Total Bilirubin 0.80 AST 23 ALT 16 Alkaline Phosphatase 77 Total Protein 6.3 L Albumin 3.9 Globulin 2.4 Albumin/Globulin Ratio 1.6 Exam: GENERAL: No distress HEENT: Peripheral field cuts bilaterally but vision may be slightly worse LUNGS: Clear bilaterally HEART: Irregularly irreg rhythm. II/ Systolic murmur ABDOMEN: Soft EXTREMITIES: Normal tone NEUROLOGIC: sensation intact. Aphasia. Motor 5/5 Assessment/Plan: 1. Bilateral CVA: Lipitor. Permissive HTN. CT showed possible area of hemorrhage within infarct; stop ASA, repeat CT 01/21 2. DM: Metformin, 1,000 mg BID 3. Aortic Stenosis: Follow 4. Atrial Fibrillation: Toprol XL. Start Eliquis on January [address] of head Negative for bleed 5. DVT Prophylaxis: Heparin stopped 6. Advance Directives: Full code, is surrogate decision maker 7. HTN: Altace 01/16/20 18:15
[2020-01-16] MEDS: Senna TAB 8.6 mg* TAB PO PRN (20:48)
[2020-01-17] MEDS: metFORMIN* 1,000 MG TAB PO SCH ×2 (08:31→17:13)
[2020-01-17] MEDS: Metoprolol Succinate XL TAB* 100 MG PO SCH (08:31)
[2020-01-17] MEDS: Docusate CAP* 100 MG PO SCH ×2 (08:31→20:15)
[2020-01-17] MEDS: Ramipril CAP* 10 MG PO SCH (08:32)
[2020-01-17] MEDS: Atorvastatin* 80 MG TAB PO SCH (17:13)
--- NOTE | 2020-01-17 17:42 | PN ---
Progress Note Date of Service: 01/17/20 Note: NARENDRA SANDOVAL was visited. Therapy notes read and reviewed. Was able to see me from down [place]. He is doing ok. His will come in for discharge training tomorrow. Current Medications: Active Medications Generic Name Dose Route Start Last Admin Trade Name Freq PRN Reason Stop Dose Admin Acetaminophen 650 mg 01/08/20 16:15 Tylenol Tab* PO Q6H PRN MILD PAIN or TEMP > 100.4 Atorvastatin Calcium 80 mg 01/08/20 17:00 01/17/20 17:13 Lipitor* PO 80 mg 1700 SHAUNNA Administration Dextrose 12.5 gm 01/08/20 16:20 D50w Syringe 50 Ml* IV PUSH .FOR FS < 60 - SS PRN FS < 60 Docusate Sodium 100 mg 01/08/20 21:00 01/17/20 08:31 Colace Cap* PO 100 mg BID SHAUNNA Administration Magnesium Hydroxide 30 ml 01/08/20 16:15 01/10/20 07:47 Milk Of Magnesia Liq* PO 30 ml Q6H PRN Administration CONSTIPATION Metformin HCl 1,000 mg 01/12/20 17:00 01/17/20 17:13 Glucophage* PO 1,000 mg 0800,1700 SHAUNNA Administration Metoprolol Succinate 100 mg 01/09/20 09:00 01/17/20 08:31 Toprol Xl Tab* PO 100 mg DAILY SHAUNNA Administration Ramipril 10 mg 01/09/20 09:00 01/17/20 08:32 Altace Cap* PO 10 mg DAILY SHAUNNA Administration Senna 2 tab 01/08/20 16:15 01/16/20 20:48 Senokot 8.6 Mg Tab* PO 2 tab BEDTIME PRN Administration CONSTIPATION Vital Signs: Vital Signs Temp Pulse Resp BP Pulse Ox 97.8 F 63 18 147/66 95 01/17/20 16:24 01/17/20 16:24 01/17/20 17:17 01/17/20 16:24 01/17/20 17:17 Exam: GENERAL: No distress HEENT: Peripheral field cuts bilaterally LUNGS: Clear bilaterally HEART: Irregularly irreg rhythm. II/ Systolic murmur ABDOMEN: Soft EXTREMITIES: Normal tone NEUROLOGIC: sensation intact. Aphasia. Motor 5/5 Assessment/Plan: 1. Bilateral CVA: Lipitor. Permissive HTN. CT showed possible area of hemorrhage within infarct; stop ASA, repeat CT 01/21 2. DM: Metformin, 1,000 mg BID 3. Aortic Stenosis: Follow 4. Atrial Fibrillation: Toprol XL. Start Eliquis on January [address] of head Negative for bleed 5. DVT Prophylaxis: Heparin stopped 6. Advance Directives: Full code, is surrogate decision maker 7. HTN: Altace 01/17/20 17:43
[2020-01-18] MEDS: Docusate CAP* 100 MG PO SCH ×2 (08:40→20:50)
[2020-01-18] MEDS: metFORMIN* 1,000 MG TAB PO SCH ×2 (08:40→17:40)
[2020-01-18] MEDS: Ramipril CAP* 10 MG PO SCH (08:40)
[2020-01-18] MEDS: Metoprolol Succinate XL TAB* 100 MG PO SCH (08:40)
--- NOTE | 2020-01-18 11:44 | PN ---
Progress Note Date of Service: 01/18/20 Note: NARENDRA SANDOVAL was visited. Nursing and therapy notes read and reviewed. No chest pain, shortness of breath or abdominal pain. in today for discharge training, which went well per OT. He is not sure if his vision overall is improving. Prior to training expressed some desire to hire help for home. Current Medications: Active Medications Generic Name Dose Route Start Last Admin Trade Name Freq PRN Reason Stop Dose Admin Acetaminophen 650 mg 01/08/20 16:15 Tylenol Tab* PO Q6H PRN MILD PAIN or TEMP > 100.4 Atorvastatin Calcium 80 mg 01/08/20 17:00 01/17/20 17:13 Lipitor* PO 80 mg 1700 SHAUNNA Administration Dextrose 12.5 gm 01/08/20 16:20 D50w Syringe 50 Ml* IV PUSH .FOR FS < 60 - SS PRN FS < 60 Docusate Sodium 100 mg 01/08/20 21:00 01/18/20 08:40 Colace Cap* PO 100 mg BID SHAUNNA Administration Magnesium Hydroxide 30 ml 01/08/20 16:15 01/10/20 07:47 Milk Of Magnesia Liq* PO 30 ml Q6H PRN Administration CONSTIPATION Metformin HCl 1,000 mg 01/12/20 17:00 01/18/20 08:40 Glucophage* PO 1,000 mg 0800,1700 SHAUNNA Administration Metoprolol Succinate 100 mg 01/09/20 09:00 01/18/20 08:40 Toprol Xl Tab* PO 100 mg DAILY SHAUNNA Administration Ramipril 10 mg 01/09/20 09:00 01/18/20 08:40 Altace Cap* PO 10 mg DAILY SHAUNNA Administration Senna 2 tab 01/08/20 16:15 01/16/20 20:48 Senokot 8.6 Mg Tab* PO 2 tab BEDTIME PRN Administration CONSTIPATION Vital Signs: Vital Signs Temp Pulse Resp BP Pulse Ox 97.3 F 61 16 160/90 95 01/18/20 05:14 01/18/20 05:14 01/18/20 05:14 01/18/20 05:11 01/18/20 05:14 Exam: GENERAL: No acute distress. Alert and appropriate. HEENT: Peripheral field deficits bilaterally but he can see some movement LUNGS: Clear to auscultation bilaterally HEART: Irregularly irregular rhythm. ABDOMEN: Soft, + bowel sounds, non-tender, non-distended EXTREMITIES: No edema. NEUROLOGIC: CN III-XII intact. BUE/BLE motor 5/5 with sensation intact. Aphasia. Assessment/Plan: 1. 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 Permissive HTN with carotid and aortic stenosis. follow up CT showed possible area of hemorrhage within infarct; stopped ASA with plan to repeat CT 01/21 and possibly start eliquis. Discussed with today. 2. DM: Metformin, 1,000 mg BID 3. Aortic Stenosis: Follow clinically. 4. Atrial Fibrillation: Toprol XL. Start Eliquis on January [address] of head Negative for bleed 5. DVT Prophylaxis: Heparin stopped 6. Advance Directives: Full code, is surrogate decision maker 7. HTN: Altace 8. Estimated LOS: 01/22/2020 01/18/20 11:41
[2020-01-18] MEDS: Atorvastatin* 80 MG TAB PO SCH (17:40)
--- NOTE | 2020-01-19 08:23 | PN ---
Progress Note Date of Service: 01/19/20 Note: NARENDRA SANDOVAL was visited. Nursing and therapy notes read and reviewed. No chest pain, shortness of breath or abdominal pain. Enjoyed time with Ana Rosa Gunn yesterday for training. Current Medications: Active Medications Generic Name Dose Route Start Last Admin Trade Name Freq PRN Reason Stop Dose Admin Acetaminophen 650 mg 01/08/20 16:15 Tylenol Tab* PO Q6H PRN MILD PAIN or TEMP > 100.4 Atorvastatin Calcium 80 mg 01/08/20 17:00 01/18/20 17:40 Lipitor* PO 80 mg 1700 SHAUNNA Administration Dextrose 12.5 gm 01/08/20 16:20 D50w Syringe 50 Ml* IV PUSH .FOR FS < 60 - SS PRN FS < 60 Docusate Sodium 100 mg 01/08/20 21:00 01/18/20 20:50 Colace Cap* PO 100 mg BID SHAUNNA Administration Magnesium Hydroxide 30 ml 01/08/20 16:15 01/10/20 07:47 Milk Of Magnesia Liq* PO 30 ml Q6H PRN Administration CONSTIPATION Metformin HCl 1,000 mg 01/12/20 17:00 01/18/20 17:40 Glucophage* PO 1,000 mg 0800,1700 SHAUNNA Administration Metoprolol Succinate 100 mg 01/09/20 09:00 01/18/20 08:40 Toprol Xl Tab* PO 100 mg DAILY SHAUNNA Administration Ramipril 10 mg 01/09/20 09:00 01/18/20 08:40 Altace Cap* PO 10 mg DAILY SHAUNNA Administration Senna 2 tab 01/08/20 16:15 01/16/20 20:48 Senokot 8.6 Mg Tab* PO 2 tab BEDTIME PRN Administration CONSTIPATION Vital Signs: Vital Signs Temp Pulse Resp BP Pulse Ox 98.5 F 73 16 154/86 97 01/19/20 05:42 01/19/20 05:42 01/19/20 05:42 01/19/20 05:42 01/19/20 05:42 Exam: GENERAL: No acute distress. Alert and appropriate. HEENT: Peripheral field deficits bilaterally but he can see some movement LUNGS: Clear to auscultation bilaterally HEART: Irregularly irregular rhythm. ABDOMEN: Soft, + bowel sounds, non-tender, non-distended EXTREMITIES: No edema. NEUROLOGIC: CN III-XII intact. BUE/BLE motor 5/5 with sensation intact. Aphasia. Assessment/Plan: 1. 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 Permissive HTN with carotid and aortic stenosis. follow up CT showed possible area of hemorrhage within infarct; stopped ASA with plan to repeat CT 01/21 and possibly start eliquis. Discussed with today. 2. DM: Metformin, 1,000 mg BID 3. Aortic Stenosis: Follow clinically. 4. Atrial Fibrillation: Toprol XL. Start Eliquis on January [address] of head Negative for bleed 5. DVT Prophylaxis: Heparin stopped 6. Advance Directives: Full code, is surrogate decision maker 7. HTN: Altace 8. Estimated LOS: 01/22/2020. 01/19/20 08:23
[2020-01-19] MEDS: Ramipril CAP* 10 MG PO SCH (08:44)
[2020-01-19] MEDS: metFORMIN* 1,000 MG TAB PO SCH ×2 (08:44→17:05)
[2020-01-19] MEDS: Metoprolol Succinate XL TAB* 100 MG PO SCH (08:45)
[2020-01-19] MEDS: Docusate CAP* 100 MG PO SCH ×2 (08:45→20:30)
[2020-01-19] MEDS: Atorvastatin* 80 MG TAB PO SCH (17:05)
[2020-01-20] MEDS: Docusate CAP* 100 MG PO SCH (08:49)
[2020-01-20] MEDS: metFORMIN* 1,000 MG TAB PO SCH ×2 (08:51→17:42)
[2020-01-20] MEDS: Ramipril CAP* 10 MG PO SCH (08:51)
[2020-01-20] MEDS: Metoprolol Succinate XL TAB* 100 MG PO SCH (08:51)
--- NOTE | 2020-01-20 10:22 | PN ---
Progress Note Date of Service: 01/20/20 Note: NARENDRA SANDOVAL was visited. Nursing notes read and reviewed. No chest pain or shortness of breath. He has has a poor appetite the last few days and had diarrhea twice in the last 24hrs. No nausea or vomiting. Some abdominal soreness. Current Medications: Active Medications Generic Name Dose Route Start Last Admin Trade Name Freq PRN Reason Stop Dose Admin Acetaminophen 650 mg 01/08/20 16:15 Tylenol Tab* PO Q6H PRN MILD PAIN or TEMP > 100.4 Atorvastatin Calcium 80 mg 01/08/20 17:00 01/19/20 17:05 Lipitor* PO 80 mg 1700 SHAUNNA Administration Dextrose 12.5 gm 01/08/20 16:20 D50w Syringe 50 Ml* IV PUSH .FOR FS < 60 - SS PRN FS < 60 Docusate Sodium 100 mg 01/08/20 21:00 01/20/20 08:49 Colace Cap* PO Not Given BID SHAUNNA Magnesium Hydroxide 30 ml 01/08/20 16:15 01/10/20 07:47 Milk Of Magnesia Liq* PO 30 ml Q6H PRN Administration CONSTIPATION Metformin HCl 1,000 mg 01/12/20 17:00 01/20/20 08:51 Glucophage* PO 1,000 mg 0800,1700 SHAUNNA Administration Metoprolol Succinate 100 mg 01/09/20 09:00 01/20/20 08:51 Toprol Xl Tab* PO 100 mg DAILY SHAUNNA Administration Ramipril 10 mg 01/09/20 09:00 01/20/20 08:51 Altace Cap* PO 10 mg DAILY SHAUNNA Administration Senna 2 tab 01/08/20 16:15 01/16/20 20:48 Senokot 8.6 Mg Tab* PO 2 tab BEDTIME PRN Administration CONSTIPATION Vital Signs: Vital Signs Temp Pulse Resp BP Pulse Ox 98.2 F 66 18 159/66 98 01/20/20 05:17 01/20/20 05:17 01/20/20 05:17 01/20/20 05:17 01/20/20 05:17 Exam: GENERAL: No acute distress. Alert and appropriate. HEENT: Peripheral field deficits bilaterally but he can see some movement LUNGS: Clear to auscultation bilaterally HEART: Irregularly irregular rhythm. ABDOMEN: Soft, + bowel sounds, non-distended, mild epigastric tenderness. EXTREMITIES: No edema. NEUROLOGIC: CN III-XII intact. BUE/BLE motor 5/5 with sensation intact. Aphasia. Assessment/Plan: 1. 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 Permissive HTN with carotid and aortic stenosis. follow up CT showed possible area of hemorrhage within infarct; stopped ASA with plan to repeat CT 01/21 and possibly start eliquis. aware of plan. 2. DM: Metformin, 1,000 mg BID. 3. Aortic Stenosis: Follow clinically. 4. Atrial Fibrillation: Toprol XL. Start Eliquis on January [address] of head Negative for bleed 5. DVT Prophylaxis: Heparin stopped 6. Advance Directives: Full code, is surrogate decision maker 7. HTN: Altace 8. Diarrhea/GI: change bowel meds to prn. add in PPI for GI prophyllaxis. Follow clinically. Check CBC in AM. 9. Chronic renal insufficiency: Given may be starting eliquis, check P33 tomorrow. 10. Estimated LOS: 01/22/2020. 01/20/20 10:25
[2020-01-20] MEDS ORDERED: Docusate CAP* 100 MG PO PRN (10:27)
[2020-01-20] MEDS: Pantoprazole TAB * 40 MG TAB PO SCH (11:20)
[2020-01-20] MEDS: Atorvastatin* 80 MG TAB PO SCH (17:42)
[2020-01-21 05:20] LABS: ABS Basophils 0.1 10^3/ul (0-0.2); ABS Eosinophils 0.2 10^3/ul (0-0.6); ABS Lymphocytes 1.8 10^3/ul (1.0-4.8); ABS Monocytes 0.6 10^3/ul (0-0.8); ABS Neutrophils 5.8 10^3/ul (1.5-7.7); Eosinophil % 2.2 %; Hematocrit 37 % (42-52); Hemoglobin 12.7 g/dL (14.0-18.0); Lymphocyte % 21.6 %; Mean Corpuscular HGB Conc 35 g/dL (31-36); Mean Corpuscular Hemoglobin 28 pg (27-31); Mean Corpuscular Volume 82 fL (80-94); Platelet Count 231 10^3/uL (150-450); Red Blood Count 4.47 10^6 /uL (4.18-5.48); Red Cell Distribution Width 14 % (10-15); White Blood Count 8.5 10^3/uL (3.5-10.8)
[2020-01-21 05:40] LABS: Albumin 3.7 g/dL (3.2-5.2); Albumin/Globulin Ratio 1.5 (1-3); BUN/Creatinine Ratio 18.9 (8-20); Calcium 9.4 mg/dL (8.6-10.3); EGFR Non-African American 54.6 (>60); Globulin 2.5 g/dL (2-4); Total Protein 6.2 g/dL (6.4-8.9)
[2020-01-21] MEDS: Ramipril CAP* 10 MG PO SCH (10:13)
[2020-01-21] MEDS: metFORMIN* 1,000 MG TAB PO SCH ×2 (10:13→17:33)
[2020-01-21] MEDS: Metoprolol Succinate XL TAB* 100 MG PO SCH (10:13)
[2020-01-21] MEDS: Pantoprazole TAB * 40 MG TAB PO SCH (10:13)
--- NOTE | 2020-01-21 16:02 | PN ---
Progress Note Date of Service: 01/21/20 Note: NARENDRA SANDOVAL was visited. Therapy notes read and reviewed. I met with Yehuda and his and training seemed to go well. His will take him home Current Medications: Active Medications Generic Name Dose Route Start Last Admin Trade Name Freq PRN Reason Stop Dose Admin Acetaminophen 650 mg 01/08/20 16:15 Tylenol Tab* PO Q6H PRN MILD PAIN or TEMP > 100.4 Atorvastatin Calcium 80 mg 01/08/20 17:00 01/20/20 17:42 Lipitor* PO 80 mg 1700 SHUANNA Administration Dextrose 12.5 gm 01/08/20 16:20 D50w Syringe 50 Ml* IV PUSH .FOR FS < 60 - SS PRN FS < 60 Docusate Sodium 100 mg 01/20/20 10:27 Colace Cap* PO BID PRN CONSTIPATION Magnesium Hydroxide 30 ml 01/08/20 16:15 01/10/20 07:47 Milk Of Magnesia Liq* PO 30 ml Q6H PRN Administration CONSTIPATION Metformin HCl 1,000 mg 01/12/20 17:00 01/21/20 10:13 Glucophage* PO 1,000 mg 0800,1700 SHAUNNA Administration Metoprolol Succinate 100 mg 01/09/20 09:00 01/21/20 10:13 Toprol Xl Tab* PO 100 mg DAILY SHAUNNA Administration Pantoprazole Sodium 40 mg 01/20/20 11:00 01/21/20 10:13 Protonix Tab* PO 40 mg DAILY SHAUNNA Administration Ramipril 10 mg 01/09/20 09:00 01/21/20 10:13 Altace Cap* PO 10 mg DAILY SHAUNNA Administration Senna 2 tab 01/08/20 16:15 01/16/20 20:48 Senokot 8.6 Mg Tab* PO 2 tab BEDTIME PRN Administration CONSTIPATION Vital Signs: Vital Signs Temp Pulse Resp BP Pulse Ox 97.2 F 74 16 147/70 97 01/21/20 05:17 01/21/20 05:17 01/21/20 05:17 01/21/20 05:17 01/21/20 05:17 Lab Results: Laboratory Results - last 24 hr 01/21/20 01/21/20 05:10 05:10 WBC 8.5 RBC 4.47 Hgb 12.7 L Hct 37 L MCV 82 MCH 28 MCHC 35 RDW 14 Plt Count 231 MPV 8.0 Neut % (Auto) 68.1 Lymph % (Auto) 21.6 [place] % (Auto) 7.5 Eos % (Auto) 2.2 Baso % (Auto) 0.6 Absolute Neuts (auto) 5.8 Absolute Lymphs (auto) 1.8 Absolute Monos (auto) 0.6 Absolute Eos (auto) 0.2 Absolute Basos (auto) 0.1 Absolute Nucleated RBC 0.0 Nucleated RBC % 0.0 Sodium 134 L Potassium 4.0 Chloride 101 Carbon Dioxide 27 Anion Gap 6 BUN 24 Creatinine 1.27 H Est GFR ( Amer) 66.0 Est GFR (Non-Af Amer) 54.6 BUN/Creatinine Ratio 18.9 Glucose 86 Calcium 9.4 Total Bilirubin 1.00 AST 18 ALT 13 Alkaline Phosphatase 76 Total Protein 6.2 L Albumin 3.7 Globulin 2.5 Albumin/Globulin Ratio 1.5 Exam: GENERAL: No acute distress. Alert and appropriate. HEENT: Peripheral field deficits bilaterally but he can see some movement LUNGS: Clear to auscultation bilaterally HEART: Irregularly irregular rhythm. ABDOMEN: Soft, + bowel sounds, non-distended, mild epigastric tenderness. EXTREMITIES: No edema. NEUROLOGIC: CN III-XII intact. BUE/BLE motor 5/5 with sensation intact. Aphasia. Assessment/Plan: 1. 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 Permissive HTN. CT showed possible area of hemorrhage within infarct; stopped ASA; repeat CT tomorrow and possibly start eliquis. 2. DM: Metformin, 1,000 mg BID. 3. Aortic Stenosis: Follow clinically. 4. Atrial Fibrillation: Toprol XL. Start Eliquis on January [address] of head Negative for bleed 5. DVT Prophylaxis: Heparin stopped may start Eliquis 6. Advance Directives: Full code, is surrogate decision maker 7. HTN: Altace 8. Diarrhea/GI: change bowel meds to prn. add in PPI for GI prophyllaxis. Follow clinically. Check CBC in AM. 9. Chronic renal insufficiency: Cr 1.27 01/21/20 16:03
[2020-01-21] MEDS: Atorvastatin* 80 MG TAB PO SCH (17:33)
[2020-01-22] MEDS: Ramipril CAP* 10 MG PO SCH (08:32)
[2020-01-22] MEDS: Metoprolol Succinate XL TAB* 100 MG PO SCH (08:32)
[2020-01-22] MEDS: metFORMIN* 1,000 MG TAB PO SCH ×2 (08:32→17:07)
[2020-01-22] MEDS: Pantoprazole TAB * 40 MG TAB PO SCH (08:32)
--- NOTE | 2020-01-22 12:32 | PMRUTEAM ---
PMRU: Team Meeting Current Status: Physical Therapy: Current Status Current Rolling Status Independent Current Supine <-> Sit Status Independent Current Sit <-> Stand Status Supervision/Touching Current Bed <-> Chair Status Supervision/Touching Transfer/Bed Mobility None,Rolling Walker Recommended Devices Current Picking Up Object Supervision/Touching Status Current Car Transfer Status Supervision/Touching Current Ambulation Assistance Supervision/Touching Status Ambulation Assistive Device None,Rolling Walker Ambulation Conditions Two or More Turns,Uneven Surfaces Current Ambulation Distance 2x150' Current Wheelchair Propulsion Not Applicable Ability Status Current Stair Climbing Status Supervision/Touching Stair Climbing Assistive Left Railing Devices Number of Stairs Climbed 10 Current Curb Assistance Status Supervision/Touching Curb Assistive Devices Rolling Walker Objective Comments 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 Pt continues to require supervision and verbal cues for functional tasks due to impaired attention and safety awareness. Occupational Therapy: Current Status Current Upper Body Dressing Supervision/Touching Status Current Lower Body Dressing Supervision/Touching Status Current Footwear Status Supervision/Touching Current Bathing Status Supervision/Touching Current Grooming Status Setup or Clean-up Assist Current Toileting Status Supervision/Touching Current Toilet Transfer Status Supervision/Touching Current Eating Status Supervision/Touching Nursing: Current Status Skin Deviations [Left Lateral Abrasion Foot] Skin Deviation Description [ healed Left Lateral Foot] Drain Type [Left Lateral Foot] None Bladder Current Status voiding without difficulty Bowel Current Status bm today. Nutrition Current Status Good appetitie Medication Current Status verbal ques to swallow, given whole in appelsause Rec Therapy: Current Status Summary of Assessment and Recreation Therapy assessment complete and pt is Clinical Impression aware of services. Pt has participated in playing [employer] and appeares to enjoy talking with racebook writer about his family. Pt is open to continued leisure visits. Treatment Goals Pt will engaged in leisure activities while on the unit, as tolerated Treatment Plan Provide recreation therapy services and encourage involvement Social Work: Current Status Discharge Plan return home with home care svs and family support Potential for Family Training pt's has attended discharge training Anticipated Discharge Home Destination Discharge With home care service and family support Nutrition: Current Status Monitoring pt w/moderate expressive and receptive aphasia; POLY AREA SUPERVISOR following for cog/ling deficits. Swallowing function appears to be intact; no texture adjustments at this time. Consistent carb diet remains appropriate; glycemic control is good w/ diet and oral agent (metformin). Per documentation, pt having BMs q 1-2 days. Skin remains intact. Consistent carb diet was briefly reviewed w/pt during assessment on 01/10. He appears to be meeting nutritional goals as outlined below. Tentative d/c date 01/21. Speech: Current Status Assessment Patient is progressing as expected. Given skilled instruction and maximal cueing faded to moderate, patient identified pictures in columns of 6 on the right side of a page, using strategies of feeling the right edge of the page, and moving his pointer finger up and down to scan. Patient repeatedly looked left and pointed to text until cued to attend right, but improved with rehearsal. Patient followed two step directions tofind two pictures given moderate cueing. Patient followed verbal commands with 2/2 details, such as "Show me your Left Elbow, and 2 of 3 details. For medical problem scenario, patient provided appropriate answers. POLY AREA SUPERVISOR engaged patient in structured conversation abnd patient related personal history narratives with moderate word-finding difficulty. Patient groped for words alone, but also gave hints to his listener. Goals: Physical Therapy: Goals Goals to Be Accomplished in ( 7-10 Days) Goal: Rolling Assistance Independent Goal Supine <-> Sit Status Independent Goal Sit <-> Stand Status Supervision/Touching Goal Bed <-> Chair Status Supervision/Touching Transfer/Bed Mobility None,Rolling Walker Recommended Devices Goal: Picking Up Object Supervision/Touching Goal: Car Transfer Status Setup or Clean-up Assist Goal: Ambulation Assistance Supervision/Touching Ambulation Assistive Devices Rolling Walker Ambulation Distance (ft) 150 Goal: Stairs Assistance Supervision/Touching Stairs Recommended Devices One Rail Number of Stairs 2x5 Goal: Curb Assistance Supervision/Touching Goal: Home Exercise Program Supervision/Touching Assistance Occupational Therapy: Goals Goals to be Completed in (Days 10-14 ) Goal Upper Body Dressing Supervision/Touching Routine Goal Lower Body Dressing Supervision/Touching Routine Goal Footwear Status Supervision/Touching Goal Bathing Routine (OT) Supervision/Touching Goal Grooming Routine Supervision/Touching Goal Toilet Hygiene and Supervision/Touching Clothing Management Routine Goal Toilet Transfer Routine Supervision/Touching Goal Functional Transfers for Supervision/Touching ADL Goal Feeding Routine Supervision/Touching Goal Light Housekeeping Tasks Substantial/Maximal Nutrition: Goals Intervention Goals 1. Intake will remain adequate to maintain stable wt 2. Adequate glycemic control per inpt parameters ( <180) 3. Pt will maintain regular bowel pattern without constipation/diarrhea Speech: Goals Speech Goal 1 Comprehension Speech Evaluation Status Goal moderate 1 Goal 1 Comments Comprehension Goal, Long-Term: Pt will use compensatory strategies to demonstrate comprehension of paragraph length verbal and written information of moderate complexity, 100% accuracy, given minimal extra time, Independently. Status: progressing as expected Comprehension Goal, Short-Term: Pt will use compensatory strategies to demonstrate comprehension of paragraph length verbal and written information of simple complexity, 90% accuracy, given moderate extra time, and Moderate skilled instruction and cueing. Status: Progressing as expected. Speech Goal 2 Expression Speech Goal 2 Evaluation moderate Status Speech Goal 2 Comments Dock Worker Goal: Pt will use conversational repair strategies to cooperatively find words in structured conversation, 100% accuracy, given extra time, Independently. Expression, Short-Term Goal #1: Pt will use conversational repair strategies to cooperatively find words in structured language activities, 75% accuracy, given Moderate skilled instruction and cueing. Status: Progressing as expected. Patient demonstrated apraxic speech such as difficulty saying "flashlight" after "bus." Expression, Short-Term Goal #2: Pt will complete automatic language tasks (SARAH, VIOLETTA, Counting, etc. ) w/100% accuracy given min/mod cues. Status: Progressing as expected Speech Goal 3 Problem Solving Speech Goal 3 Evaluation moderate Status Speech Goal 3 Comments Problem Solving Goal: Long-Term Goal: Pt will use compensatory strategies to solve moderately complex routine problems, for transfer and mobility safety, adaptive dressing, time and money management; with 100% accuracy, Independently. Status: progressing as expected Problem Solving Goal: Short-Term: Pt will use compensatory strategies to solve simple routine problems, for transfer and mobility safety, adaptive dressing, time and money management; with 80% accuracy, given skilled instruction, Moderate cueing, and extra time. Status: progressing as expected POLY AREA SUPERVISOR again presented four large pictures in a boxed table on a page, to identify, name and recall. Patient required maximnal prompting, including [id number], to point to the lower right corner of on box cell to better perceive each picture. POLY AREA SUPERVISOR modified instruction by cutting a black paper mask to show one picture at a time, and patient began to point to the lower right of each and name pictures with cueing faded to moderate. When presented again, patient preseverated on previous wods and could mnot use verbal memory, but perceived 2 picuters again within 2 minutes Social Work: Goals Discharge Plan return home with home care svs and family support Potential for Family Training pt's has attended discharge training Anticipated Discharge Home Destination Discharge With home care service and family support Nursing: Goals Bladder Goal independent Bowel Goal Independent Nutrition Goal 100% on all meals. Medication Goal supervision Care Plan: Care Plan ADL's - Improve/Maintain Start: 01/08/20 16:43 Freq: DAILY@[id number] Status: Active Target: 01/09/20 Protocol: Activity Type Activity Date Activity User E-Sign Co-Sign Detail Recorded Client Recorded Date Recorded By Document 01/21/20 15:01 [id number] 01/21/20 15:01 [id number] 01/21/20 15:01 PMRU Outcome: ADL's/ADL Transfers Orders/Interventions Occupational Therapy Evaluation & Treatment Communication Tool in Patient Room Device Yes Address Deficits Secondary To: Minor CVA Patient to receive OT 5x/wk for 60-120 Therex min/day Self Care Management Group Therapy Neuromuscular ReEducation UE/LE ADL's with Assist Yes: supervision/ setup ADL Transfers with Assist Yes: independent Toileting: Transfers,Clothing Management Yes: ,Hygeine w/Assist independent Light Kitchen/Laundry w/Assist No Other Outcome/Goals Pt tolerates OT tx sessoin well. His is present throughout session for discharge training. Pt able to provide the cues required for pt to complete his ADL routine safely. Plan for d/c home with 24hr supervision this Thrusday. Progression Toward Outcome/Goals Progressing Cardiovascular- Improve/Maintain Start: 01/08/20 18:28 Freq: DAILY@ Status: Active Target: 01/22/20 Protocol: Activity Type Activity Date Activity User E-Sign Co-Sign Detail Recorded Client Recorded Date Recorded By Document 01/22/20 08:30 [id number] 01/22/20 10:34 [id number] 01/22/20 08:30 PMRU Outcome: Cardiovascular Vital Signs q Shift for 48hrs Then BID Yes Daily Weight Ordered No Current Cardiovascular Outcome/Goal Maintain/ Achieve Baseline HR, BP , Perfusion Maintain/ Improve Perfusion Free of Abnormal Cardiac Symptoms Progression Toward Outcome/Goal Progressing Communication-Improve/Maintain Start: 01/08/20 18:28 Freq: DAILY@ Status: Active Target: 04/02/20 Protocol: Activity Type Activity Date Activity User E-Sign Co-Sign Detail Recorded Client Recorded Date Recorded By Document 01/22/20 08:30 [id number] 01/22/20 10:34 [id number] 01/22/20 08:30 PMRU Outcome: Communication/Cognitive Status Current Communication Outcome/Goals Makes Needs Known Effectively Other Communication Outcomes/Goals APHASIA Progression Toward Outcomes/Goals Progressing DVT Prophylaxis- Improve/Maintain Start: 01/08/20 18:28 Freq: DAILY@[id number] Status: Complete Target: 01/24/20 Protocol: Activity Type Activity Date Activity User E-Sign Co-Sign Detail Recorded Client Recorded Date Recorded By Document 01/16/20 12:21 [id number] 01/16/20 12:23 [id number] 01/16/20 12:21 PMRU Outcome: DVT Prophylaxis Current DVT Outcome/Goals Remains Free of DVT Free of complications from current DVT Complies with DVT Prophylaxis /Treatment Demonstrates Knowledge of DVT Prevention/ Treatment TEDS Stockings on Every AM, Off at HS Progression Toward Outcome/Goals Progressing Discharge Planning - Improve/Maintain Start: 01/08/20 18:28 Freq: DAILY@[id number] Status: Active Target: 01/24/20 Protocol: Activity Type Activity Date Activity User E-Sign Co-Sign Detail Recorded Client Recorded Date Recorded By Document 01/22/20 08:30 [id number] 01/22/20 10:34 [id number] 01/22/20 08:30 PMRU Outcome: Discharge Planning Update Patient Family No: FAMILY NOT PRESENT Current Discharge Planning Outcome/Goals Demonstrates Understanding of Discharge Plan Homecare Referral - See Comment Progression Toward Outcome/Goals Progressing Education-Improve/Maintain Start: 01/08/20 18:28 Freq: DAILY@07,1900 Status: Active Target: 01/24/20 Protocol: Activity Type Activity Date Activity User E-Sign Co-Sign Detail Recorded Client Recorded Date Recorded By Document 01/22/20 08:30 [id number] 01/22/20 10:34 [id number] 01/22/20 08:30 PMRU Outcome: Education Current Education Outcome/Goals Demonstrate/ Verbalize Understanding of Written Discharge Instructions Demonstrates Skills Encourage Questions Progression Toward Outcome/Goals Progressing /GI-Improve/Maintain Start: 01/08/20 18:28 Freq: DAILY@0700,1900 Status: Complete Target: 01/22/20 Protocol: Activity Type Activity Date Activity User E-Sign Co-Sign Detail Recorded Client Recorded Date Recorded By Document 01/20/20 07:00 [id number] 01/20/20 08:40 [id number] 01/20/20 07:00 PMRU Outcome: Genitourinary/ Gastrointestinal Current Gastrointestinal Outcome/Goals Maintain/ Achieve Bowel Regularity in Accordance with Pt's Baseline Remain Free of Emesis Prevent Constipation Progression Toward Outcome/Goals Goals Met Outcome/Goals Met Remain Free of Emesis Prevent Constipation Current Genitourinary Outcome/Goals Maintain/ Achieve Urinary Continence Maintain/ Achieve Adequate Urinary Output Remain Free of Hospital- Acquired UTI Progression Toward Outcome/Goals Goals Met Outcome/Goals Met Maintain/ Achieve Urinary Continence Remain Free of Hospital- Acquired UTI Medication Administration Start: 01/08/20 18:28 Freq: DAILY@0700,1900 Status: Active Target: 01/24/20 Protocol: Activity Type Activity Date Activity User E-Sign Co-Sign Detail Recorded Client Recorded Date Recorded By Document 01/22/20 08:30 [id number] 01/22/20 10:34 [id number] 01/22/20 08:30 PMRU Outcome: Medication Administration Assess Patient Knowledge/Teach Med Yes Education for all Meds Current Junior Financial Analyst Outcome/Goals Family/ Caregiver Administer Medications at Home Demonstrates Understanding Progression Towards Outcome/Goals Progressing Is Patient Going Home on Lovenox? No Metabolic Status- Improve/Maintain Start: 01/08/20 18:28 Freq: DAILY@0700,1900 Status: Complete Target: 01/22/20 Protocol: Activity Type Activity Date Activity User E-Sign Co-Sign Detail Recorded Client Recorded Date Recorded By Document 01/16/20 12:21 [id number] 01/16/20 12:23 [id number] 01/16/20 12:21 PMRU Outcome: Metabolic Status Have Fingersticks Been Ordered No Current Metabolic Status Outcome/Goals Maintain/ Improve Metabolic Status Progression Toward Outcome/Goals Progressing Mobility- Improve/Maintain Start: 01/08/20 17:49 Freq: DAILY@0700,1900 Status: Active Target: 01/09/20 Protocol: Activity Type Activity Date Activity User E-Sign Co-Sign Detail Recorded Client Recorded Date Recorded By Document 01/21/20 16:31 [id number] 01/21/20 16:32 [id number] 01/21/20 16:31 PMRU Outcome: Mobility Physical Therapy Evaluation and Yes Treatment Activity OOB with Assistance Yes Device Yes: FWW Assistance Yes: close supervision Patient to be seen 5x/wk for 60-120 min/ Therex day for: Mobility Training Gait Training Balance Current Mobility Outcome/Goals Maintain/ Achieve Baseline Mobility Status Improve Mobility Status Demonstrates Proper Use of Assistive Devices Free from Complications of Immobility Progression Toward Outcome/Goals Progressing Outcome/Goals Met Improve Mobility Status Demonstrates Proper Use of Assistive Devices Free from Complications of Immobility Bed Mobility Yes: Ind Transfers Yes: Ind with FWW Gait x ft Yes: Ind with FWW x150ft W/C Mobility x ft No Up/Down Stairs Yes: Supervision x1 flight, 2 rails With HEP Yes Neurological- Improve/Maintain Start: 01/08/20 18:28 Freq: DAILY@0700,1900 Status: Active Target: 01/24/20 Protocol: Activity Type Activity Date Activity User E-Sign Co-Sign Detail Recorded Client Recorded Date Recorded By Document 01/22/20 08:30 [id number] 01/22/20 10:34 [id number] 01/22/20 08:30 PMRU Outcome: Neurological Weakness/Aphasia Weakness Current Neurological Outcome/Goals Maintain/ Achieve Baseline Neurological Status Improve Neurological Status Prevent Avoidable Neurological Decline Demonstrate Knowledge of Prevention/Tx of Neuro Disorders/ Complication Maintain/ Improve Strength/ROM Progression Toward Outcome/Goals Progressing Nutrition/Swallowing- Improve/Maintain Start: 01/21/20 23:40 Freq: DAILY@699,[id number] Status: Active Target: 01/24/20 Protocol: Activity Type Activity Date Activity User E-Sign Co-Sign Detail Recorded Client Recorded Date Recorded By Document 01/22/20 00:45 [id number] 01/22/20 00:45 [id number] 01/22/20 00:45 PMRU Outcome: Nutrition/Swallowing Current Nutrition/Swallowing Outcome/ Maintain/ Goals Improve Nutritional Status Progression Toward Outcome/Goals Progressing Lack of Progression Comment fluids encouraged Rec Therapy- Improve/Maintain Start: 01/09/20 16:25 Freq: DAILY@0700,1900 Status: Active Target: 01/22/20 Protocol: Activity Type Activity Date Activity User E-Sign Co-Sign Detail Recorded Client Recorded Date Recorded By Document 01/17/20 16:58 [id number] 01/17/20 17:01 [id number] 01/17/20 16:58 PMRU Outcome: Recreation Therapy Current Rec Ther Outcome/Goals Complete Rec Therapy Assessment Meet with Patient Regularly for Support Encourage Leisure Involvement Progression Toward Outcome/Goals Progressing Lack of Progression Comment Met with pt for a 1:1 visit, pt was in good spirits and appeared to enjoy talking with this racebook writer. Nurse Charge Rn then assisted pt in reading the newspaper, as he said he was not able to see it very well. Pt and racebook writer talked about local current events. Outcome/Goals Met Complete Rec Therapy Assessment Safety- Improve/Maintain Start: 01/08/20 13:59 Freq: DAILY@0700,1900 Status: Active Target: 01/24/20 Protocol: Activity Type Activity Date Activity User E-Sign Co-Sign Detail Recorded Client Recorded Date Recorded By Document 01/22/20 08:30 [id number] 01/22/20 10:34 [id number] 01/22/20 08:30 PMRU Outcome: Safety Current Safety Outcome/Goals Remain Free of Injury or Harm Cooperates with Safety Measures for Least Restrictive Environment Prevent Falls/ Injury Other Safety Outcome/Goals PA/BA ON Progression Toward Outcome/Goals Progressing - Interdisciplinary Staff Present Counter Maker/Social Work Staff Present: Joi Mo LMSW Nursing Staff Present: Deanne Brar, RN OT Staff Present: Pina Mathew PT Staff Present: Vivienne Sapp POLY AREA SUPERVISOR Staff Present: Roldan Lowery Medicine Note: Length of Stay: 2 days Anticipated Discharge Destination: Home Tentative Discharge Date: January 24, 2020 Discharged to: Home
--- NOTE | 2020-01-22 16:51 | PN ---
Progress Note Date of Service: 01/22/20 Note: NARENDRA SANDOVAL was visited. Therapy notes read and reviewed. He was discussed in interdisciplinary team rounds. He had a follow up CT scan. report pending. Will see if he can go on anticoagulation Current Medications: Active Medications Generic Name Dose Route Start Last Admin Trade Name Freq PRN Reason Stop Dose Admin Acetaminophen 650 mg 01/08/20 16:15 Tylenol Tab* PO Q6H PRN MILD PAIN or TEMP > 100.4 Atorvastatin Calcium 80 mg 01/08/20 17:00 01/21/20 17:33 Lipitor* PO 80 mg 1700 SHAUNNA Administration Dextrose 12.5 gm 01/08/20 16:20 D50w Syringe 50 Ml* IV PUSH .FOR FS < 60 - SS PRN FS < 60 Docusate Sodium 100 mg 01/20/20 10:27 Colace Cap* PO BID PRN CONSTIPATION Magnesium Hydroxide 30 ml 01/08/20 16:15 01/10/20 07:47 Milk Of Magnesia Liq* PO 30 ml Q6H PRN Administration CONSTIPATION Metformin HCl 1,000 mg 01/12/20 17:00 01/22/20 08:32 Glucophage* PO 1,000 mg 0800,1700 SHAUNNA Administration Metoprolol Succinate 100 mg 01/09/20 09:00 01/22/20 08:32 Toprol Xl Tab* PO 100 mg DAILY SHAUNNA Administration Pantoprazole Sodium 40 mg 01/20/20 11:00 01/22/20 08:32 Protonix Tab* PO 40 mg DAILY SHAUNNA Administration Ramipril 10 mg 01/09/20 09:00 01/22/20 08:32 Altace Cap* PO 10 mg DAILY SHAUNNA Administration Senna 2 tab 01/08/20 16:15 01/16/20 20:48 Senokot 8.6 Mg Tab* PO 2 tab BEDTIME PRN Administration CONSTIPATION Vital Signs: Vital Signs Temp Pulse Resp BP Pulse Ox 98.4 F 74 16 125/65 97 01/22/20 16:40 01/22/20 16:40 01/22/20 16:40 01/22/20 16:40 01/22/20 16:40 Exam: GENERAL: No acute distress. Alert and appropriate. HEENT: Peripheral field deficits bilaterally but he can see some movement LUNGS: Clear to auscultation bilaterally HEART: Irregularly irregular rhythm. ABDOMEN: Soft, + bowel sounds, non-distended, mild epigastric tenderness. EXTREMITIES: No edema. NEUROLOGIC: CN III-XII intact. BUE/BLE motor 5/5 with sensation intact. Aphasia. Assessment/Plan: 1. 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 Permissive HTN. CT showed possible area of hemorrhage within infarct; stopped ASA; repeat CT and possibly start eliquis. 2. DM: Metformin, 1,000 mg BID. 3. Aortic Stenosis: Follow clinically. 4. Atrial Fibrillation: Toprol XL. Possibly Start Eliquis tomorrow if CT of head Negative for bleed 5. DVT Prophylaxis: Heparin stopped may start Eliquis 6. Advance Directives: Full code, is surrogate decision maker 7. HTN: Altace 8. Diarrhea/GI: change bowel meds to prn. add in PPI for GI prophyllaxis. Follow clinically. Check CBC in AM. 9. Chronic renal insufficiency: Cr 1.27 01/22/20 16:52
[2020-01-22] MEDS: Atorvastatin* 80 MG TAB PO SCH (17:07)
[2020-01-23 04:53] LABS: ABS Basophils 0.1 10^3/ul (0-0.2); ABS Eosinophils 0.2 10^3/ul (0-0.6); ABS Lymphocytes 1.9 10^3/ul (1.0-4.8); ABS Monocytes 0.8 10^3/ul (0-0.8); ABS Neutrophils 5.1 10^3/ul (1.5-7.7); Eosinophil % 2.2 %; Hematocrit 37 % (42-52); Hemoglobin 12.5 g/dL (14.0-18.0); Lymphocyte % 23.9 %; Mean Corpuscular HGB Conc 34 g/dL (31-36); Mean Corpuscular Hemoglobin 28 pg (27-31); Mean Corpuscular Volume 83 fL (80-94); Mean Platelet Volume 8.3 fL (7.4-10.4); Nucleated Red Blood Cells % 0.1; Platelet Count 212 10^3/uL (150-450); Red Blood Count 4.46 10^6 /uL (4.18-5.48); Red Cell Distribution Width 14 % (10-15); White Blood Count 8.1 10^3/uL (3.5-10.8)
[2020-01-23 05:09] LABS: Albumin 3.7 g/dL (3.2-5.2); Albumin/Globulin Ratio 1.6 (1-3); BUN/Creatinine Ratio 17.4 (8-20); Calcium 9.9 mg/dL (8.6-10.3); EGFR African American 57.1 (>60); EGFR Non-African American 47.2 (>60); Globulin 2.3 g/dL (2-4); Potassium 4.1 mmol/L (3.5-5.0); Total Bilirubin 0.9 mg/dL (0.2-1.0)
[2020-01-23] MEDS: metFORMIN* 1,000 MG TAB PO SCH ×2 (08:28→17:12)
[2020-01-23] MEDS: Ramipril CAP* 10 MG PO SCH (08:28)
[2020-01-23] MEDS: Pantoprazole TAB * 40 MG TAB PO SCH (08:28)
[2020-01-23] MEDS: Metoprolol Succinate XL TAB* 100 MG PO SCH (08:28)
--- NOTE | 2020-01-23 16:33 | PN ---
Progress Note - Progress Note Date of Service: 01/23/20 SOAP: I spoke with Dr. Main and discussed the case over the phone. I reviewed both CT and MRI images obtained in December 2019. The patient had a stroke on 2019. There is petechial parenchymal hemorrhage (Type 1) in the right occipital lobe on the most recent CT. Given his ongoing atrial fibrillation and increased risk of embolic stroke, the benefit of stroke prevention outweigh the hemorrhagic risk with anticoagulation therapy. Please discuss these risks with family. I agree with starting the patient on anticoagulation therapy, preferably Eliquis 2.5 mg twice daily (pt is 79 and has CKD with creatinine closely meeting the cutoff of creatinine >1.5). We also agreed to reduce the atorvastatin therapy to 40 mg nightly as, although controversial, statin therapy can increase the risk of ICH. Please call me for any questions. Puma Simmons MD 01/23/2020 [id number]
--- NOTE | 2020-01-23 19:14 | PN ---
Progress Note Date of Service: 01/23/20 Note: NARENDRA SANDOVAL was visited. Therapy notes read and reviewed. Case was discussed with Dr. Simmons from Neurology and later, Yehuda's . This is a tough situation, but as the patient has known atrial fibrillation and has had multiple embolic strokes, the risk of bleeding with anticoagulation is outweighed by the risk of another CVA if we don't anticoagulate. We are now [address] last [address] and will begin Eliquis 2.5 mg BID tonight. Given his Cr of 1.44, will give 2.5 BID Current Medications: Active Medications Generic Name Dose Route Start Last Admin Trade Name Freq PRN Reason Stop Dose Admin Acetaminophen 650 mg 01/08/20 16:15 Tylenol Tab* PO Q6H PRN MILD PAIN or TEMP > 100.4 Apixaban 2.5 mg 01/23/20 21:00 Eliquis* PO BID SHAUNNA Atorvastatin Calcium 40 mg 01/23/20 21:00 Lipitor* PO 2100 SHAUNNA Dextrose 12.5 gm 01/08/20 16:20 D50w Syringe 50 Ml* IV PUSH .FOR FS < 60 - SS PRN FS < 60 Docusate Sodium 100 mg 01/20/20 10:27 Colace Cap* PO BID PRN CONSTIPATION Magnesium Hydroxide 30 ml 01/08/20 16:15 01/10/20 07:47 Milk Of Magnesia Liq* PO 30 ml Q6H PRN Administration CONSTIPATION Metformin HCl 1,000 mg 01/12/20 17:00 01/23/20 17:12 Glucophage* PO 1,000 mg 0800,1700 SHAUNNA Administration Metoprolol Succinate 100 mg 01/09/20 09:00 01/23/20 08:28 Toprol Xl Tab* PO 100 mg DAILY SHAUNNA Administration Pantoprazole Sodium 40 mg 01/20/20 11:00 01/23/20 08:28 Protonix Tab* PO 40 mg DAILY SHAUNNA Administration Ramipril 10 mg 01/09/20 09:00 01/23/20 08:28 Altace Cap* PO 10 mg DAILY SHAUNNA Administration Senna 2 tab 01/08/20 16:15 01/16/20 20:48 Senokot 8.6 Mg Tab* PO 2 tab BEDTIME PRN Administration CONSTIPATION Vital Signs: Vital Signs Temp Pulse Resp BP Pulse Ox 98.5 F 65 15 149/85 100 01/23/20 15:25 01/23/20 15:25 01/23/20 15:25 01/23/20 15:25 01/23/20 17:54 Lab Results: Laboratory Results - last 24 hr 01/23/20 01/23/20 04:43 04:43 WBC 8.1 RBC 4.46 Hgb 12.5 L Hct 37 L MCV 83 MCH 28 MCHC 34 RDW 14 Plt Count 212 MPV 8.3 Neut % (Auto) 63.2 Lymph % (Auto) 23.9 [place] % (Auto) 9.9 Eos % (Auto) 2.2 Baso % (Auto) 0.8 Absolute Neuts (auto) 5.1 Absolute Lymphs (auto) 1.9 Absolute Monos (auto) 0.8 Absolute Eos (auto) 0.2 Absolute Basos (auto) 0.1 Absolute Nucleated RBC 0.0 Nucleated RBC % 0.1 Sodium 136 Potassium 4.1 Chloride 103 Carbon Dioxide 28 Anion Gap 5 BUN 25 H Creatinine 1.44 H Est GFR ( Amer) 57.1 Est GFR (Non-Af Amer) 47.2 BUN/Creatinine Ratio 17.4 Glucose 85 Calcium 9.9 Total Bilirubin 0.90 AST 16 ALT 12 Alkaline Phosphatase 66 Total Protein 6.0 L Albumin 3.7 Globulin 2.3 Albumin/Globulin Ratio 1.6 Exam: GENERAL: No acute distress. Alert and appropriate. HEENT: Peripheral field deficits bilaterally but he can see some movement LUNGS: Clear to auscultation bilaterally HEART: Irregularly irregular rhythm. ABDOMEN: Soft, + bowel sounds, non-distended, mild epigastric tenderness. EXTREMITIES: No edema. NEUROLOGIC: CN III-XII intact. BUE/BLE motor 5/5 with sensation intact. Aphasia. Assessment/Plan: 1. 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 Permissive HTN. Repeat CT showed smaller hemorrhage, will start eliquis 2.5 BID. 2. DM: Metformin, 1,000 mg BID. 3. Aortic Stenosis: Follow clinically. 4. Atrial Fibrillation: Toprol XL. Start Eliquis today 5. DVT Prophylaxis: Eliquis 6. Advance Directives: Full code, is surrogate decision maker 7. HTN: Altace 8. Diarrhea/GI: change bowel meds to prn. add in PPI for GI prophyllaxis. Follow clinically. Check CBC in AM. 9. Chronic renal insufficiency: Cr 1.44 01/23/20 19:14
[2020-01-23] MEDS: Apixaban* 2.5 MG TAB PO SCH (20:23)
[2020-01-23] MEDS ORDERED: Atorvastatin* 40 MG TAB PO SCH (21:00)
[2020-01-24 04:59] VITALS: BP 158/70
[2020-01-24] MEDS: metFORMIN* 1,000 MG TAB PO SCH (10:07)
[2020-01-24] MEDS: Metoprolol Succinate XL TAB* 100 MG PO SCH (10:07)
[2020-01-24] MEDS: Apixaban* 2.5 MG TAB PO SCH (10:07)
[2020-01-24] MEDS: Ramipril CAP* 10 MG PO SCH (10:07)
[2020-01-24] MEDS: Pantoprazole TAB * 40 MG TAB PO SCH (10:08)
--- NOTE | 2020-01-24 21:20 | DS ---
CC: Dr. Lasha Guidry * DISCHARGE SUMMARY: DATE OF ADMISSION: 01/08/20 DATE OF DISCHARGE: 01/24/20 DISCHARGE DIAGNOSES: 1. Multiple embolic cerebrovascular accidents. 2. Atrial fibrillation. 3. Diabetes mellitus. 4. Coronary artery disease. 5. Aortic stenosis. HISTORY OF ILLNESS AND HOSPITAL COURSE: For complete history of the events leading up to his rehab stay, please see the history and physical dictated by me on 01/08/20. While on the rehab unit, the patient remained fairly stable from a medical point of view. However, on 01/14/20, the patient was noted to have more difficulty participating in therapy. A new CAT scan of his brain was done which appeared to show a new area of hemorrhage in his right parietal lobe. A neurology consult was done with Dr. Bill Powell. Dr. Powell recommended stopping his aspirin. His subcutaneous heparin had also been stopped. Likewise, Dr. Powell recommended repeating his CAT scan in a week to see if or when he should start anticoagulation for his atrial fibrillation. A repeat CAT scan was done on 01/22/20. The case was discussed with Dr. Simmons on 01/23/20. Dr. Simmons reviewed his CAT scans and felt that the benefit of stroke prevention outweighed the risk of hemorrhage with anticoagulation therapy. It was decided based on his elevated creatinine and age to start the patient on 2.5 mg twice daily. This was done. The patient worked with Physical Therapy, Occupational Therapy, and Speech Therapy while on the rehab unit. He made good gains with all 3 disciplines. 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 He scored about 22/30 on the [place] Naming Test. He was impaired with executive functions and problem solving. The patient did make progress with his comprehension and expression as well as his ability to problem solve. The patient was seen by Physical Therapy. At the time of admission, the patient required supervision for bed mobility, mod assist for transfers, mod assist for ambulation. By the time of discharge, the patient was able to ambulate with supervision 150 feet and able to go up and down steps with supervision. His visual problems prevented him from achieving independence. The patient likewise was seen by Occupational Therapy. At the time of admission, the patient required mod assist for upper body dressing, max assist for lower body dressing, mod assist for toileting, mod assist for toilet transfers. By the time of discharge, the patient was supervision for all of these activities. The patient's was brought in for family training prior to discharge. He was discharged home on 01/24/20. DISCHARGE DIET: Consistent carbohydrate. DISCHARGE MEDICATIONS: 1. Eliquis 2.5 mg twice daily. 2. Lipitor 40 mg daily. 3. Metformin 1000 mg at 8 a.m. and 5 p.m. 4. Toprol-XL 100 mg daily. 5. Protonix 40 mg daily. 6. Altace 10 mg daily. SERVICES AFTER DISCHARGE: The patient will have through visiting nurse service , home nursing, home physical therapy, home occupational therapy, and home speech therapy as well as a home health aide. FOLLOWUP: He will follow up with his primary care provider at the [place], Dr. Guidry. DISPOSITION: Home. CONDITION AT DISCHARGE: Good. TIME SPENT: Time spent for this discharge was approximately 50 minutes, greater than half of that was spent with the patient and his discussing post rehabilitation therapies, medicines, and followup. [id number]/[facility] #: [id number] MARY
== END 2020-01-24 15:00 | disposition home health service (06) | DRG 56 ==
LOC: PMRU 13:53
PROVIDERS: ADMIT Physical Medicine & Rehabilitation; ATTEND Physical Medicine & Rehabilitation
PROC: F07Z5ZZ Bed Mobility Treatment (ICD-10-PCS; principal; 2020-01-08)
PROC: F07Z9ZZ Gait Training/Functional Ambulation Treatment (ICD-10-PCS; 2020-01-08)
PROC: F07Z8ZZ Transfer Training Treatment (ICD-10-PCS; 2020-01-08)
PROC: F07Z4ZZ Wheelchair Mobility Treatment (ICD-10-PCS; 2020-01-08)
PROC: F08Z0ZZ Bathing/Showering Techniques Treatment (ICD-10-PCS; 2020-01-08)
PROC: F08Z1ZZ Dressing Techniques Treatment (ICD-10-PCS; 2020-01-08)
PROC: F08Z3ZZ Feeding/Eating Treatment (ICD-10-PCS; 2020-01-08)
PROC: F08Z2ZZ Grooming/Personal Hygiene Treatment (ICD-10-PCS; 2020-01-08)
PROC: F06Z6ZZ Communicative/Cognitive Integration Skills Treatment (ICD-10-PCS; 2020-01-08)
PROC: F06Z3ZZ Aphasia Treatment (ICD-10-PCS; 2020-01-08)
DX: I69.320 Aphasia following cerebral infarction (principal); I61.1 Nontraumatic intracerebral hemorrhage in hemisphere, cortical; I69.318 Other symptoms and signs involving cognitive functions following cerebral infarction; I69.312 Visuospatial deficit and spatial neglect following cerebral infarction; E11.22 Type 2 diabetes mellitus with diabetic chronic kidney disease; I12.9 Hypertensive chronic kidney disease with stage 1 through stage 4 chronic kidney disease, or unspecified chronic kidney disease; N18.9 Chronic kidney disease, unspecified; I48.91 Unspecified atrial fibrillation; I65.29 Occlusion and stenosis of unspecified carotid artery; R19.7 Diarrhea, unspecified; I25.10 Atherosclerotic heart disease of native coronary artery without angina pectoris; Z79.84 Long term (current) use of oral hypoglycemic drugs; I25.2 Old myocardial infarction; Z79.82 Long term (current) use of aspirin; Z79.899 Other long term (current) drug therapy
CPT/HCPCS: 36415; 70450; 80053; 85025; 86706; 86803; 87340; 87389; A9270-GY; J1644

== ENCOUNTER 2020-08-11 12:04 | Observation (INO) ==
[2020-08-11 13:51] LABS: ABS Eosinophils 0.1 10^3/ul (0-0.6); ABS Lymphocytes 1.4 10^3/ul (1.0-4.8); ABS Monocytes 0.6 10^3/ul (0-0.8); ABS Neutrophils 5.6 10^3/ul (1.5-7.7); Eosinophil % 1.4 %; Hematocrit 39 % (42-52); Hemoglobin 13.3 g/dL (14.0-18.0); Lymphocyte % 17.9 %; Mean Corpuscular HGB Conc 34 g/dL (31-36); Mean Corpuscular Hemoglobin 29 pg (27-31); Mean Corpuscular Volume 84 fL (80-94); Mean Platelet Volume 8.5 fL (7.4-10.4); Platelet Count 187 10^3/uL (150-450); Red Cell Distribution Width 14 % (10-15); White Blood Count 7.8 10^3/uL (3.5-10.8)
[2020-08-11 14:11] LABS: ALT 15 U/L (7-52); AST 18 U/L (13-39); Albumin 4.1 g/dL (3.2-5.2); Albumin/Globulin Ratio 1.6 (1-3); Alkaline Phosphatase 82 U/L (34-104); Anion Gap 6 mmol/L (2-11); BUN/Creatinine Ratio 12.7 (8-20); Blood Urea Nitrogen 16 mg/dL (6-24); CO2 Carbon Dioxide 31 mmol/L (22-32); Calcium 9.8 mg/dL (8.6-10.3); Chloride 103 mmol/L (101-111); EGFR African American 66.5 (>60); EGFR Non-African American 54.9 (>60); Globulin 2.5 g/dL (2-4); Glucose 141 mg/dL (70-100); Potassium 3.7 mmol/L (3.5-5.0); Sodium 140 mmol/L (135-145); Total Protein 6.6 g/dL (6.4-8.9)
[2020-08-11 14:12] LABS: INR 1.86 (0.82-1.09); Troponin I 0.01 ng/mL (<0.03)
[2020-08-11] MEDS ORDERED: NS 0.9% 1000 ml BAG 1,000 ML IV ONE (14:44)
[2020-08-11] MEDS ORDERED: Iodixanol (CONTRAST) 320 MG/ML 100 ML SDV IV ONE (14:56)
[2020-08-11 16:08] LABS: C Reactive Protein < 1.00 mg/L (<8.01)
[2020-08-11 17:31] LABS: Urine Appearance Clear; Urine Bilirubin Negative (Negative); Urine Blood Negative (Negative); Urine Color Yellow; Urine Glucose Negative (Negative); Urine Ketones Negative (Negative); Urine Nitrite Negative (Negative); Urine Protein Negative (Negative); Urine Specific Gravity 1.016 (1.010-1.030); Urine Urobilinogen Negative (Negative)
[2020-08-11] MEDS ORDERED: Al Hydrox/Mg Hydrox/Simet LIQ 30 ML UDC PO PRN (17:31)
[2020-08-11] MEDS ORDERED: Dextrose 50% Syringe 50 ml 25 GM/50 ML SYRINGE IV PUSH PRN (17:41)
[2020-08-11] MEDS ORDERED: Gadoteridol (CONTRAST) 279.3 MG/ML 10 ML IV ONE (20:58)
[2020-08-12 07:49] LABS: HDL Cholesterol 25.5 mg/dL
[2020-08-12 13:02] VITALS: BP 138/58
== END 2020-08-12 14:14 | disposition home or self-care (01) ==
LOC: MEDTELE 12:04 → ED 12:04 → MEDTELE 22:24
PROVIDERS: ADMIT Internal Medicine; ATTEND Internal Medicine

== ENCOUNTER 2022-01-20 12:30 | Observation (INO) ==
[2022-01-20 13:26] LABS: ABS Eosinophils 0.1 10^3/ul (0-0.6); ABS Lymphocytes 1.8 10^3/ul (1.0-4.8); ABS Monocytes 0.6 10^3/ul (0-0.8); ABS Neutrophils 4.7 10^3/ul (1.5-7.7); Eosinophil % 1.1 %; Hematocrit 42 % (42-52); Hemoglobin 14.2 g/dL (14.0-18.0); Lymphocyte % 24.7 %; Mean Corpuscular HGB Conc 33 g/dL (31-36); Mean Corpuscular Hemoglobin 28 pg (27-31); Mean Corpuscular Volume 85 fL (80-94); Mean Platelet Volume 8.4 fL (7.4-10.4); Platelet Count 183 10^3/uL (150-450); Red Cell Distribution Width 15 % (10-15); White Blood Count 7.1 10^3/uL (3.5-10.8)
[2022-01-20 13:28] LABS: Urine Appearance Clear; Urine Bilirubin Negative (Negative); Urine Blood Negative (Negative); Urine Color Straw; Urine Glucose Negative (Negative); Urine Ketones Negative (Negative); Urine Nitrite Negative (Negative); Urine Protein Negative (Negative); Urine Specific Gravity 1.006 (1.002-1.030); Urine Urobilinogen Negative (Negative)
[2022-01-20] MEDS ORDERED: Lactated Ringers 1000 ml BAG 1,000 ML IV ONE (13:49)
[2022-01-20 13:50] LABS: High Sens Troponin Baseline 13 pg/mL (<20)
[2022-01-20 13:59] LABS: ALT 20 U/L (7-52); AST 18 U/L (13-39); Albumin 4.7 g/dL (3.2-5.2); Alkaline Phosphatase 117 U/L (35-149); Anion Gap 8 mmol/L (2-11); Blood Urea Nitrogen 21 mg/dL (6-24); C Reactive Protein < 1.00 mg/L (<8.01); CO2 Carbon Dioxide 33 mmol/L (22-32); Calcium 10.8 mg/dL (8.6-10.3); Chloride 100 mmol/L (101-111); Creatine Kinase 68 U/L (10-223); Globulin 2.4 g/dL (2-4); Glucose 123 mg/dL (70-100); Potassium 4.3 mmol/L (3.5-5.0); Sodium 141 mmol/L (135-145); Total Protein 7.1 g/dL (6.4-8.9); eGFR CKD-EPI 52.4 (>60)
[2022-01-20 15:24] LABS: High Sensitivity Troponin 1 Hr 13 pg/mL (<20)
[2022-01-20 16:26] LABS: INR 1.48 (0.86-1.15)
[2022-01-20] MEDS ORDERED: Labetalol IV 5 MG/ML 20 ml VIAL IV PUSH PRN (17:32)
[2022-01-20 20:44] LABS: Cholesterol 125 mg/dL; HDL Cholesterol 32.3 mg/dL; LDL Cholesterol 57 mg/dL; Triglycerides 179 mg/dL
[2022-01-21 06:40] LABS: Albumin 4.2 g/dL (3.2-5.2); Albumin/Globulin Ratio 1.8 (1-3); Globulin 2.3 g/dL (2-4); Magnesium 1.9 mg/dL (1.9-2.7); Phosphorus 2.6 mg/dL (2.5-5.0); Potassium 3.6 mmol/L (3.5-5.0); Total Bilirubin 1.4 mg/dL (0.2-1.0); Total Protein 6.5 g/dL (6.4-8.9); eGFR CKD-EPI 68.5 (>60)
[2022-01-21 07:55] LABS: Direct Bilirubin 0.2 mg/dL (0.03-0.18); Indirect Bilirubin 1.2 mg/dL (0.3-1.0)
[2022-01-24 06:45] LABS: INR 1.68 (0.86-1.15)
[2022-01-24 07:01] LABS: Calcium 9.2 mg/dL (8.6-10.3); Potassium 3.8 mmol/L (3.5-5.0); eGFR CKD-EPI 51.1 (>60)
[2022-01-24 07:09] LABS: Hematocrit 36 % (42-52); Hemoglobin 12.2 g/dL (14.0-18.0); Mean Corpuscular HGB Conc 34 g/dL (31-36); Mean Corpuscular Hemoglobin 28 pg (27-31); Mean Corpuscular Volume 84 fL (80-94); Mean Platelet Volume 8.6 fL (7.4-10.4); Platelet Count 150 10^3/uL (150-450); Red Cell Distribution Width 15 % (10-15); White Blood Count 7.4 10^3/uL (3.5-10.8)
[2022-01-24 11:25] VITALS: BP 122/61
== END 2022-01-24 15:34 | disposition home or self-care (01) ==
LOC: ED 12:30 → EDHOLD 15:54 → SUATTDRO 15:54 → INTOOBSV 15:54 → MEDTELE 22:02
PROVIDERS: ADMIT Student in an Organized Health Care Education/Training Program; ATTEND Internal Medicine

== ENCOUNTER 2022-07-27 14:37 | Observation (INO) ==
[2022-07-27 15:31] LABS: ABS Eosinophils 0.1 10^3/ul (0-0.6); ABS Lymphocytes 1.6 10^3/ul (1.0-4.8); ABS Monocytes 0.5 10^3/ul (0-0.8); ABS Neutrophils 4.6 10^3/ul (1.5-7.7); Eosinophil % 1.7 %; Hematocrit 45 % (42-52); Hemoglobin 14.6 g/dL (14.0-18.0); Lymphocyte % 22.8 %; Mean Corpuscular HGB Conc 33 g/dL (31-36); Mean Corpuscular Hemoglobin 27 pg (27-31); Mean Corpuscular Volume 83 fL (80-94); Mean Platelet Volume 7.9 fL (7.4-10.4); Nucleated Red Blood Cells % 0.2; Platelet Count 195 10^3/uL (150-450); Red Cell Distribution Width 16 % (10-15); White Blood Count 6.9 10^3/uL (3.5-10.8)
[2022-07-27 15:37] LABS: Activated Partial Thrombo Time 34.4 seconds (26.0-38.0); INR 1.41 (0.89-1.11)
[2022-07-27 15:54] LABS: High Sens Troponin Baseline 25 pg/mL (<20); High Sensitivity Troponin 1 Hr 23 pg/mL (<20)
[2022-07-27 15:59] LABS: Urine Appearance Clear; Urine Bilirubin Negative (Negative); Urine Blood Negative (Negative); Urine Color Straw; Urine Glucose Negative (Negative); Urine Ketones Negative (Negative); Urine Nitrite Negative (Negative); Urine Protein Negative (Negative); Urine Specific Gravity 1.006 (1.002-1.030); Urine Urobilinogen Negative (Negative)
[2022-07-27 16:03] LABS: ALT 15 U/L (7-52); AST 20 U/L (13-39); Albumin 4.8 g/dL (3.2-5.2); Albumin/Globulin Ratio 1.6 (1-3); Alkaline Phosphatase 104 U/L (35-149); Anion Gap 8 mmol/L (2-11); Blood Urea Nitrogen 17 mg/dL (6-24); C Reactive Protein < 1.00 mg/L (<8.01); CO2 Carbon Dioxide 29 mmol/L (22-32); Calcium 10.7 mg/dL (8.6-10.3); Chloride 102 mmol/L (101-111); Glucose 103 mg/dL (70-100); Potassium 4.1 mmol/L (3.5-5.0); Sodium 139 mmol/L (135-145); Total Protein 7.8 g/dL (6.4-8.9); eGFR CKD-EPI 58.3 (>60)
[2022-07-27 17:01] LABS: High Sensitivity Troponin 1 Hr 23 pg/mL (<20)
[2022-07-27] MEDS ORDERED: Polyethylene Glycol 3350 17 GM PACKET PO PRN (21:00)
[2022-07-28] MEDS: Potassium Chlor 10 meq TAB PO SCH (09:58)
[2022-07-28] MEDS: Cholecalciferol (VIT D3) 1,000 unit TAB PO SCH (10:00)
[2022-07-29] MEDS: Cholecalciferol (VIT D3) 1,000 unit TAB PO SCH (07:44)
[2022-07-29] MEDS: Potassium Chlor 10 meq TAB PO SCH (07:44)
[2022-07-30] MEDS: Cholecalciferol (VIT D3) 1,000 unit TAB PO SCH (10:14)
[2022-07-30] MEDS: Potassium Chlor 10 meq TAB PO SCH (10:16)
[2022-07-30 11:59] VITALS: BP 171/65
== END 2022-07-30 15:00 | disposition home or self-care (01) ==
LOC: EDHOLD 14:37 → ED 14:37 → SUATTDRO 20:08 → MED 07-28 00:55 → MEDTELE 07-28 21:05
PROVIDERS: ADMIT Internal Medicine; ATTEND Internal Medicine

== ENCOUNTER 2023-11-09 14:44 | Observation (INO) ==
[2023-11-09 15:28] LABS: ABS Eosinophils 0.2 10^3/uL (0.0-0.5); ABS Lymphocytes 1.8 10^3/uL (1.0-4.8); ABS Monocytes 0.7 10^3/uL (0.0-1.1); ABS Neutrophils 5.2 10^3/uL (1.5-7.6); Eosinophil % 1.9 %; Hematocrit 38.5 % (38-53); Hemoglobin 12.9 g/dL (13.2-16.3); Lymphocyte % 22.6 %; Mean Corpuscular Hemoglobin 27.9 pg (27-33); Mean Corpuscular Hgb Conc 33.4 g/dL (31-36); Mean Corpuscular Volume 83.6 fL (80-97); Mean Platelet Volume 7.9 fL (7.5-11.2); Platelet Count 160 10^3/uL (150-450); Red Blood Count 4.61 10^6/uL (4.06-5.63); White Blood Count 7.9 10^3/uL (3.6-10.2)
[2023-11-09 15:40] LABS: INR 1.95 (0.83-1.13)
[2023-11-09 15:58] LABS: Albumin/Globulin Ratio 1.4 (1-3); Calcium 10.2 mg/dL (8.6-10.3); Creatinine, Serum 1.48 mg/dL (0.67-1.17); Globulin 2.9 g/dL (2-4); Potassium 4.1 mmol/L (3.5-5.0); Total Bilirubin 0.8 mg/dL (0.2-1.0); Total Protein 6.9 g/dL (6.4-8.9); eGFR CKD-EPI 46.4 (>60)
[2023-11-09 17:04] LABS: High Sensitivity Troponin 1 Hr 16 pg/mL (<20)
[2023-11-09] MEDS ORDERED: Senna TAB 8.6 mg TAB PO PRN (18:17)
[2023-11-09] MEDS ORDERED: Ondansetron 4 mg VIAL 2 MG/ML 2 ml VIAL IV PRN (18:17)
[2023-11-09] MEDS ORDERED: Magnesium Hydroxide LIQ 30 ML UDC PO PRN (18:17)
[2023-11-09] MEDS ORDERED: Polyethylene Glycol 3350 17 GM PACKET PO PRN (18:17)
[2023-11-09 19:35] LABS: Rapid COVID-19 Molecular Undetected (Undetected)
[2023-11-09 19:39] LABS: Influenza A Molecular Negative (Negative); Influenza B Molecular Negative (Negative)
[2023-11-09] MEDS: Calcium Polycarbophil 625mg TB PO SCH (22:16)
[2023-11-10 06:10] LABS: ABS Basophils 0.1 10^3/uL (0.0-0.1); ABS Eosinophils 0.2 10^3/uL (0.0-0.5); ABS Monocytes 0.6 10^3/uL (0.0-1.1); ABS Neutrophils 5.6 10^3/uL (1.5-7.6); ABS Nucleated RBC 0.01 10^3/ul; Eosinophil % 2.5 %; Hematocrit 40.9 % (38-53); Hemoglobin 13.8 g/dL (13.2-16.3); Lymphocyte % 23.8 %; Mean Corpuscular Hemoglobin 28.2 pg (27-33); Mean Corpuscular Hgb Conc 33.8 g/dL (31-36); Mean Corpuscular Volume 83.3 fL (80-97); Mean Platelet Volume 7.9 fL (7.5-11.2); Nucleated Red Blood Cells % 0.1 %/100WBC (0.0-0.8); Platelet Count 173 10^3/uL (150-450); Red Blood Count 4.91 10^6/uL (4.06-5.63); Red Cell Distribution Width 14.8 % (12-17); White Blood Count 8.5 10^3/uL (3.6-10.2)
[2023-11-10 06:21] LABS: INR 1.67 (0.83-1.13)
[2023-11-10 06:30] LABS: Calcium 10.3 mg/dL (8.6-10.3); Creatinine, Serum 1.25 mg/dL (0.67-1.17); Potassium 3.8 mmol/L (3.5-5.0); eGFR CKD-EPI 56.8 (>60)
[2023-11-10] MEDS ORDERED: KCL 20 MEQ/100 ML IVPREMIX 20 MEQ/100 ML BAG IV ONE (07:11)
[2023-11-10 07:54] LABS: HDL Cholesterol 31.9 mg/dL
[2023-11-10] MEDS: Cholecalciferol (VIT D3) 1,000 unit TAB PO SCH (11:07)
[2023-11-10] MEDS: Calcium Polycarbophil 625mg TB PO SCH ×2 (11:07→21:33)
[2023-11-10] MEDS ORDERED: Regadenoson 0.4 MG/5 ML SYRINGE ONE (13:37)
[2023-11-10] MEDS ORDERED: Aminophylline 25 MG/ML VIAL ONE (13:37)
[2023-11-11 06:43] LABS: Calcium 9.8 mg/dL (8.6-10.3); Creatinine, Serum 1.45 mg/dL (0.67-1.17); Potassium 3.8 mmol/L (3.5-5.0); eGFR CKD-EPI 47.5 (>60)
[2023-11-11 07:15] LABS: ABS Eosinophils 0.2 10^3/uL (0.0-0.5); ABS Lymphocytes 1.8 10^3/uL (1.0-4.8); ABS Monocytes 0.7 10^3/uL (0.0-1.1); ABS Neutrophils 4.9 10^3/uL (1.5-7.6); ABS Nucleated RBC 0.01 10^3/ul; Eosinophil % 2.6 %; Hematocrit 41.9 % (38-53); Hemoglobin 13.6 g/dL (13.2-16.3); Lymphocyte % 23.7 %; Mean Corpuscular Hemoglobin 28.1 pg (27-33); Mean Corpuscular Hgb Conc 32.4 g/dL (31-36); Mean Corpuscular Volume 86.6 fL (80-97); Mean Platelet Volume 8.1 fL (7.5-11.2); Nucleated Red Blood Cells % 0.1 %/100WBC (0.0-0.8); Platelet Count 153 10^3/uL (150-450); Red Blood Count 4.84 10^6/uL (4.06-5.63); Red Cell Distribution Width 14.9 % (12-17); White Blood Count 7.7 10^3/uL (3.6-10.2)
[2023-11-11] MEDS: Calcium Polycarbophil 625mg TB PO SCH (08:43)
[2023-11-11] MEDS: Cholecalciferol (VIT D3) 1,000 unit TAB PO SCH (08:43)
[2023-11-11 14:19] VITALS: BP 150/83
== END 2023-11-11 16:50 | disposition home or self-care (01) ==
LOC: ED 14:44 → EDHOLD 14:44 → SUATTDRO 18:21 → MEDTELE 11-10 11:21
PROVIDERS: ADMIT Internal Medicine; ATTEND Internal Medicine

== ENCOUNTER 2023-11-21 10:14 | Observation (INO) ==
[2023-11-21 10:47] LABS: ABS Lymphocytes 0.5 10^3/uL (1.0-4.8); ABS Monocytes 0.7 10^3/uL (0.0-1.1); ABS Neutrophils 4.5 10^3/uL (1.5-7.6); Eosinophil % 0.8 %; Hematocrit 37.1 % (38-53); Hemoglobin 12.3 g/dL (13.2-16.3); Lymphocyte % 8.5 %; Mean Corpuscular Hemoglobin 27.9 pg (27-33); Mean Corpuscular Hgb Conc 33.1 g/dL (31-36); Mean Corpuscular Volume 84.2 fL (80-97); Mean Platelet Volume 8.5 fL (7.5-11.2); Platelet Count 131 10^3/uL (150-450); Red Cell Distribution Width 15.3 % (12-17); White Blood Count 5.7 10^3/uL (3.6-10.2)
[2023-11-21 11:13] LABS: High Sens Troponin Baseline 20 pg/mL (<20)
[2023-11-21 11:14] LABS: ALT 9 U/L (7-52); AST 17 U/L (13-39); Albumin 4.1 g/dL (3.2-5.2); Albumin/Globulin Ratio 1.6 (1-3); Alkaline Phosphatase 90 U/L (35-149); Anion Gap 8 mmol/L (2-16); Blood Urea Nitrogen 19 mg/dL (6-24); CO2 Carbon Dioxide 29 mmol/L (22-32); Calcium 9.8 mg/dL (8.6-10.3); Chloride 101 mmol/L (101-111); Creatinine, Serum 1.41 mg/dL (0.67-1.17); Globulin 2.6 g/dL (2-4); Glucose 119 mg/dL (70-100); Potassium 4.1 mmol/L (3.5-5.0); Sodium 138 mmol/L (135-145); Total Bilirubin 1.2 mg/dL (0.2-1.0); Total Protein 6.7 g/dL (6.4-8.9); eGFR CKD-EPI 49.1 (>60)
[2023-11-21 11:27] LABS: Alcohol, S < 13 mg/dL (<13)
[2023-11-21 14:37] LABS: Urine Appearance Cloudy; Urine Bilirubin Negative (Negative); Urine Blood 3+ (Negative); Urine Color Yellow; Urine Glucose Negative (Negative); Urine Ketones Negative (Negative); Urine Nitrite Negative (Negative); Urine Protein Negative (Negative); Urine Specific Gravity 1.013 (1.002-1.030); Urine Urobilinogen Negative (Negative)
[2023-11-21 15:03] LABS: Urine Bacteria Absent (Absent); Urine Red Blood Cell 3+(>10/hpf) (Absent); Urine White Blood Cell Absent (Absent)
[2023-11-21] MEDS ORDERED: Remdesivir 100 mg Vial 200 MG in NS 0.9% 250 ml 210 ML IV ONE (18:00)
[2023-11-21] MEDS ORDERED: hydrALAZINE 20 mg/ml 1 ML Vial IV IV SLOW PU PRN (18:22)
[2023-11-21] MEDS ORDERED: Dextrose 50% Syringe 50 ml 25 GM/50 ML SYRINGE IV PUSH PRN (18:25)
[2023-11-21] MEDS: Calcium Polycarbophil 625mg TB PO SCH (22:00)
[2023-11-22 06:56] LABS: INR 1.91 (0.83-1.13)
[2023-11-22 07:12] LABS: Albumin 3.9 g/dL (3.2-5.2); Albumin/Globulin Ratio 1.4 (1-3); Calcium 9.7 mg/dL (8.6-10.3); Creatinine, Serum 1.2 mg/dL (0.67-1.17); Globulin 2.7 g/dL (2-4); Potassium 3.6 mmol/L (3.5-5.0); Total Bilirubin 1.1 mg/dL (0.2-1.0); Total Protein 6.6 g/dL (6.4-8.9); eGFR CKD-EPI 59.6 (>60)
[2023-11-22] MEDS: Calcium Polycarbophil 625mg TB PO SCH (08:15)
[2023-11-22 09:50] VITALS: BP 139/103
[2023-11-22] MEDS ORDERED: Remdesivir 100 mg Vial 100 MG in NS 0.9% 250 ml 230 ML IV SCH (21:00)
== END 2023-11-22 15:05 | disposition home or self-care (01) ==
LOC: EDHOLD 10:14 → ED 10:14 → EDHOLD 19:50 → MED 21:00
PROVIDERS: ADMIT Hospitalist; ATTEND Hospitalist

== ENCOUNTER 2024-01-09 10:20 | Observation (INO) ==
[2024-01-09 11:08] LABS: ABS Basophils 0.1 10^3/uL (0.0-0.1); ABS Eosinophils 0.2 10^3/uL (0.0-0.5); ABS Lymphocytes 1.9 10^3/uL (1.0-4.8); ABS Monocytes 0.8 10^3/uL (0.0-1.1); ABS Neutrophils 5.8 10^3/uL (1.5-7.6); ABS Nucleated RBC 0.01 10^3/ul; Eosinophil % 2.6 %; Hematocrit 38.2 % (38-53); Hemoglobin 12.8 g/dL (13.2-16.3); Lymphocyte % 21.4 %; Mean Corpuscular Hemoglobin 27.9 pg (27-33); Mean Corpuscular Hgb Conc 33.6 g/dL (31-36); Mean Corpuscular Volume 83.2 fL (80-97); Mean Platelet Volume 8.4 fL (7.5-11.2); Nucleated Red Blood Cells % 0.1 %/100WBC (0.0-0.8); Platelet Count 157 10^3/uL (150-450); Red Blood Count 4.59 10^6/uL (4.06-5.63); White Blood Count 8.7 10^3/uL (3.6-10.2)
[2024-01-09 11:24] LABS: Activated Partial Thrombo Time 31.9 seconds (26.0-38.0); INR 1.46 (0.83-1.13)
[2024-01-09 11:27] LABS: Albumin 3.9 g/dL (3.2-5.2); Albumin/Globulin Ratio 1.5 (1-3); Creatinine, Serum 1.47 mg/dL (0.67-1.17); Direct Bilirubin 0.2 mg/dL (0.03-0.18); Globulin 2.6 g/dL (2-4); HDL Cholesterol 30.7 mg/dL; Indirect Bilirubin 0.6 mg/dL (0.3-1.0); Total Bilirubin 0.8 mg/dL (0.2-1.0); Total Protein 6.5 g/dL (6.4-8.9); eGFR CKD-EPI 46.7 (>60)
[2024-01-09 11:41] LABS: Urine Appearance Clear; Urine Bilirubin Negative (Negative); Urine Blood Negative (Negative); Urine Color Light-Yellow; Urine Glucose Negative (Negative); Urine Ketones Negative (Negative); Urine Nitrite Negative (Negative); Urine Protein Negative (Negative); Urine Specific Gravity 1.017 (1.002-1.030); Urine Urobilinogen Negative (Negative)
[2024-01-09] MEDS: Lactated Ringers 1000 ml BAG 1,000 ML IV ONE (18:32)
[2024-01-09] MEDS ORDERED: Aspirin EC 81 mg TAB.EC (enteric coated) PO SCH (21:00)
[2024-01-10 06:58] LABS: Calcium 9.9 mg/dL (8.6-10.3); Creatinine, Serum 1.26 mg/dL (0.67-1.17); Potassium 3.8 mmol/L (3.5-5.0); eGFR CKD-EPI 56.2 (>60)
[2024-01-10] MEDS: Aspirin EC 81 mg TAB.EC (enteric coated) PO SCH (09:17)
[2024-01-10] MEDS ORDERED: Warfarin per PHARMACY **NOTE FOLLOW UP SCH ×2 (15:00→16:00)
[2024-01-10] MEDS ORDERED: Enoxaparin 80 MG/0.8 ML SYR SUBCUT SCH (21:00)
[2024-01-11] MEDS ORDERED: Warfarin per PHARMACY **NOTE FOLLOW UP SCH (08:00)
[2024-01-11] MEDS: Enoxaparin 80 MG/0.8 ML SYR SUBCUT SCH (08:24)
[2024-01-11 09:30] LABS: Calcium 10.2 mg/dL (8.6-10.3); Creatinine, Serum 1.44 mg/dL (0.67-1.17); Potassium 4.2 mmol/L (3.5-5.0); eGFR CKD-EPI 47.9 (>60)
[2024-01-11] MEDS ORDERED: Sulfur Hexaflouride MICROSPHR 25 MG VIAL ONE (10:51)
[2024-01-11] MEDS: Warfarin DAILY REMINDER **NOTE FOLLOW UP SCH (16:34)
[2024-01-11] MEDS: Calcium Polycarbophil 625mg TB PO SCH (20:13)
[2024-01-12 06:29] LABS: INR 1.27 (0.83-1.13)
[2024-01-12 14:26] VITALS: BP 170/89
[2024-01-16] MEDS: Iodixanol (CONTRAST) 320 MG/ML 100 ML SDV IV ONE (09:18)
== END 2024-01-12 13:50 | disposition home or self-care (01) ==
LOC: EDHOLD 10:20 → ED 10:20 → SUATTDRO 14:12 → MEDTELE 01-10 12:05
PROVIDERS: ADMIT Student in an Organized Health Care Education/Training Program; ATTEND Internal Medicine

== ENCOUNTER 2024-01-12 19:52 | Observation (INO) ==
[2024-01-12 20:29] LABS: ABS Basophils 0.1 10^3/uL (0.0-0.1); ABS Eosinophils 0.3 10^3/uL (0.0-0.5); ABS Lymphocytes 2.7 10^3/uL (1.0-4.8); ABS Monocytes 0.9 10^3/uL (0.0-1.1); ABS Neutrophils 5.2 10^3/uL (1.5-7.6); ABS Nucleated RBC 0.01 10^3/ul; Eosinophil % 3.1 %; Hematocrit 41.9 % (38-53); Hemoglobin 14.3 g/dL (13.2-16.3); Lymphocyte % 29.7 %; Mean Corpuscular Hemoglobin 28.2 pg (27-33); Mean Corpuscular Hgb Conc 34.2 g/dL (31-36); Mean Corpuscular Volume 82.6 fL (80-97); Mean Platelet Volume 8.3 fL (7.5-11.2); Nucleated Red Blood Cells % 0.1 %/100WBC (0.0-0.8); Platelet Count 188 10^3/uL (150-450); Red Blood Count 5.07 10^6/uL (4.06-5.63); Red Cell Distribution Width 14.9 % (12-17); White Blood Count 9.2 10^3/uL (3.6-10.2)
[2024-01-12 20:31] LABS: Urine Appearance Clear; Urine Bilirubin Negative (Negative); Urine Blood Negative (Negative); Urine Color Light-Yellow; Urine Glucose Negative (Negative); Urine Ketones Negative (Negative); Urine Nitrite Negative (Negative); Urine Protein Negative (Negative); Urine Specific Gravity 1.011 (1.002-1.030); Urine Urobilinogen Negative (Negative); Urine pH 5.5 (5.0-8.0)
[2024-01-12] MEDS ORDERED: Iodixanol (CONTRAST) 320 MG/ML 100 ML SDV IV ONE (20:34)
[2024-01-12 20:37] LABS: Activated Partial Thrombo Time 38.1 seconds (26.0-38.0); INR 1.11 (0.83-1.13)
[2024-01-12] MEDS: NS 0.9% 1000 ml BAG 1,000 ML IV ONE (20:52)
[2024-01-12 21:25] LABS: Albumin 4.6 g/dL (3.2-5.2); Albumin/Globulin Ratio 1.5 (1-3); Calcium 10.9 mg/dL (8.6-10.3); Creatinine, Serum 1.49 mg/dL (0.67-1.17); Direct Bilirubin 0.2 mg/dL (0.03-0.18); HDL Cholesterol 36.4 mg/dL; Indirect Bilirubin 0.9 mg/dL (0.3-1.0); Potassium 4.6 mmol/L (3.5-5.0); Total Bilirubin 1.1 mg/dL (0.2-1.0); Total Protein 7.6 g/dL (6.4-8.9)
[2024-01-13] MEDS ORDERED: Warfarin per PHARMACY **NOTE FOLLOW UP SCH (02:00)
[2024-01-13] MEDS ORDERED: Enoxaparin 40 MG/0.4 ML SYR SUBCUT SCH (02:00)
[2024-01-13 02:45] LABS: Anion Gap 9 mmol/L (2-16); Blood Urea Nitrogen 26 mg/dL (6-24); CO2 Carbon Dioxide 25 mmol/L (22-32); Calcium 8.9 mg/dL (8.6-10.3); Chloride 106 mmol/L (101-111); Creatinine, Serum 1.27 mg/dL (0.67-1.17); Glucose 106 mg/dL (70-100); Sodium 140 mmol/L (135-145); eGFR CKD-EPI 55.7 (>60)
[2024-01-13] MEDS ORDERED: Dextrose 50% Syringe 50 ml 25 GM/50 ML SYRINGE IV PUSH PRN (03:57)
[2024-01-13 05:50] LABS: ABS Basophils 0.1 10^3/uL (0.0-0.1); ABS Eosinophils 0.3 10^3/uL (0.0-0.5); ABS Lymphocytes 1.4 10^3/uL (1.0-4.8); ABS Monocytes 0.6 10^3/uL (0.0-1.1); ABS Neutrophils 4.6 10^3/uL (1.5-7.6); ABS Nucleated RBC 0.01 10^3/ul; Eosinophil % 3.7 %; Hemoglobin 12.7 g/dL (13.2-16.3); Lymphocyte % 20.4 %; Mean Corpuscular Hemoglobin 28.2 pg (27-33); Mean Corpuscular Hgb Conc 34.2 g/dL (31-36); Mean Corpuscular Volume 82.4 fL (80-97); Mean Platelet Volume 8.4 fL (7.5-11.2); Nucleated Red Blood Cells % 0.1 %/100WBC (0.0-0.8); Platelet Count 158 10^3/uL (150-450); Red Blood Count 4.49 10^6/uL (4.06-5.63); White Blood Count 6.9 10^3/uL (3.6-10.2)
[2024-01-13 06:00] LABS: INR 1.16 (0.83-1.13)
[2024-01-13 06:43] LABS: Potassium 3.9 mmol/L (3.5-5.0)
[2024-01-13 06:44] LABS: Albumin 3.8 g/dL (3.2-5.2); Albumin/Globulin Ratio 1.5 (1-3); Calcium 9.7 mg/dL (8.6-10.3); Creatinine, Serum 1.28 mg/dL (0.67-1.17); Globulin 2.5 g/dL (2-4); Total Bilirubin 0.9 mg/dL (0.2-1.0); Total Protein 6.3 g/dL (6.4-8.9); eGFR CKD-EPI 55.2 (>60)
[2024-01-13] MEDS ORDERED: levETIRAcetam 500 MG IVPREMIX 500 MG/100 ML BAG IV SCH (10:00)
[2024-01-13] MEDS ORDERED: Warfarin DAILY REMINDER **NOTE FOLLOW UP SCH (17:00)
[2024-01-13] MEDS: Calcium Polycarbophil 625mg TB PO SCH (20:20)
[2024-01-13] MEDS: Aspirin EC 81 mg TAB.EC (enteric coated) PO SCH (21:53)
[2024-01-14] MEDS: Haloperidol 5 mg/ml SDV IV/IM 5 MG/ML AMP IV SLOW PU ONE (02:15)
[2024-01-14] MEDS: Valproic Acid IV 500 MG in NS 0.9% 100 ml BAG 100 ML IVPB ONE ×2 (17:24→18:11)
[2024-01-15 10:32] VITALS: BP 122/54
== END 2024-01-15 13:08 | disposition home or self-care (01) ==
LOC: EDHOLD 19:52 → ED 19:52 → SUATTDRO 01-13 01:00 → MEDTELE 01-13 13:11
PROVIDERS: ADMIT Student in an Organized Health Care Education/Training Program; ATTEND Internal Medicine

== ENCOUNTER 2024-02-27 07:49 | Inpatient (IN) ==
[2024-02-27] MEDS: Iodixanol (CONTRAST) 320 MG/ML 100 ML SDV IV ONE (08:19)
[2024-02-27 08:38] LABS: ABS Basophils 0.1 10^3/uL (0.0-0.1); ABS Eosinophils 0.2 10^3/uL (0.0-0.5); ABS Lymphocytes 1.4 10^3/uL (1.0-4.8); ABS Neutrophils 7.3 10^3/uL (1.5-7.6); ABS Nucleated RBC 0.02 10^3/ul; Eosinophil % 1.8 %; Hematocrit 39.9 % (38-53); Hemoglobin 13.4 g/dL (13.2-16.3); Lymphocyte % 13.7 %; Mean Corpuscular Hemoglobin 27.7 pg (27-33); Mean Corpuscular Hgb Conc 33.5 g/dL (31-36); Mean Corpuscular Volume 82.7 fL (80-97); Mean Platelet Volume 8.6 fL (7.5-11.2); Nucleated Red Blood Cells % 0.2 %/100WBC (0.0-0.8); Platelet Count 236 10^3/uL (150-450); Red Blood Count 4.82 10^6/uL (4.06-5.63); Red Cell Distribution Width 15.3 % (12-17); White Blood Count 9.9 10^3/uL (3.6-10.2)
[2024-02-27 08:55] LABS: Activated Partial Thrombo Time 38.4 seconds (26.0-38.0); INR 1.59 (0.83-1.13)
[2024-02-27 09:22] LABS: ALT 30 U/L (7-52); Albumin 4.7 g/dL (3.2-5.2); Albumin/Globulin Ratio 1.3 (1-3); Alkaline Phosphatase 129 U/L (35-149); Anion Gap 10 mmol/L (2-16); Blood Urea Nitrogen 19 mg/dL (6-24); CO2 Carbon Dioxide 31 mmol/L (22-32); Calcium 11.1 mg/dL (8.6-10.3); Carbamazepine 9.6 mcg/mL (4.0-12.0); Chloride 98 mmol/L (101-111); Cholesterol 153 mg/dL; Creatinine, Serum 1.35 mg/dL (0.67-1.17); Globulin 3.5 g/dL (2-4); Glucose 110 mg/dL (70-100); HDL Cholesterol 30.6 mg/dL; LDL Cholesterol 86 mg/dL; Sodium 139 mmol/L (135-145); Total Bilirubin 0.9 mg/dL (0.2-1.0); Total Protein 8.2 g/dL (6.4-8.9); Triglycerides 184 mg/dL; eGFR CKD-EPI 51.8 (>60)
[2024-02-27 11:03] LABS: Urine Appearance Turbid; Urine Bilirubin Negative (Negative); Urine Blood 1+ (Negative); Urine Color Light-Yellow; Urine Glucose Negative (Negative); Urine Ketones Negative (Negative); Urine Nitrite Negative (Negative); Urine Protein Trace (Negative); Urine Specific Gravity 1.028 (1.002-1.030); Urine Urobilinogen Negative (Negative); Urine pH 7.5 (5.0-8.0)
[2024-02-27 11:40] LABS: Budding Yeast Present /HPF (Absent); Urine Bacteria 1+ /HPF (Absent); Urine Red Blood Cell 3+(>10/hpf) /HPF (0-Trace); Urine White Blood Cell 3+(>20/hpf) /HPF (0-Trace)
[2024-02-27] MEDS: cefTRIAXone 1 gm/50 mL D5W 1 GM/50 ML BAG IV ONE (12:16)
[2024-02-27] MEDS ORDERED: Metoprolol Tartrate 5 mg VIAL 5 ml VIAL (1 mg/ml) IV PRN (15:31)
[2024-02-27] MEDS ORDERED: Enoxaparin 80 MG/0.8 ML SYR SUBCUT SCH (16:00)
[2024-02-27 17:27] LABS: Direct Bilirubin Redraw 0.1 mg/dL (0.1-0.5); Potassium Redraw 4.1 mmol/L (3.5-5.0)
[2024-02-27] MEDS: cefTRIAXone 1 gm/50 mL D5W 1 GM/50 ML BAG IV SCH (17:27)
[2024-02-27] MEDS: Aspirin EC 81 mg TAB.EC (enteric coated) PO SCH (19:16)
[2024-02-27] MEDS: [UNRECOGNIZED DRUG - OTHER] PO SCH (21:27)
[2024-02-27] MEDS: Enoxaparin 80 MG/0.8 ML SYR SUBCUT SCH (21:31)
[2024-02-28] MEDS: diazePAM INJ CARPUJECT 5 MG/ML SYRINGE IV ONE (08:17)
[2024-02-28 08:31] LABS: ABS Basophils 0.1 10^3/uL (0.0-0.1); ABS Eosinophils 0.2 10^3/uL (0.0-0.5); ABS Lymphocytes 1.8 10^3/uL (1.0-4.8); ABS Monocytes 0.8 10^3/uL (0.0-1.1); ABS Neutrophils 4.8 10^3/uL (1.5-7.6); Eosinophil % 2.4 %; Hematocrit 38.9 % (38-53); Hemoglobin 13.1 g/dL (13.2-16.3); Lymphocyte % 23.9 %; Mean Corpuscular Hemoglobin 27.8 pg (27-33); Mean Corpuscular Hgb Conc 33.8 g/dL (31-36); Mean Corpuscular Volume 82.4 fL (80-97); Mean Platelet Volume 7.9 fL (7.5-11.2); Platelet Count 215 10^3/uL (150-450); Red Blood Count 4.72 10^6/uL (4.06-5.63); Red Cell Distribution Width 15.4 % (12-17); White Blood Count 7.7 10^3/uL (3.6-10.2)
[2024-02-28] MEDS: diazePAM INJ CARPUJECT 5 MG/ML SYRINGE ONE (09:03)
[2024-02-28 09:07] LABS: Calcium 9.9 mg/dL (8.6-10.3); Creatinine, Serum 1.34 mg/dL (0.67-1.17); Magnesium 1.9 mg/dL (1.9-2.7); Phosphorus 3.6 mg/dL (2.5-5.0); Potassium 4.3 mmol/L (3.5-5.0); eGFR CKD-EPI 52.2 (>60)
[2024-02-28] MEDS: [UNRECOGNIZED DRUG - OTHER] PO SCH (09:22)
[2024-02-28] MEDS ORDERED: diazePAM INJ CARPUJECT 5 MG/ML SYRINGE IV PRN (09:35)
[2024-02-28] MEDS: cefTRIAXone 1 gm/50 mL D5W 1 GM/50 ML BAG IV SCH (13:03)
[2024-02-29] MEDS: VALPROIC ACID IVPB SCH ×2 (02:51→19:49)
[2024-02-29] MEDS: NS 0.9% IVPB SCH ×2 (02:51→19:49)
[2024-02-29] MEDS: Metoprolol Tartrate 5 mg VIAL 5 ml VIAL (1 mg/ml) IV SCH (02:51)
[2024-02-29 09:31] LABS: ABS Eosinophils 0.3 10^3/uL (0.0-0.5); ABS Lymphocytes 1.2 10^3/uL (1.0-4.8); ABS Monocytes 0.6 10^3/uL (0.0-1.1); ABS Neutrophils 3.7 10^3/uL (1.5-7.6); ABS Nucleated RBC 0.01 10^3/ul; Eosinophil % 4.5 %; Hemoglobin 13.1 g/dL (13.2-16.3); Lymphocyte % 20.6 %; Mean Corpuscular Hemoglobin 27.3 pg (27-33); Mean Corpuscular Hgb Conc 32.7 g/dL (31-36); Mean Corpuscular Volume 83.6 fL (80-97); Mean Platelet Volume 8.4 fL (7.5-11.2); Nucleated Red Blood Cells % 0.1 %/100WBC (0.0-0.8); Platelet Count 180 10^3/uL (150-450); Red Blood Count 4.79 10^6/uL (4.06-5.63); Red Cell Distribution Width 15.1 % (12-17); White Blood Count 5.8 10^3/uL (3.6-10.2)
[2024-02-29 09:56] LABS: Creatinine, Serum 1.34 mg/dL (0.67-1.17); Magnesium 1.9 mg/dL (1.9-2.7); Phosphorus 3.2 mg/dL (2.5-5.0); eGFR CKD-EPI 52.2 (>60)
[2024-02-29] MEDS: Lactated Ringers 1000 ml BAG 1,000 ML IV ONE (11:22)
[2024-02-29] MEDS ORDERED: NS 0.9% IVPB SCH (22:00)
[2024-02-29] MEDS ORDERED: VALPROIC ACID IVPB SCH (22:00)
[2024-03-01 06:25] LABS: ABS Basophils 0.1 10^3/uL (0.0-0.1); ABS Eosinophils 0.2 10^3/uL (0.0-0.5); ABS Lymphocytes 1.3 10^3/uL (1.0-4.8); ABS Monocytes 0.6 10^3/uL (0.0-1.1); ABS Neutrophils 3.9 10^3/uL (1.5-7.6); ABS Nucleated RBC 0.01 10^3/ul; Eosinophil % 3.7 %; Hematocrit 35.1 % (38-53); Hemoglobin 11.8 g/dL (13.2-16.3); Lymphocyte % 21.5 %; Mean Corpuscular Hemoglobin 27.5 pg (27-33); Mean Corpuscular Hgb Conc 33.6 g/dL (31-36); Mean Corpuscular Volume 81.7 fL (80-97); Mean Platelet Volume 8.2 fL (7.5-11.2); Nucleated Red Blood Cells % 0.1 %/100WBC (0.0-0.8); Platelet Count 193 10^3/uL (150-450); Red Cell Distribution Width 15.2 % (12-17); White Blood Count 6.1 10^3/uL (3.6-10.2)
[2024-03-01 06:46] LABS: Calcium 9.3 mg/dL (8.6-10.3); Creatinine, Serum 1.23 mg/dL (0.67-1.17); Magnesium 1.8 mg/dL (1.9-2.7); Phosphorus 2.9 mg/dL (2.5-5.0); Potassium 3.7 mmol/L (3.5-5.0); eGFR CKD-EPI 57.9 (>60)
[2024-03-01] MEDS: Magnesium Sulfate 2 gm BAG 2 GM/50 ML BAG IVPB ONE (09:14)
[2024-03-02] MEDS: Metoprolol Tartrate 5 mg VIAL 5 ml VIAL (1 mg/ml) IV ONE (05:26)
[2024-03-02] MEDS: diazePAM INJ CARPUJECT 5 MG/ML SYRINGE IV PRN (14:39)
[2024-03-02] MEDS: Psyllium PAK PO SCH (15:30)
[2024-03-02] MEDS: LaCOSAMide VIAL 50 MG in NS 0.9% 50 ML 50 ML IV ONE ×2 (15:51→22:49)
[2024-03-02] MEDS: Valproic Acid IV 250 MG in NS 0.9% 100 ml BAG 100 ML IVPB SCH (20:56)
[2024-03-02] MEDS: Polyethylene Glycol 3350 17 GM PACKET PO SCH (20:57)
[2024-03-02] MEDS ORDERED: Valproic Acid IV 100 MG/ML 5 ML VIAL (500 MG) IVPB SCH (21:00)
[2024-03-03] MEDS: LaCOSAMide VIAL 50 MG in NS 0.9% 50 ML 50 ML IV SCH (05:46)
[2024-03-03 10:50] LABS: ABS Eosinophils 0.2 10^3/uL (0.0-0.5); ABS Lymphocytes 0.9 10^3/uL (1.0-4.8); ABS Monocytes 0.4 10^3/uL (0.0-1.1); ABS Neutrophils 4.7 10^3/uL (1.5-7.6); Eosinophil % 2.9 %; Hematocrit 41.5 % (38-53); Lymphocyte % 14.8 %; Mean Corpuscular Hemoglobin 27.9 pg (27-33); Mean Corpuscular Hgb Conc 33.7 g/dL (31-36); Mean Corpuscular Volume 82.8 fL (80-97); Mean Platelet Volume 8.3 fL (7.5-11.2); Platelet Count 192 10^3/uL (150-450); Red Blood Count 5.01 10^6/uL (4.06-5.63); Red Cell Distribution Width 15.6 % (12-17); White Blood Count 6.3 10^3/uL (3.6-10.2)
[2024-03-03 11:38] LABS: Calcium 10.3 mg/dL (8.6-10.3); Creatinine, Serum 1.23 mg/dL (0.67-1.17); Magnesium 2.2 mg/dL (1.9-2.7); Potassium 4.2 mmol/L (3.5-5.0); eGFR CKD-EPI 57.9 (>60)
[2024-03-04 06:39] LABS: ABS Basophils 0.1 10^3/uL (0.0-0.1); ABS Eosinophils 0.3 10^3/uL (0.0-0.5); ABS Lymphocytes 1.8 10^3/uL (1.0-4.8); ABS Monocytes 0.8 10^3/uL (0.0-1.1); ABS Neutrophils 5.5 10^3/uL (1.5-7.6); Eosinophil % 3.6 %; Hematocrit 37.9 % (38-53); Hemoglobin 12.5 g/dL (13.2-16.3); Lymphocyte % 21.7 %; Mean Corpuscular Hemoglobin 27.6 pg (27-33); Mean Corpuscular Hgb Conc 33.1 g/dL (31-36); Mean Corpuscular Volume 83.5 fL (80-97); Mean Platelet Volume 8.3 fL (7.5-11.2); Platelet Count 182 10^3/uL (150-450); Red Blood Count 4.54 10^6/uL (4.06-5.63); Red Cell Distribution Width 15.2 % (12-17); White Blood Count 8.5 10^3/uL (3.6-10.2)
[2024-03-04 06:58] LABS: Calcium 9.8 mg/dL (8.6-10.3); Creatinine, Serum 1.2 mg/dL (0.67-1.17); Potassium 4.4 mmol/L (3.5-5.0); eGFR CKD-EPI 59.6 (>60)
[2024-03-04] MEDS: Magnesium Sulfate IV 1GM/100ML 1 GM/100 ML BAG IV ONE (10:05)
[2024-03-04] MEDS: LaCOSAMide VIAL 50 MG in NS 0.9% 50 ML 50 ML IV ONE (15:36)
[2024-03-04] MEDS: NS 0.9% IV SCH (21:53)
[2024-03-04] MEDS: LACOSAMIDE IV SCH (21:53)
[2024-03-05 06:36] LABS: ABS Basophils 0.1 10^3/uL (0.0-0.1); ABS Eosinophils 0.3 10^3/uL (0.0-0.5); ABS Lymphocytes 1.7 10^3/uL (1.0-4.8); ABS Monocytes 0.8 10^3/uL (0.0-1.1); ABS Neutrophils 5.5 10^3/uL (1.5-7.6); ABS Nucleated RBC 0.01 10^3/ul; Eosinophil % 3.6 %; Hematocrit 35.4 % (38-53); Hemoglobin 11.7 g/dL (13.2-16.3); Lymphocyte % 20.4 %; Mean Corpuscular Hemoglobin 27.6 pg (27-33); Mean Corpuscular Hgb Conc 32.9 g/dL (31-36); Mean Corpuscular Volume 83.9 fL (80-97); Mean Platelet Volume 8.8 fL (7.5-11.2); Nucleated Red Blood Cells % 0.1 %/100WBC (0.0-0.8); Platelet Count 186 10^3/uL (150-450); Red Blood Count 4.22 10^6/uL (4.06-5.63); White Blood Count 8.4 10^3/uL (3.6-10.2)
[2024-03-05 07:21] LABS: Calcium 9.6 mg/dL (8.6-10.3); Creatinine, Serum 1.47 mg/dL (0.67-1.17); Magnesium 2.2 mg/dL (1.9-2.7); Phosphorus 3.6 mg/dL (2.5-5.0); Potassium 4.5 mmol/L (3.5-5.0); eGFR CKD-EPI 46.7 (>60)
[2024-03-05] MEDS: Valproic Acid IV 250 MG in NS 0.9% 100 ml BAG 100 ML IVPB SCH (20:12)
[2024-03-05] MEDS: Lactated Ringers 1000 ml BAG 500 ML IV ONE (20:12)
[2024-03-05] MEDS: LaCOSAMide VIAL 100 MG in NS 0.9% 50 ML 50 ML IV ONE (21:58)
[2024-03-06] MEDS: hydrALAZINE 20 mg/ml 1 ML Vial IV IV SLOW PU ONE (01:48)
[2024-03-06] MEDS: LaCOSAMide VIAL 100 MG in NS 0.9% 50 ML 50 ML IV SCH (12:11)
[2024-03-06] MEDS: VALPROIC ACID IVPB SCH (13:59)
[2024-03-06] MEDS: NS 0.9% IVPB SCH (13:59)
[2024-03-06] MEDS: Valproic Acid IV 250 MG in NS 0.9% 100 ml BAG 100 ML IVPB SCH (20:33)
[2024-03-07 05:31] LABS: ABS Basophils 0.1 10^3/uL (0.0-0.1); ABS Eosinophils 0.3 10^3/uL (0.0-0.5); ABS Lymphocytes 1.4 10^3/uL (1.0-4.8); ABS Monocytes 0.9 10^3/uL (0.0-1.1); ABS Neutrophils 8.4 10^3/uL (1.5-7.6); Eosinophil % 2.3 %; Hematocrit 36.4 % (38-53); Hemoglobin 11.9 g/dL (13.2-16.3); Lymphocyte % 12.4 %; Mean Corpuscular Hemoglobin 27.4 pg (27-33); Mean Corpuscular Hgb Conc 32.6 g/dL (31-36); Mean Corpuscular Volume 83.9 fL (80-97); Mean Platelet Volume 8.3 fL (7.5-11.2); Platelet Count 179 10^3/uL (150-450); Red Blood Count 4.34 10^6/uL (4.06-5.63); Red Cell Distribution Width 15.9 % (12-17)
[2024-03-07 06:17] LABS: Calcium 9.7 mg/dL (8.6-10.3); Creatinine, Serum 1.13 mg/dL (0.67-1.17); Magnesium 1.9 mg/dL (1.9-2.7); Phosphorus 3.1 mg/dL (2.5-5.0); Potassium 4.1 mmol/L (3.5-5.0); eGFR CKD-EPI 64.1 (>60)
[2024-03-08 04:26] LABS: Rapid COVID-19 Molecular Undetected (Undetected)
[2024-03-08] MEDS: hydrALAZINE 20 mg/ml 1 ML Vial IV IV SLOW PU ONE (06:08)
[2024-03-08 07:10] LABS: ABS Basophils 0.1 10^3/uL (0.0-0.1); ABS Eosinophils 0.2 10^3/uL (0.0-0.5); ABS Lymphocytes 2.1 10^3/uL (1.0-4.8); ABS Monocytes 0.6 10^3/uL (0.0-1.1); ABS Neutrophils 5.1 10^3/uL (1.5-7.6); Eosinophil % 2.4 %; Hematocrit 37.2 % (38-53); Hemoglobin 12.4 g/dL (13.2-16.3); Lymphocyte % 25.6 %; Mean Corpuscular Hemoglobin 27.9 pg (27-33); Mean Corpuscular Hgb Conc 33.2 g/dL (31-36); Mean Corpuscular Volume 83.9 fL (80-97); Mean Platelet Volume 8.5 fL (7.5-11.2); Platelet Count 163 10^3/uL (150-450); Red Blood Count 4.44 10^6/uL (4.06-5.63); Red Cell Distribution Width 15.8 % (12-17)
[2024-03-08 07:45] LABS: Creatinine, Serum 1.26 mg/dL (0.67-1.17); Magnesium 1.9 mg/dL (1.9-2.7); Phosphorus 2.8 mg/dL (2.5-5.0); Potassium 3.6 mmol/L (3.5-5.0); eGFR CKD-EPI 56.2 (>60)
[2024-03-08 10:09] VITALS: BP 111/58
== END 2024-03-08 13:35 | DRG 884 ==
LOC: EDHOLD 07:49 → ED 07:49 → SUATTDRO 13:51 → MEDTELE 16:11 → SUATTDRO 02-29 09:57
PROVIDERS: ADMIT Hospitalist; ATTEND Student in an Organized Health Care Education/Training Program